=== PATIENT | female | born 1995 | race American Indian/Alaskan Native ===

== ENCOUNTER 2016-12-09 19:15 | Inpatient (IN) | payer SELFPAY ==
[2016-12-09] MEDS ORDERED: NACL 0.9% 1000 ML 1,000 ML ONE (20:02)
[2016-12-09] MEDS ORDERED: ZOFRAN ONE (20:02)
[2016-12-09 20:06] LABS: Anion Gap 35 mmol/L; BUN/Creatinine Ratio 23.75; Blood Urea Nitrogen 19 mg/dL (7-17); Calcium 9.5 mg/dL (8.4-10.2); Carbon Dioxide 15 mmol/L (22-30); Chloride 96.2 mmol/L (98-107); Glucose 125 mg/dL (65-100); Potassium 4.2 mmol/L (3.6-5.0); Sodium 142 mmol/L (137-145)
[2016-12-09] MEDS ORDERED: ZOFRAN IV ONE (20:13)
[2016-12-09] MEDS ORDERED: NACL 0.9% 1000 ML 1,000 ML IV ONE ×2 (20:13→20:49)
[2016-12-09 20:14] LABS: Urine Drugs of Abuse Note Disclamer
[2016-12-09 20:15] LABS: Basophils % (Auto) 0.4 % (0.0-1.8); Hematocrit 41.9 % (30.3-42.9); Hemoglobin 13.1 gm/dl (10.1-14.3); Mean Corpuscular HGB Conc 31 % (30-34); Mean Corpuscular Hemoglobin 27 pg (28-32); Mean Corpuscular Volume 88 fl (79-97); Platelet Count 504 K/mm3 (140-440); Red Blood Count 4.79 M/mm3 (3.65-5.03); Red Cell Distribution Width 16.8 % (13.2-15.2); White Blood Count 7.3 K/mm3 (4.5-11.0)
[2016-12-09 20:47] LABS: Bilirubin,Urine NEG (Negative); Blood,Urine NEG (Negative); Ketones,Urine 80 mg/dL (Negative); Leukocyte Esterase,Urine NEG (Negative); Mucus,Urine FEW /HPF; Nitrite,Urine NEG (Negative); RBC,Urine < 1.0 /HPF (0.0-6.0); Urobilinogen,Urine < 2.0 mg/dL (<2.0); WBC,Urine < 1.0 /HPF (0.0-6.0)
--- NOTE | 2016-12-09 20:48 | Emergency Department Report ---
HPI - General Chief Complaint: Hyperglycemia Time Seen by Provider: 12/09/16 20:09 - HPI HPI: This is a 21-year-old female presents to the emergency department, brought in by her mother, with complaint of uncontrolled diabetes and some possible altered mental status. Patient does not live with her mother but came to the mother's house early this morning saying that she was not feeling well and that she had been out of her Lantus and regular insulin for a couple of weeks. Her blood sugar was checked by mom and it was "high", greater than 500. The patient previously had taken 30 units of Lantus so this is what she was given. The blood sugar appeared to come down but they continue to check her ketones and they remained elevated and the patient appeared very fatigued so she was brought back in for further evaluation. She does not have a primary care physician. Other than the insulin-dependent diabetes she does not have any other significant past medical history. Patient is currently a poor historian secondary to her current medical condition. ED Past Medical Hx - Past Medical History Hx Congestive Heart Failure: No Hx Diabetes: Yes Hx Asthma: No Hx COPD: No Hx HIV: No Additional medical history: HX of MRSA. NEUROPATHY? - Social History Smoking Status: Never Smoker Substance Use Type: None - Medications Home Medications: Home Medications Medication Instructions Recorded Confirmed Last Taken Type Insulin Aspart [NovoLOG 100 0 units .ROUTE AC 03/04/15 04/15/15 04/14/15 History UNITS/ML VIAL] Insulin NPH/Regular [Novolin 70/30] 40 unit SQ BID 03/04/15 04/15/15 04/14/15 History Ibuprofen [Motrin] 800 mg PO Q8HR PRN #60 tablet 04/02/15 04/15/15 04/14/15 Rx Gabapentin [Neurontin] 100 mg PO Q8HR 04/09/15 04/15/15 04/14/15 History HYDROcodone/APAP 5-325 [[place] 1 each PO Q6HR PRN #14 tablet 04/09/15 04/15/15 Rx 5-325 mg TAB] traMADol [Ultram] 50 mg PO Q6HR PRN #20 tablet 04/15/15 Unknown Rx ED Review of Systems ROS: Stated complaint: KEYTONES Other details as noted in HPI Comment: All other systems reviewed and negative Constitutional: weakness. denies: chills, fever Eyes: denies: eye pain, eye discharge, vision change ENT: denies: ear pain, throat pain Respiratory: denies: cough, shortness of breath, wheezing Cardiovascular: denies: chest pain, palpitations Endocrine: increased thirst, increased urine Gastrointestinal: abdominal pain, nausea, vomiting Genitourinary: denies: dysuria, discharge Musculoskeletal: denies: back pain, joint swelling, arthralgia Neurological: weakness. denies: headache, paresthesias Physical Exam - Physical Exam Vital Signs: Vital Signs 12/09/16 19:21 Temperature 98.3 F Pulse Rate 106 H Respiratory 18 Rate Blood Pressure 116/77 O2 Sat by Pulse 100 Oximetry Physical Exam: GENERAL: The patient is ill-appearing. HENT: Normocephalic. Atraumatic. Patient has moist mucous membranes. EYES: Extraocular motions are intact. Pupils equal reactive to light bilaterally. NECK: Supple. Trachea is midline. CHEST/LUNGS: Clear to auscultation. There is no respiratory distress noted. HEART/CARDIOVASCULAR: Regular. There is mild tachycardia. There is no gallop rub or murmur. ABDOMEN: Abdomen is soft. There is upper tenderness to palpation of the abdomen. No guarding or rebound tenderness. Patient has normal bowel sounds. There is no abdominal distention. SKIN: Skin is warm and dry. NEURO: Patient is very fatigued but is arousable. She answers questions appropriately but does so in a very low soft voice. The patient will go back to sleep if not stimulated. The patient has no focal neurologic deficits. MUSCULOSKELETAL: There is no tenderness or deformity. There is no limitation range of motion. There is no evidence of acute injury. ED Course Vital Signs 12/09/16 19:21 Temperature 98.3 F Pulse Rate 106 H Respiratory 18 Rate Blood Pressure 116/77 O2 Sat by Pulse 100 Oximetry ED Medical Decision Making - Lab Data Result diagrams: 12/09/16 19:41 12/09/16 23:36 - EKG Data -: EKG Interpreted by Me EKG shows normal: sinus rhythm, axis, intervals, QRS complexes, ST-T waves Rate: tachycardia (106 bpm) - EKG Data When compared to previous EKG there are: previous EKG unavailable Interpretation: normal EKG (with sinus tach) - Radiology Data Radiology results: report reviewed CT of the abdomen and pelvis with IV contrast shows inflammatory changes adjacent to the tail of the pancreas with suspicion for acute pancreatitis. Thickened appearance of the distal esophagus likely reflecting edema and/or esophagitis. - Medical Decision Making 21-year-old female presents to the emergency department with some increased fatigue and/or transient altered mental status, diabetic issues and some abdominal pain. The patient appeared to have significant hyperglycemia prior to presentation based on history from mom. She did not have any hyperglycemia upon arrival but does have a high anion gap of 35. She also has a significant amount of ketones seen in the urine. The patient is arousable but is very sleepy. She had tenderness to palpation on the abdomen so I added LFTs and lipase and lipase came back at greater than 400. His recent CT of the abdomen and pelvis was done that shows acute pancreatitis. She was given 2 L of IV fluid resuscitation. Patient appears to have some borderline diabetic ketoacidosis in which the hyperglycemia was treated but the patient still remains with high anion gap ketosis. She will be admitted to the ICU and has been accepted for admission by Dr. Bosch. - Differential Diagnosis DKA, HHNK, pancreatitis, cholecystitis Critical Care Time: Yes Critical care time in (mins) excluding proc time.: 31 Critical care attestation.: If time is entered above; I have spent that time in minutes in the direct care of this critically ill patient, excluding procedure time. Critical care time spent on this patient during her initial evaluation, multiple re-evaluations, ordering and interpretation of labs and imaging, discussion with the family and the admitting hospitalist, disposition planning. Critical Care Time: 31 minutes ED Disposition Clinical Impression: Non compliance w medication regimen, Lactic acidosis, High anion gap metabolic acidosis, Ketosis Acute pancreatitis Qualifiers: Pancreatitis type: unspecified pancreatitis type Acute pancreatitis complication: no infection or necrosis Qualified Code(s): K85.90 - Acute pancreatitis without necrosis or infection, unspecified Disposition: OP ADMIT IP TO THIS HOSP Is pt being admited?: Yes Condition: Fair Time of Disposition: 00:27
[2016-12-09 21:09] LABS: Alanine Aminotransferase 31 units/L (7-56); Albumin 3.8 g/dL (3.9-5); Alkaline Phosphatase 165 units/L (35-129); Total Protein 7.7 g/dL (6.3-8.2)
[2016-12-09 21:11] LABS: Bilirubin,Direct < 0.2 mg/dL (0-0.2)
[2016-12-09] MEDS ORDERED: PEPCID IV ONE (21:14)
[2016-12-09 21:20] LABS: Lipase 422 units/L (13-60)
[2016-12-09] MEDS ORDERED: NACL ONE (22:03)
--- NOTE | 2016-12-09 22:38 | Cat Scan Report ---
FINAL REPORT EXAM: CT ABDOMEN PELVIS W CON HISTORY: Abd pain TECHNIQUE: CT abdomen and pelvis with intravenous contrast PRIORS: None. FINDINGS: No acute abnormality identified in the lung bases. There is thickened appearance of the shirley of the distal esophagus which appear edematous. No focal abnormality identified within the liver parenchyma. The spleen demonstrates normal size and attenuation. There is hazy and strandy inflammatory appearing change adjacent to the tail of the pancreas. The pancreas enhances normally. No evidence for pseudocyst. The kidneys demonstrate symmetric contrast enhancement. No evidence of hydronephrosis. The adrenal glands are unremarkable Abdominal aorta is normal in caliber. No pathologically enlarged lymph nodes are identified. No signs of free fluid or free air No evidence of small bowel dilatation. Colon is nondistended. No pericolonic inflammatory change. Urinary bladder is unremarkable. IMPRESSION: Inflammatory appearing change seen adjacent to the tail of the pancreas suspect acute pancreatitis Thickened appearance of the distal esophagus likely reflecting edema and/or esophagitis
[2016-12-09] MEDS ORDERED: D50W (25GM) Syringe IV PRN (23:30)
[2016-12-09] MEDS ORDERED: TYLENOL PO PRN (23:30)
[2016-12-09] MEDS ORDERED: PROTONIX IV ONE (23:33)
--- NOTE | 2016-12-09 23:33 | History and Physical Report ---
History of Present Illness Date of examination: 12/09/16 History of present illness: 21-year-old lady with a history of type 1 diabetes comes emergency room with complaints of nausea vomiting since this morning. Mom at bedside state that she has not taken her insulin in 5 days. She checked her sugar this morning and it read high, the patient to Lantus and regular insulin at home prior to coming into the emergency room. She continued to vomit and became lethargic. She had coffee-ground emesis Review Of Systems: Constitutional: no weight loss Ears, eyes, nose, mouth and throat: no nasal congestion, no nasal discharge, no sinus pressure, blurry vision, diplopia Neck: No neck pain or rigidity. Cardiovascular: NO chest pain, orthopnea, palpitations Respiratory: No shortness of breath, cough Gastrointestinal: abdominal pain, hematochezia Genitourinary : no dysuria, frequency , hematuria Musculoskeletal: no muscle ache Integumentary: no rash, no pruritis Neurological: no parathesias, focal weakness Endocrine: no cold or heat intolerance, no polyuria or polydipsia Hematologic/Lymphatic: no easy bruising, no easy bleeding, no gland swelling Allergic/Immunologic: no urticaria, no angioedema. PAST MEDICAL HISTORY:type 1 diabetes PAST SURGICAL HISTORY: None FAMILY HISTORY:diabetes SOCIAL HISTORY: Mom denies alcohol, tobacco, drugs Medications and Allergies Allergies Allergy/AdvReac Type Severity Reaction Status Date / Time Penicillins Allergy Anaphylaxis Verified 12/09/16 19:21 sulfamethoxazole Allergy Hives Verified 12/09/16 19:21 [From Bactrim] trimethoprim [From Bactrim] Allergy Hives Verified 04/09/15 17:04 Home Medications Medication Instructions Recorded Confirmed Last Taken Type Insulin Aspart [NovoLOG 100 0 units .ROUTE AC 03/04/15 04/15/15 04/14/15 History UNITS/ML VIAL] Insulin NPH/Regular [Novolin 70/30] 40 unit SQ BID 03/04/15 04/15/15 04/14/15 History Ibuprofen [Motrin] 800 mg PO Q8HR PRN #60 tablet 04/02/15 04/15/15 04/14/15 Rx Gabapentin [Neurontin] 100 mg PO Q8HR 04/09/15 04/15/15 04/14/15 History HYDROcodone/APAP 5-325 [[place] 1 each PO Q6HR PRN #14 tablet 04/09/15 04/15/15 Rx 5-325 mg TAB] traMADol [Ultram] 50 mg PO Q6HR PRN #20 tablet 04/15/15 Unknown Rx Exam - Physical Exam Narrative exam: Gen. appearance: Patient lying in bed in no acute distress HEENT: Normocephalic/atraumatic, pupils equal round reactive to light, extra alkaline movement intact, no scleral icterus, no JVD or thyromegaly or nodule, neck is supple, mucous membrane moist, no erythema or exudate Heart: S1-S2, regular rate and rhythm Lungs: Clear to auscultation bilateral breathing comfortable Abdomen: Positive bowel sounds, tender all over, nondistended, no organomegaly Extremities: No edema, cyanosis, clubbing Neuro:: Allergic, difficult to assess Skin: No rash, nodules, warm dry - Constitutional Vitals: Temp Pulse Resp BP Pulse Ox 98.3 F 111 H 21 108/55 100 12/09/16 19:21 12/09/16 23:15 12/09/16 23:15 12/09/16 23:15 12/09/16 19:21 Results - Labs CBC & Chem 7: 12/10/16 Unknown 12/10/16 23:10 Labs: Abnormal lab results 12/09/16 12/09/16 12/09/16 Range/Units 19:29 19:32 19:41 MCH 27 L (28-32) pg RDW 16.8 H (13.2-15.2) % Plt Count 504 H (140-440) K/mm3 Lymph # 1.1 L (1.2-5.4) K/mm3 Seg Neutrophils % 81.3 H (40.0-70.0) % Chloride 96.2 L (98-107) mmol/L Carbon Dioxide 15 L (22-30) mmol/L BUN 19 H (7-17) mg/dL Glucose 125 H (65-100) mg/dL POC Glucose 127 H (70-105) Lactic Acid (0.7-2.0) mmol/L Alkaline Phosphatase (35-129) units/L Albumin (3.9-5) g/dL Lipase (13-60) units/L 12/09/16 12/09/16 12/09/16 Range/Units 20:48 20:49 21:16 MCH (28-32) pg RDW (13.2-15.2) % Plt Count (140-440) K/mm3 Lymph # (1.2-5.4) K/mm3 Seg Neutrophils % (40.0-70.0) % Chloride (98-107) mmol/L Carbon Dioxide (22-30) mmol/L BUN (7-17) mg/dL Glucose (65-100) mg/dL POC Glucose 155 H (70-105) Lactic Acid 6.30 H* (0.7-2.0) mmol/L Alkaline Phosphatase 165 H (35-129) units/L Albumin 3.8 L (3.9-5) g/dL Lipase 422 H (13-60) units/L - Imaging and Cardiology EKG: image reviewed CT scan - abdomen: report reviewed CT scan - pelvis: report reviewed Assessment and Plan Assessment DKA Pancreatitis secondary to #1 Coffee-ground emesis, secondary to persistent nausea vomiting Plan Admit medicine Placed on nothing by mouth diet Start IV fluids, insulin drip, check serial chemistry, fingersticks Consult critical care, start Protonix, monitor hemoglobin DVT prophylaxis with SCD
[2016-12-10 00:07] LABS: Anion Gap 26 mmol/L; BUN/Creatinine Ratio 21.42; Blood Urea Nitrogen 15 mg/dL (7-17); Calcium 8.8 mg/dL (8.4-10.2); Carbon Dioxide 18 mmol/L (22-30); Chloride 99.6 mmol/L (98-107); Glucose 156 mg/dL (65-100); Magnesium 1.9 mg/dL (1.7-2.3); Phosphorous 2.9 mg/dL (2.5-4.5); Potassium 4.4 mmol/L (3.6-5.0); Sodium 139 mmol/L (137-145)
[2016-12-10 00:43] LABS: Hematocrit 35.5 % (30.3-42.9); Hemoglobin 11.5 gm/dl (10.1-14.3)
[2016-12-10] MEDS: ZOFRAN IV PRN ×4 (00:47→21:13)
[2016-12-10] MEDS: D5W/0.45% NACL/KCL 20 MEQ 20 MEQ/1,000 ML BAG IV SCH ×2 (00:47→09:08)
[2016-12-10] MEDS: NovoLIN R 100 UNITS in NACL 0.9% 99 ML IV SCH ×11 (00:47→19:01)
[2016-12-10 04:45] LABS: Anion Gap 27 mmol/L; BUN/Creatinine Ratio 16.25; Blood Urea Nitrogen 13 mg/dL (7-17); Carbon Dioxide 18 mmol/L (22-30); Chloride 101.4 mmol/L (98-107); Glucose 120 mg/dL (65-100); Sodium 142 mmol/L (137-145)
[2016-12-10 06:13] LABS: Basophils % (Auto) 0.1 % (0.0-1.8); Hematocrit 35.7 % (30.3-42.9); Hemoglobin 11.5 gm/dl (10.1-14.3); Mean Corpuscular HGB Conc 32 % (30-34); Mean Corpuscular Hemoglobin 28 pg (28-32); Mean Corpuscular Volume 86 fl (79-97); Platelet Count 432 K/mm3 (140-440); Red Blood Count 4.13 M/mm3 (3.65-5.03); Red Cell Distribution Width 16.4 % (13.2-15.2); White Blood Count 12.5 K/mm3 (4.5-11.0)
[2016-12-10 06:26] LABS: Anion Gap 24 mmol/L; BUN/Creatinine Ratio 17.14; Blood Urea Nitrogen 12 mg/dL (7-17); Carbon Dioxide 20 mmol/L (22-30); Chloride 101.7 mmol/L (98-107); Glucose 139 mg/dL (65-100); Potassium 3.8 mmol/L (3.6-5.0); Sodium 142 mmol/L (137-145)
--- NOTE | 2016-12-10 07:12 | Admit Criteria Form ---
Admission Criteria Documentation: PANCREATITIS Clinical Indications for Admission to Inpatient Care (Place 'X' for any and all applicable criteria): Admission is indicated for 1 or more of the following (1)(2)(3)(4): [X]I. Acute pancreatitis[A] as indicated by 2 or MORE of the following: [ ]a) Abdominal pain (eg, epigastric, left upper quadrant) [X]b) Serum amylase or serum lipase greater than 3 times the upper limit of normal [X]c) Characteristic findings from abdominal imaging (eg, pancreatic inflammation, pancreatic necrosis, peripancreatic fluid collection)[B] [ ]II. Pancreatitis (acute or chronic ) requiring inpatient care as indicated by 1 or more of the following [ ]a) Inability to maintain oral hydration Hypoxemia [ ]b) Evidence of infection (eg, fever, peripancreatic abscess) [ ]c) Severe pain requiring acute inpatient management [ ]d) Hemodynamic instability [ ]e) Hypoxemia [ ]f) Acute renal failure [ ]g) Severe electrolyte abnormalities Extended stay beyond goal length of stay may be needed for (1)(11) [ ]a) Severe acute pancreatitis (10)(19) [ ]b) Persistent symptoms, ascites, or pleural effusion [ ]c) Abdominal compartment syndrome (10) [ ]d) Late complications [ ]e) Gallstones in gallbladder [ ]f) Acute renal failure (27) The original [employer] content created by [employer] has been revised. The portions of the content which have been revised are identified through the use of italic text or in bold,and [facility] has neither reviewed nor approved the modified material.All other unmodified content is copyright [facility]. Please see references footnoted in the original [facility] edition 2016 Admission Criteria Met: Yes
[2016-12-10 08:02] LABS: Hematocrit 35.2 % (30.3-42.9); Hemoglobin 11.5 gm/dl (10.1-14.3)
[2016-12-10 08:21] LABS: Anion Gap 25 mmol/L; BUN/Creatinine Ratio 15.71; Blood Urea Nitrogen 11 mg/dL (7-17); Calcium 8.8 mg/dL (8.4-10.2); Carbon Dioxide 19 mmol/L (22-30); Glucose 114 mg/dL (65-100); Potassium 3.9 mmol/L (3.6-5.0); Sodium 142 mmol/L (137-145)
[2016-12-10] MEDS: PROTONIX IV SCH (10:20)
--- NOTE | 2016-12-10 13:17 | Progress Note ---
Assessment and Plan Assessment and plan: DKA. Continue IV insulin and IV fluids. Follow-up BMP. Transition to long- acting insulin once and anion gap is closed. Acute pancreatitis. Continue nothing by mouth. IV fluid hydration and pain control. Coffee-ground emesis. Etiology likely secondary to Jossie-Avalos tear from vomiting. Consider GI consultation. Continue to monitor H&H closely. Metabolic encephalopathy. Resolved. Lactic acidosis. Etiology likely secondary to #1. No evidence of infectious etiology at this time. Leukocytosis. Most likely stress-induced secondary to #1. History Interval history: No new complaints. Hospitalist Physical - Constitutional Vitals: Temp Pulse Resp BP Pulse Ox 98.3 F 101 H 14 116/88 98 12/10/16 07:44 12/10/16 11:14 12/10/16 11:14 12/10/16 11:14 12/10/16 11:14 General appearance: Present: no acute distress, well-nourished - EENT Eyes: Present: PERRL, EOM intact ENT: hearing intact, clear oral mucosa, dentition normal - Neck Neck: Present: supple, normal ROM - Respiratory Respiratory effort: normal Respiratory: bilateral: CTA - Cardiovascular Rhythm: regular Heart Sounds: Present: S1 & S2. Absent: gallop, rub - Extremities Extremities: no ischemia, No edema, Full ROM - Abdominal General gastrointestinal: soft, non-tender, non-distended, normal bowel sounds - Integumentary Integumentary: Present: clear, warm, dry - Neurologic Neurologic: CNII-XII intact, moves all extremities Results - Labs CBC & Chem 7: 12/10/16 Unknown 12/10/16 07:32 Labs: Laboratory Last Values WBC 12.5 K/mm3 (4.5-11.0) H 12/10/16 05:32 RBC 4.13 M/mm3 (3.65-5.03) 12/10/16 05:32 Hgb 11.5 gm/dl (10.1-14.3) 12/10/16 Unknown Hct 35.5 % (30.3-42.9) D 12/10/16 Unknown MCV 86 fl (79-97) 12/10/16 05:32 MCH 28 pg (28-32) 12/10/16 05:32 MCHC 32 % (30-34) 12/10/16 05:32 RDW 16.4 % (13.2-15.2) H 12/10/16 05:32 Plt Count 432 K/mm3 (140-440) 12/10/16 05:32 Lymph % (Auto) 11.3 % (13.4-35.0) L 12/10/16 05:32 [place] % (Auto) 10.5 % (0.0-7.3) H 12/10/16 05:32 Eos % (Auto) 0.0 % (0.0-4.3) 12/10/16 05:32 Baso % (Auto) 0.1 % (0.0-1.8) 12/10/16 05:32 Lymph # 1.4 K/mm3 (1.2-5.4) 12/10/16 05:32 [place] # 1.3 K/mm3 (0.0-0.8) H 12/10/16 05:32 Eos # 0.0 K/mm3 (0.0-0.4) 12/10/16 05:32 Baso # 0.0 K/mm3 (0.0-0.1) 12/10/16 05:32 Seg Neutrophils % 78.1 % (40.0-70.0) H 12/10/16 05:32 Seg Neutrophils # 9.8 K/mm3 (1.8-7.7) H 12/10/16 05:32 VBG pH 7.341 (7.320-7.420) 12/09/16 19:32 Sodium 142 mmol/L (137-145) 12/10/16 07:32 Potassium 3.9 mmol/L (3.6-5.0) 12/10/16 07:32 Chloride 102.0 mmol/L (98-107) 12/10/16 07:32 Carbon Dioxide 19 mmol/L (22-30) L 12/10/16 07:32 Anion Gap 25 mmol/L 12/10/16 07:32 BUN 11 mg/dL (7-17) 12/10/16 07:32 Creatinine 0.7 mg/dL (0.7-1.2) 12/10/16 07:32 Estimated GFR > 60 ml/min 12/10/16 07:32 BUN/Creatinine Ratio 15.71 % 12/10/16 07:32 Glucose 114 mg/dL (65-100) H 12/10/16 07:32 POC Glucose 172 (70-105) H 12/10/16 12:54 Hemoglobin A1c 12.9 % (4-6) H 12/09/16 23:36 Lactic Acid 6.30 mmol/L (0.7-2.0) H* 12/09/16 21:16 Calcium 8.8 mg/dL (8.4-10.2) 12/10/16 07:32 Phosphorus 2.90 mg/dL (2.5-4.5) 12/09/16 23:36 Magnesium 1.90 mg/dL (1.7-2.3) 12/09/16 23:36 Total Bilirubin 0.20 mg/dL (0.1-1.2) 12/09/16 20:48 Direct Bilirubin < 0.2 mg/dL (0-0.2) 12/09/16 20:48 Indirect Bilirubin 0.0 mg/dL 12/09/16 20:48 AST 37 units/L (5-40) 12/09/16 20:48 ALT 31 units/L (7-56) 12/09/16 20:48 Alkaline Phosphatase 165 units/L (35-129) H 12/09/16 20:48 Total Creatine Kinase 85 units/L (30-135) 12/09/16 20:48 Troponin T < 0.010 ng/mL (0.00-0.029) 12/09/16 21:16 Total Protein 7.7 g/dL (6.3-8.2) 12/09/16 20:48 Albumin 3.8 g/dL (3.9-5) L 12/09/16 20:48 Albumin/Globulin Ratio 1.0 % 12/09/16 20:48 Lipase 422 units/L (13-60) H 12/09/16 20:48 TSH 0.953 mlU/mL (0.270-4.200) 12/09/16 20:48 Urine Color Yellow (Yellow) 12/09/16 20:12 Urine Turbidity Clear (Clear) 12/09/16 20:12 Urine pH 5.0 (5.0-7.0) 12/09/16 20:12 Ur Specific [place] 1.018 (1.003-1.030) 12/09/16 20:12 Urine Protein 30 mg/dl mg/dL (Negative) 12/09/16 20:12 Urine Glucose (UA) >=500 mg/dL (Negative) 12/09/16 20:12 Urine Ketones 80 mg/dL (Negative) 12/09/16 20:12 Urine Blood Neg (Negative) 12/09/16 20:12 Urine Nitrite Neg (Negative) 12/09/16 20:12 Urine Bilirubin Neg (Negative) 12/09/16 20:12 Urine Urobilinogen < 2.0 mg/dL (<2.0) 12/09/16 20:12 Ur Leukocyte Esterase Neg (Negative) 12/09/16 20:12 Urine WBC (Auto) < 1.0 /HPF (0.0-6.0) 12/09/16 20:12 Urine RBC (Auto) < 1.0 /HPF (0.0-6.0) 12/09/16 20:12 U Epithel Cells (Auto) < 1.0 /HPF (0-13.0) 12/09/16 20:12 Urine Mucus Few /HPF 12/09/16 20:12 Urine HCG, Qual Negative (Negative) 12/09/16 20:12 Urine Opiates Screen Presumptive negative 12/09/16 20:12 Urine Methadone Screen Presumptive negative 12/09/16 20:12 Ur Barbiturates Screen Presumptive negative 12/09/16 20:12 Ur Phencyclidine Scrn Presumptive negative 12/09/16 20:12 Ur Amphetamines Screen Presumptive negative 12/09/16 20:12 U Benzodiazepines Scrn Presumptive negative 12/09/16 20:12 Urine Cocaine Screen Presumptive negative 12/09/16 20:12 U Marijuana (THC) Screen Presumptive negative 12/09/16 20:12 Drugs of Abuse Note Disclamer 12/09/16 20:12 Plasma/Serum Alcohol < 0.01 gm% (0-0.07) 12/09/16 21:16
--- NOTE | 2016-12-10 15:02 | Event Note ---
Date: 12/10/16
[2016-12-10 15:38] LABS: Anion Gap 24 mmol/L; BUN/Creatinine Ratio 12.85; Blood Urea Nitrogen 9 mg/dL (7-17); Calcium 9.1 mg/dL (8.4-10.2); Carbon Dioxide 20 mmol/L (22-30); Glucose 116 mg/dL (65-100); Potassium 3.6 mmol/L (3.6-5.0); Sodium 143 mmol/L (137-145)
[2016-12-10] MEDS: MORPHINE IV PRN ×2 (16:15→23:12)
[2016-12-10] MEDS: REGLAN IV PRN ×2 (16:16→23:12)
[2016-12-10 23:57] LABS: Anion Gap 20 mmol/L; BUN/Creatinine Ratio 11.66; Blood Urea Nitrogen 7 mg/dL (7-17); Calcium 8.8 mg/dL (8.4-10.2); Carbon Dioxide 21 mmol/L (22-30); Chloride 104.4 mmol/L (98-107); Glucose 90 mg/dL (65-100); Potassium 3.5 mmol/L (3.6-5.0); Sodium 142 mmol/L (137-145)
[2016-12-11] MEDS: D5W/0.45% NACL/KCL 20 MEQ 20 MEQ/1,000 ML BAG IV SCH (02:08)
[2016-12-11] MEDS: ZOFRAN IV PRN ×3 (06:51→21:55)
[2016-12-11] MEDS: REGLAN IV PRN (06:51)
[2016-12-11] MEDS: MORPHINE IV PRN (08:05)
[2016-12-11] MEDS: NovoLIN R 100 UNITS in NACL 0.9% 99 ML IV SCH ×3 (09:00→11:00)
[2016-12-11 09:20] LABS: Anion Gap 19 mmol/L; Blood Urea Nitrogen 5 mg/dL (7-17); Calcium 8.3 mg/dL (8.4-10.2); Carbon Dioxide 20 mmol/L (22-30); Chloride 104.4 mmol/L (98-107); Glucose 181 mg/dL (65-100); Sodium 139 mmol/L (137-145)
[2016-12-11] MEDS: PROTONIX IV SCH (10:30)
[2016-12-11] MEDS ORDERED: ULTRAM PO PRN (13:39)
[2016-12-11] MEDS ORDERED: D50W (25GM) Syringe IV PRN (13:45)
--- NOTE | 2016-12-11 13:59 | Progress Note ---
Assessment and Plan Assessment and plan: DKA. The anion gap is closed. Patient will be transitioned to long-acting insulin. Patient will restart her insulin regimen this evening 70/30 insulin 40 units twice a day if her lipase has trended downward and pancreatitis has stabilized in order to possibly tolerate po diet. Acute pancreatitis. Recheck lipase level now. CT scan of the abdomen revealed inflammatory changes at the tail of the pancreas. GI consultation Coffee-ground emesis. Etiology likely secondary to Jossie-Avalos tear from vomiting. Pt. also has some evidence of esophagitis on CT. GI consultation. Continue to monitor H&H closely. Metabolic encephalopathy. Resolved. Lactic acidosis. Etiology likely secondary to #1. No evidence of infectious etiology at this time. Leukocytosis. Most likely stress-induced secondary to #1. History Interval history: No new complaints. Hospitalist Physical - Constitutional Vitals: Temp Pulse Resp BP Pulse Ox 98.9 F 94 H 18 111/71 96 12/11/16 07:42 12/11/16 07:42 12/11/16 07:42 12/11/16 07:42 12/11/16 07:42 General appearance: Present: no acute distress, well-nourished - EENT Eyes: Present: PERRL, EOM intact ENT: hearing intact, clear oral mucosa, dentition normal - Neck Neck: Present: supple, normal ROM - Respiratory Respiratory effort: normal Respiratory: bilateral: CTA - Cardiovascular Rhythm: regular Heart Sounds: Present: S1 & S2. Absent: gallop, rub - Extremities Extremities: no ischemia, No edema, Full ROM - Abdominal General gastrointestinal: soft, non-tender, non-distended, normal bowel sounds - Integumentary Integumentary: Present: clear, warm, dry - Neurologic Neurologic: CNII-XII intact, moves all extremities Results - Labs CBC & Chem 7: 12/10/16 Unknown 12/11/16 08:39 Labs: Laboratory Last Values WBC 12.5 K/mm3 (4.5-11.0) H 12/10/16 05:32 RBC 4.13 M/mm3 (3.65-5.03) 12/10/16 05:32 Hgb 11.5 gm/dl (10.1-14.3) 12/10/16 Unknown Hct 35.5 % (30.3-42.9) D 12/10/16 Unknown MCV 86 fl (79-97) 12/10/16 05:32 MCH 28 pg (28-32) 12/10/16 05:32 MCHC 32 % (30-34) 12/10/16 05:32 RDW 16.4 % (13.2-15.2) H 12/10/16 05:32 Plt Count 432 K/mm3 (140-440) 12/10/16 05:32 Lymph % (Auto) 11.3 % (13.4-35.0) L 12/10/16 05:32 [place] % (Auto) 10.5 % (0.0-7.3) H 12/10/16 05:32 Eos % (Auto) 0.0 % (0.0-4.3) 12/10/16 05:32 Baso % (Auto) 0.1 % (0.0-1.8) 12/10/16 05:32 Lymph # 1.4 K/mm3 (1.2-5.4) 12/10/16 05:32 [place] # 1.3 K/mm3 (0.0-0.8) H 12/10/16 05:32 Eos # 0.0 K/mm3 (0.0-0.4) 12/10/16 05:32 Baso # 0.0 K/mm3 (0.0-0.1) 12/10/16 05:32 Seg Neutrophils % 78.1 % (40.0-70.0) H 12/10/16 05:32 Seg Neutrophils # 9.8 K/mm3 (1.8-7.7) H 12/10/16 05:32 VBG pH 7.341 (7.320-7.420) 12/09/16 19:32 Sodium 139 mmol/L (137-145) 12/11/16 08:39 Potassium 4.0 mmol/L (3.6-5.0) 12/11/16 08:39 Chloride 104.4 mmol/L (98-107) 12/11/16 08:39 Carbon Dioxide 20 mmol/L (22-30) L 12/11/16 08:39 Anion Gap 19 mmol/L 12/11/16 08:39 BUN 5 mg/dL (7-17) L 12/11/16 08:39 Creatinine 0.5 mg/dL (0.7-1.2) L 12/11/16 08:39 Estimated GFR > 60 ml/min 12/11/16 08:39 BUN/Creatinine Ratio 10.00 % 12/11/16 08:39 Glucose 181 mg/dL (65-100) H 12/11/16 08:39 POC Glucose 220 (70-105) H 12/11/16 13:22 Hemoglobin A1c 12.9 % (4-6) H 12/09/16 23:36 Lactic Acid 6.30 mmol/L (0.7-2.0) H* 12/09/16 21:16 Calcium 8.3 mg/dL (8.4-10.2) L 12/11/16 08:39 Phosphorus 2.90 mg/dL (2.5-4.5) 12/09/16 23:36 Magnesium 1.90 mg/dL (1.7-2.3) 12/09/16 23:36 Total Bilirubin 0.20 mg/dL (0.1-1.2) 12/09/16 20:48 Direct Bilirubin < 0.2 mg/dL (0-0.2) 12/09/16 20:48 Indirect Bilirubin 0.0 mg/dL 12/09/16 20:48 AST 37 units/L (5-40) 12/09/16 20:48 ALT 31 units/L (7-56) 12/09/16 20:48 Alkaline Phosphatase 165 units/L (35-129) H 12/09/16 20:48 Total Creatine Kinase 85 units/L (30-135) 12/09/16 20:48 Troponin T < 0.010 ng/mL (0.00-0.029) 12/09/16 21:16 Total Protein 7.7 g/dL (6.3-8.2) 12/09/16 20:48 Albumin 3.8 g/dL (3.9-5) L 12/09/16 20:48 Albumin/Globulin Ratio 1.0 % 12/09/16 20:48 Lipase 422 units/L (13-60) H 12/09/16 20:48 TSH 0.953 mlU/mL (0.270-4.200) 12/09/16 20:48 Urine Color Yellow (Yellow) 12/09/16 20:12 Urine Turbidity Clear (Clear) 12/09/16 20:12 Urine pH 5.0 (5.0-7.0) 12/09/16 20:12 Ur Specific [place] 1.018 (1.003-1.030) 12/09/16 20:12 Urine Protein 30 mg/dl mg/dL (Negative) 12/09/16 20:12 Urine Glucose (UA) >=500 mg/dL (Negative) 12/09/16 20:12 Urine Ketones 80 mg/dL (Negative) 12/09/16 20:12 Urine Blood Neg (Negative) 12/09/16 20:12 Urine Nitrite Neg (Negative) 12/09/16 20:12 Urine Bilirubin Neg (Negative) 12/09/16 20:12 Urine Urobilinogen < 2.0 mg/dL (<2.0) 12/09/16 20:12 Ur Leukocyte Esterase Neg (Negative) 12/09/16 20:12 Urine WBC (Auto) < 1.0 /HPF (0.0-6.0) 12/09/16 20:12 Urine RBC (Auto) < 1.0 /HPF (0.0-6.0) 12/09/16 20:12 U Epithel Cells (Auto) < 1.0 /HPF (0-13.0) 12/09/16 20:12 Urine Mucus Few /HPF 12/09/16 20:12 Urine HCG, Qual Negative (Negative) 12/09/16 20:12 Urine Opiates Screen Presumptive negative 12/09/16 20:12 Urine Methadone Screen Presumptive negative 12/09/16 20:12 Ur Barbiturates Screen Presumptive negative 12/09/16 20:12 Ur Phencyclidine Scrn Presumptive negative 12/09/16 20:12 Ur Amphetamines Screen Presumptive negative 12/09/16 20:12 U Benzodiazepines Scrn Presumptive negative 12/09/16 20:12 Urine Cocaine Screen Presumptive negative 12/09/16 20:12 U Marijuana (THC) Screen Presumptive negative 12/09/16 20:12 Drugs of Abuse Note Disclamer 12/09/16 20:12 Plasma/Serum Alcohol < 0.01 gm% (0-0.07) 12/09/16 21:16
[2016-12-11 14:40] LABS: Basophils % (Auto) 0.5 % (0.0-1.8); Eosinophils % (Auto) 0.3 % (0.0-4.3); Hematocrit 32.2 % (30.3-42.9); Hemoglobin 10.8 gm/dl (10.1-14.3); Mean Corpuscular HGB Conc 34 % (30-34); Mean Corpuscular Hemoglobin 28 pg (28-32); Mean Corpuscular Volume 85 fl (79-97); Platelet Count 334 K/mm3 (140-440); Red Blood Count 3.81 M/mm3 (3.65-5.03); Red Cell Distribution Width 16.8 % (13.2-15.2); White Blood Count 8.8 K/mm3 (4.5-11.0)
[2016-12-11] MEDS: NEURONTIN PO SCH ×2 (15:00→21:56)
--- NOTE | 2016-12-11 17:38 | Gastroenterology Consultation ---
History of Present Illness - Reason for Consult Consult date: 12/11/16 pancreatitis and coffee ground emesis Requesting physician: ALECIA TURNER - History of Present Illness The patient is a 21 year old female who has had type I diabetes mellitus since the age of 5. The patient has been non compliant according to her father for most of this time and an insulin pump was place and removed for this reason. She apparently stopped taking insulin 5 days ago and was admitted with DKA. The patient began having nausea and vomiting after this time and vomited some coffee colored material once. She has not had a BM in 4 days. Mild elevation of her lipase at 422 was noted, however she denies any abdominal pain. There is no history of ETOH or tobacco use and she has no prior history of pancreatitis. Past History Past Medical History: diabetes, other (diabetic neuropathy) Past Surgical History: No surgical history Social history: single, lives with family, other (completed high school, lives at home) Family history: diabetes (sister with type I diabetes) Medications and Allergies Allergies Allergy/AdvReac Type Severity Reaction Status Date / Time Penicillins Allergy Anaphylaxis Verified 12/09/16 19:21 sulfamethoxazole Allergy Hives Verified 12/09/16 19:21 [From Bactrim] trimethoprim [From Bactrim] Allergy Hives Verified 04/09/15 17:04 Home Medications Medication Instructions Recorded Confirmed Last Taken Type Insulin Aspart [NovoLOG 100 0 units .ROUTE AC 03/04/15 04/15/15 04/14/15 History UNITS/ML VIAL] Insulin NPH/Regular [Novolin 70/30] 40 unit SQ BID 03/04/15 04/15/15 04/14/15 History Ibuprofen [Motrin] 800 mg PO Q8HR PRN #60 tablet 04/02/15 04/15/15 04/14/15 Rx Gabapentin [Neurontin] 100 mg PO Q8HR 04/09/15 04/15/15 04/14/15 History HYDROcodone/APAP 5-325 [[place] 1 each PO Q6HR PRN #14 tablet 04/09/15 04/15/15 Rx 5-325 mg TAB] traMADol [Ultram] 50 mg PO Q6HR PRN #20 tablet 04/15/15 Unknown Rx Active Meds: Active Medications Acetaminophen (Tylenol) 650 mg PO Q4H PRN PRN Reason: Pain MILD(1-3)/Fever >100.5/CISNEROS Last Admin: 12/10/16 08:50 Dose: 650 mg Dextrose (D50w (25gm) Syringe) 50 ml IV PRN PRN PRN Reason: Hypoglycemia Gabapentin (Neurontin) 100 mg PO Q8HR [facility] Last Admin: 12/11/16 15:00 Dose: 100 mg Sodium Chloride (Nacl 0.9% 1000 Ml) 1,000 mls @ 150 mls/hr IV DIRECT [facility] Insulin Human Regular (Novolin R) 0 units SUB-Q ACHS [facility] PRN Reason: Protocol Metoclopramide HCl (Reglan) 10 mg IV Q6H PRN PRN Reason: Nausea And Vomiting Last Admin: 12/11/16 06:51 Dose: 10 mg Morphine Sulfate (Morphine) 1 mg IV Q6H PRN PRN Reason: Pain, Moderate (4-6) Last Admin: 12/11/16 08:05 Dose: 1 mg Ondansetron HCl (Zofran) 4 mg IV Q4H PRN PRN Reason: N/V unrelieved by Reglan Last Admin: 12/11/16 11:50 Dose: 4 mg Pantoprazole Sodium (Protonix) 40 mg IV DAILY [facility] Last Admin: 12/11/16 10:30 Dose: 40 mg Tramadol HCl (Ultram) 50 mg PO Q6HR PRN PRN Reason: Pain Review of Systems - Review of Systems Constitutional: no weight loss, no weight gain, no fever, no chills Eyes: no change in vision Ears, Nose, Throat: no decreased hearing, no difficulty swallowing, no painful swallowing Breasts: deferred Cardiovascular: no chest pain, no edema, no shortness of breath Respiratory: no cough, no shortness of breath, no wheezing Gastrointestinal: nausea, vomiting, coffee ground emesis, no abdominal pain, no change in bowel habits, no melena, no hematochezia, no heartburn, no indigestion Rectal: no pain, no bleeding Female Genitourinary: deferred Musculoskeletal: no gait dysfunction, no joint pain, no muscle pain Integumentary: no rash, no pruritis, no jaundice Neurological: sensory deficit (diabetic neuropathy of lower extremities), no head injury, no paralysis Psychiatric: no anxiety, no change in appetite Endocrine: no cold intolerance Hematologic/Lymphatic: no easy bruising, no easy bleeding Allergic/Immunologic: no wheezing, no angioedema Exam - Constitutional Vital Signs: Temp Pulse Resp BP Pulse Ox 98 F 95 H 18 110/73 96 12/11/16 12:30 12/11/16 12:30 12/11/16 12:30 12/11/16 12:30 12/11/16 12:30 General appearance: no acute distress, well-nourished - EENT Eyes: PERRL ENT: hearing intact, clear oral mucosa, dentition normal - Neck Neck: supple, normal ROM, no masses or JVD - Respiratory Respiratory effort: normal Respiratory: bilateral: CTA - Breasts Breasts: deferred - Cardiovascular Rhythm: regular Heart Sounds: Present: S1 & S2. Absent: gallop, rub Extremities: pulses intact, No edema, normal color, Full ROM Extremity abnormal: other (multiple excoriations of the lower extremities) - Gastrointestinal General gastrointestinal: Present: soft, non-tender, non-distended, normal bowel sounds. Absent: hepatomegaly, splenomegaly, mass Rectal Exam: deferred - Genitourinary Female Genitourinary: deferred - Integumentary Integumentary: Present: clear, warm, dry - Neurologic Neurological: alert and oriented x3 - Labs CBC & Chem 7: 12/11/16 14:21 12/11/16 08:39 Lab Results: Laboratory Results - last 24 hr 12/10/16 12/10/16 12/10/16 16:32 18:18 19:03 WBC RBC Hgb Hct MCV MCH MCHC RDW Plt Count Lymph % (Auto) [place] % (Auto) Eos % (Auto) Baso % (Auto) Lymph # [place] # Eos # Baso # Seg Neutrophils % Seg Neutrophils # Sodium Potassium Chloride Carbon Dioxide Anion Gap BUN Creatinine Estimated GFR BUN/Creatinine Ratio Glucose POC Glucose 158 H 112 H 103 Calcium Lipase 12/10/16 12/10/16 12/10/16 20:17 21:07 23:10 WBC RBC Hgb Hct MCV MCH MCHC RDW Plt Count Lymph % (Auto) [place] % (Auto) Eos % (Auto) Baso % (Auto) Lymph # [place] # Eos # Baso # Seg Neutrophils % Seg Neutrophils # Sodium 142 Potassium 3.5 L Chloride 104.4 Carbon Dioxide 21 L Anion Gap 20 BUN 7 Creatinine 0.6 L Estimated GFR > 60 BUN/Creatinine Ratio 11.66 Glucose 90 POC Glucose 148 H 167 H Calcium 8.8 Lipase 12/10/16 12/11/16 12/11/16 23:11 00:08 01:08 WBC RBC Hgb Hct MCV MCH MCHC RDW Plt Count Lymph % (Auto) [place] % (Auto) Eos % (Auto) Baso % (Auto) Lymph # [place] # Eos # Baso # Seg Neutrophils % Seg Neutrophils # Sodium Potassium Chloride Carbon Dioxide Anion Gap BUN Creatinine Estimated GFR BUN/Creatinine Ratio Glucose POC Glucose 97 169 H 240 H Calcium Lipase 12/11/16 12/11/16 12/11/16 02:15 03:06 04:05 WBC RBC Hgb Hct MCV MCH MCHC RDW Plt Count Lymph % (Auto) [place] % (Auto) Eos % (Auto) Baso % (Auto) Lymph # [place] # Eos # Baso # Seg Neutrophils % Seg Neutrophils # Sodium Potassium Chloride Carbon Dioxide Anion Gap BUN Creatinine Estimated GFR BUN/Creatinine Ratio Glucose POC Glucose 131 H 115 H 164 H Calcium Lipase 12/11/16 12/11/16 12/11/16 05:16 06:08 07:02 WBC RBC Hgb Hct MCV MCH MCHC RDW Plt Count Lymph % (Auto) [place] % (Auto) Eos % (Auto) Baso % (Auto) Lymph # [place] # Eos # Baso # Seg Neutrophils % Seg Neutrophils # Sodium Potassium Chloride Carbon Dioxide Anion Gap BUN Creatinine Estimated GFR BUN/Creatinine Ratio Glucose POC Glucose 149 H 150 H 123 H Calcium Lipase 12/11/16 12/11/16 12/11/16 08:13 08:39 08:39 WBC RBC Hgb Hct MCV MCH MCHC RDW Plt Count Lymph % (Auto) [place] % (Auto) Eos % (Auto) Baso % (Auto) Lymph # [place] # Eos # Baso # Seg Neutrophils % Seg Neutrophils # Sodium 139 Potassium 4.0 Chloride 104.4 Carbon Dioxide 20 L Anion Gap 19 BUN 5 L Creatinine 0.5 L Estimated GFR > 60 BUN/Creatinine Ratio 10.00 Glucose 181 H POC Glucose 195 H Calcium 8.3 L Lipase 430 H 12/11/16 12/11/16 12/11/16 09:11 10:12 11:10 WBC RBC Hgb Hct MCV MCH MCHC RDW Plt Count Lymph % (Auto) [place] % (Auto) Eos % (Auto) Baso % (Auto) Lymph # [place] # Eos # Baso # Seg Neutrophils % Seg Neutrophils # Sodium Potassium Chloride Carbon Dioxide Anion Gap BUN Creatinine Estimated GFR BUN/Creatinine Ratio Glucose POC Glucose 189 H 220 H 141 H Calcium Lipase 12/11/16 12/11/16 12/11/16 12:11 12:42 13:22 WBC RBC Hgb Hct MCV MCH MCHC RDW Plt Count Lymph % (Auto) [place] % (Auto) Eos % (Auto) Baso % (Auto) Lymph # [place] # Eos # Baso # Seg Neutrophils % Seg Neutrophils # Sodium Potassium Chloride Carbon Dioxide Anion Gap BUN Creatinine Estimated GFR BUN/Creatinine Ratio Glucose POC Glucose 62 L 113 H 220 H Calcium Lipase 12/11/16 14:21 WBC 8.8 RBC 3.81 Hgb 10.8 Hct 32.2 MCV 85 MCH 28 MCHC 34 RDW 16.8 H Plt Count 334 Lymph % (Auto) 23.9 [place] % (Auto) 10.0 H Eos % (Auto) 0.3 Baso % (Auto) 0.5 Lymph # 2.1 [place] # 0.9 H Eos # 0.0 Baso # 0.0 Seg Neutrophils % 65.3 Seg Neutrophils # 5.8 Sodium Potassium Chloride Carbon Dioxide Anion Gap BUN Creatinine Estimated GFR BUN/Creatinine Ratio Glucose POC Glucose Calcium Lipase - Imaging CT Scan: report reviewed, image reviewed Assessment and Plan - Patient Problems (1) Hematemesis Current Visit: Yes Status: Acute Qualifiers: Nausea presence: N Plan to address problem: Minor hematemesis. No evidence of significant bleeding. Will consider EGD once DKA is under control to rule out PUD. A Jossie Avalos tear is more likely. (2) DKA (diabetic ketoacidoses) Current Visit: Yes Status: Acute Qualifiers: Diabetes mellitus type: D Diabetes mellitus complication detail: D (3) Non-compliance Current Visit: No Status: Acute (4) Elevated lipase Current Visit: Yes Status: Acute Plan to address problem: She does not appear to have clinical pancreatitis. The mild elevation of the lipase is not specific and although there are mild changes, fat stranding at the tail of the pancreas, she has no abdominal pain. Typically a healthy young individual with acute pancreatitis would have a lipase over 1000 to be more specific. Lower levels may be seen in chronic pancreatitis. Needs no specific therapy. Would advance diet. Will plan u/s to exclude stones
[2016-12-11] MEDS: NACL 0.9% 1000 ML 1,000 ML IV SCH (19:39)
[2016-12-12] MEDS: NACL 0.9% 1000 ML 1,000 ML IV SCH (03:26)
[2016-12-12 05:11] LABS: Basophils % (Auto) 0.5 % (0.0-1.8); Eosinophils % (Auto) 0.4 % (0.0-4.3); Hematocrit 31.4 % (30.3-42.9); Hemoglobin 10.2 gm/dl (10.1-14.3); Mean Corpuscular HGB Conc 32 % (30-34); Mean Corpuscular Hemoglobin 28 pg (28-32); Mean Corpuscular Volume 87 fl (79-97); Platelet Count 285 K/mm3 (140-440); Red Blood Count 3.61 M/mm3 (3.65-5.03); Red Cell Distribution Width 17.4 % (13.2-15.2); White Blood Count 6.4 K/mm3 (4.5-11.0)
[2016-12-12] MEDS: NEURONTIN PO SCH ×2 (08:12→14:32)
[2016-12-12 09:05] LABS: Anion Gap 18 mmol/L; Blood Urea Nitrogen 5 mg/dL (7-17); Calcium 8.5 mg/dL (8.4-10.2); Carbon Dioxide 21 mmol/L (22-30); Chloride 100.7 mmol/L (98-107); Glucose 252 mg/dL (65-100); Potassium 4.3 mmol/L (3.6-5.0); Sodium 135 mmol/L (137-145)
--- NOTE | 2016-12-12 09:17 | Gastroenterology Progress Note ---
<EMANUEL HORNE - Last Filed: 12/12/16 09:21> Assessment and Plan 1.hematemesis 2.elevated lipase 3.DKA -Lipase 120- trending down -abd u/s-results pending -HGB 10.2-stable -continue to monitor H/H and transfuse as needed -no active signs of bleeding overnight or this am -continue PPI -etiology most likely due to a M-W tear -clinically pt is feeling much better, denies N/V or abd pain and tolerated a regular diet this am -recommend pt have an EGD as an outpatient -pt is okay to be d/c from GI standpoint on daily PPI with a f/u clinic appt in 2 weeks -will sign off Subjective Date of service: 12/12/16 Principal diagnosis: hematemesis, elevated lipase Interval history: Patient sitting up in bed this morning. No distress noted. Tolerated a regular breakfast without N/V or abd pain. No active signs of bleeding overnight or this am. Objective - Constitutional Vitals: Temp Pulse Resp BP Pulse Ox 98.8 F 100 H 16 100/70 98 12/12/16 04:17 12/12/16 04:17 12/12/16 04:17 12/12/16 04:17 12/12/16 01:07 General appearance: no acute distress, well-nourished - EENT Eyes: PERRL, EOM intact ENT: hearing intact - Neck Neck: supple, normal ROM - Respiratory Respiratory: bilateral: CTA - Cardiovascular Rhythm: regular Heart Sounds: Present: S1 & S2 - Extremities Extremities: No edema - Gastrointestinal General gastrointestinal: Present: soft, non-tender, non-distended, normal bowel sounds - Integumentary Integumentary: Present: warm, dry - Neurologic Neurological: alert and oriented x3 - Labs CBC & Chem 7: 12/12/16 04:52 12/12/16 08:27 Labs: Laboratory Results - last 24 hr 12/11/16 12/11/16 12/11/16 08:39 08:39 10:12 WBC RBC Hgb Hct MCV MCH MCHC RDW Plt Count Lymph % (Auto) [place] % (Auto) Eos % (Auto) Baso % (Auto) Lymph # [place] # Eos # Baso # Seg Neutrophils % Seg Neutrophils # Sodium 139 Potassium 4.0 Chloride 104.4 Carbon Dioxide 20 L Anion Gap 19 BUN 5 L Creatinine 0.5 L Estimated GFR > 60 BUN/Creatinine Ratio 10.00 Glucose 181 H POC Glucose 220 H Calcium 8.3 L Lipase 430 H 12/11/16 12/11/16 12/11/16 11:10 12:11 12:42 WBC RBC Hgb Hct MCV MCH MCHC RDW Plt Count Lymph % (Auto) [place] % (Auto) Eos % (Auto) Baso % (Auto) Lymph # [place] # Eos # Baso # Seg Neutrophils % Seg Neutrophils # Sodium Potassium Chloride Carbon Dioxide Anion Gap BUN Creatinine Estimated GFR BUN/Creatinine Ratio Glucose POC Glucose 141 H 62 L 113 H Calcium Lipase 12/11/16 12/11/16 12/11/16 13:22 14:21 18:12 WBC 8.8 RBC 3.81 Hgb 10.8 Hct 32.2 MCV 85 MCH 28 MCHC 34 RDW 16.8 H Plt Count 334 Lymph % (Auto) 23.9 [place] % (Auto) 10.0 H Eos % (Auto) 0.3 Baso % (Auto) 0.5 Lymph # 2.1 [place] # 0.9 H Eos # 0.0 Baso # 0.0 Seg Neutrophils % 65.3 Seg Neutrophils # 5.8 Sodium Potassium Chloride Carbon Dioxide Anion Gap BUN Creatinine Estimated GFR BUN/Creatinine Ratio Glucose POC Glucose 220 H 114 H Calcium Lipase 12/11/16 12/12/16 12/12/16 22:28 04:52 04:52 WBC 6.4 RBC 3.61 L Hgb 10.2 Hct 31.4 MCV 87 MCH 28 MCHC 32 RDW 17.4 H Plt Count 285 Lymph % (Auto) 37.0 H [place] % (Auto) 8.4 H Eos % (Auto) 0.4 Baso % (Auto) 0.5 Lymph # 2.4 [place] # 0.5 Eos # 0.0 Baso # 0.0 Seg Neutrophils % 53.7 Seg Neutrophils # 3.4 Sodium Potassium Chloride Carbon Dioxide Anion Gap BUN Creatinine Estimated GFR BUN/Creatinine Ratio Glucose POC Glucose 377 H Calcium Lipase 120 H 12/12/16 12/12/16 05:26 08:27 WBC RBC Hgb Hct MCV MCH MCHC RDW Plt Count Lymph % (Auto) [place] % (Auto) Eos % (Auto) Baso % (Auto) Lymph # [place] # Eos # Baso # Seg Neutrophils % Seg Neutrophils # Sodium 135 L Potassium 4.3 Chloride 100.7 Carbon Dioxide 21 L Anion Gap 18 BUN 5 L Creatinine 0.5 L Estimated GFR > 60 BUN/Creatinine Ratio 10.00 Glucose 252 H POC Glucose 195 H Calcium 8.5 Lipase <MAGO GRANT - Last Filed: 12/12/16 11:16> Assessment and Plan - Patient Problems (1) Hematemesis Current Visit: Yes Status: Acute Qualifiers: Nausea presence: N Plan to address problem: The patient was seen and examined and care discussed. No evidence of any clinically important blood loss. Stable for outpatient endoscopy. (2) DKA (diabetic ketoacidoses) Current Visit: Yes Status: Acute Qualifiers: Diabetes mellitus type: D Diabetes mellitus complication detail: D (3) Non-compliance Current Visit: No Status: Acute (4) Elevated lipase Current Visit: Yes Status: Acute Plan to address problem: No evidence of clinical pancreatitis. Asymptomatic and tolerating solid food. Objective - Constitutional Vitals: Temp Pulse Resp BP Pulse Ox 98.8 F 100 H 16 100/70 98 12/12/16 04:17 12/12/16 04:17 12/12/16 04:17 12/12/16 04:17 12/12/16 01:07 - Labs CBC & Chem 7: 12/12/16 04:52 12/12/16 08:27 Labs: Laboratory Results - last 24 hr 12/11/16 12/11/16 12/11/16 08:39 12:11 12:42 WBC RBC Hgb Hct MCV MCH MCHC RDW Plt Count Lymph % (Auto) [place] % (Auto) Eos % (Auto) Baso % (Auto) Lymph # [place] # Eos # Baso # Seg Neutrophils % Seg Neutrophils # Sodium Potassium Chloride Carbon Dioxide Anion Gap BUN Creatinine Estimated GFR BUN/Creatinine Ratio Glucose POC Glucose 62 L 113 H Calcium Lipase 430 H 12/11/16 12/11/16 12/11/16 13:22 14:21 18:12 WBC 8.8 RBC 3.81 Hgb 10.8 Hct 32.2 MCV 85 MCH 28 MCHC 34 RDW 16.8 H Plt Count 334 Lymph % (Auto) 23.9 [place] % (Auto) 10.0 H Eos % (Auto) 0.3 Baso % (Auto) 0.5 Lymph # 2.1 [place] # 0.9 H Eos # 0.0 Baso # 0.0 Seg Neutrophils % 65.3 Seg Neutrophils # 5.8 Sodium Potassium Chloride Carbon Dioxide Anion Gap BUN Creatinine Estimated GFR BUN/Creatinine Ratio Glucose POC Glucose 220 H 114 H Calcium Lipase 12/11/16 12/12/16 12/12/16 22:28 04:52 04:52 WBC 6.4 RBC 3.61 L Hgb 10.2 Hct 31.4 MCV 87 MCH 28 MCHC 32 RDW 17.4 H Plt Count 285 Lymph % (Auto) 37.0 H [place] % (Auto) 8.4 H Eos % (Auto) 0.4 Baso % (Auto) 0.5 Lymph # 2.4 [place] # 0.5 Eos # 0.0 Baso # 0.0 Seg Neutrophils % 53.7 Seg Neutrophils # 3.4 Sodium Potassium Chloride Carbon Dioxide Anion Gap BUN Creatinine Estimated GFR BUN/Creatinine Ratio Glucose POC Glucose 377 H Calcium Lipase 120 H 12/12/16 12/12/16 05:26 08:27 WBC RBC Hgb Hct MCV MCH MCHC RDW Plt Count Lymph % (Auto) [place] % (Auto) Eos % (Auto) Baso % (Auto) Lymph # [place] # Eos # Baso # Seg Neutrophils % Seg Neutrophils # Sodium 135 L Potassium 4.3 Chloride 100.7 Carbon Dioxide 21 L Anion Gap 18 BUN 5 L Creatinine 0.5 L Estimated GFR > 60 BUN/Creatinine Ratio 10.00 Glucose 252 H POC Glucose 195 H Calcium 8.5 Lipase
--- NOTE | 2016-12-12 09:34 | Ultrasound Report ---
ULTRASOUND ABDOMEN LIMITED INDICATION: Abdominal pain. COMPARISON: 12/09/2016 CT. FINDINGS: Right upper quadrant sonography suggests diffuse hepatic coarsening, slightly echogenic. Grossly preserved contours. No definite focal suspicious lesions or biliary dilatation. Liver appears somewhat prominent sonographically, though its full extent not as well appreciated as on the prior CT where craniocaudal extent estimated at 28.5 cm while the left hepatic lobe wraps around the spleen in the left upper quadrant. No gallstones or pericholecystic fluid. Gallbladder wall thickness is 2.7 mm. Common bile duct is 5.3 mm. Imaged nonaneurysmal abdominal aorta and IVC within normal limits. Pancreas not well seen, though imaged portions grossly unremarkable. Normal right kidney estimated at 12.8 x 5.4 x 6.1 cm with cortical thickness of 1.5 cm. CONCLUSION: Coarse, moderately enlarged liver without other acute right upper quadrant sonographic abnormality, as described. Please correlate. Thank you for the opportunity to participate in this patient's care.
[2016-12-12] MEDS: PROTONIX IV SCH (10:31)
--- NOTE | 2016-12-12 10:40 | Discharge Summary ---
Providers - Providers Date of Admission: 12/09/16 23:30 Date of discharge: 12/12/16 Attending physician: MIKE SUTTON 12/10/16 00:18 Consult to Physician [CONS] Routine Consulting Provider: ERICA ZAYAS Reason For Exam: CC Place consult to:: CC ARCHIVES TECHNICIAN Notified:: stenographer secretary pl call Was contact made?: Yes If yes, spoke with:: Ranjan DAY 12/11/16 13:54 Consult to Physician [CONS] Routine Consulting Provider: MAGO GRANT Reason For Exam: pancreatitis Place consult to:: GI Notified:: Y If yes, spoke with:: SHERI Time called:: 14:25 Primary care physician: IRON WORKER Hospitalization Reason for admission: DKA Condition: Fair Hospital course: The patient is a 21 year old female who has had type I diabetes mellitus since the age of 5. The patient has been non compliant according to her father for most of this time and an insulin pump was place and removed for this reason. She apparently stopped taking insulin 5 days ago and was admitted with DKA. Patient was started on insulin drip and slowly her anion gap closed and DKA resolved. She was then later transitioned to long-acting insulin and back to her home regimen. The patient also had nausea and vomiting prior to admission and vomited some coffee colored material once. She has not had a BM in 4 days. Mild elevation of her lipase at 422 was noted on admission, however she denied any abdominal pain. There is no history of ETOH or tobacco use and she has no prior history of pancreatitis. CT scan reveals some inflammation at the tail of the pancreas. However, patient did not appear to have clinical pancreatitis. Patient was seen by GI consultation. Recommendations were for abdominal ultrasound. The ultrasound was found to be essentially negative. Lipase returned to a near-normal range 120. Patient tolerated her diet well and was felt to have received maximal hospital benefit. Therefore, patient will be discharged home and will follow up with GI as an outpatient for possible upper endoscopy. Dedicated discharge time 32 minutes. Disposition: - TO HOME OR SELFCARE Time spent for discharge: 32 - Discharge Diagnoses (1) Acute pancreatitis Status: Acute Qualifiers: Pancreatitis type: unspecified pancreatitis type Acute pancreatitis complication: no infection or necrosis Qualified Code(s): K85.90 - Acute pancreatitis without necrosis or infection, unspecified (2) DKA (diabetic ketoacidoses) Status: Acute Qualifiers: Diabetes mellitus type: D Diabetes mellitus complication detail: D (3) Abdominal pain Status: Acute Qualifiers: Abdominal location: A Core Measure Documentation - Palliative Care Palliative Care/ Comfort Measures: Not Applicable - Core Measures Any of the following diagnoses?: none Exam - Constitutional Vitals: Temp Pulse Resp BP Pulse Ox 98.8 F 100 H 16 100/70 98 12/12/16 04:12/12/16 04:12/12/16 04:12/12/16 04:12/12/16 01:07 General appearance: Present: no acute distress, well-nourished - EENT Eyes: Present: PERRL ENT: hearing intact, clear oral mucosa - Neck Neck: Present: supple, normal ROM - Respiratory Respiratory effort: normal Respiratory: bilateral: CTA - Cardiovascular Heart Sounds: Present: S1 & S2. Absent: rub, click - Extremities Extremities: pulses symmetrical, No edema Peripheral Pulses: within normal limits - Abdominal General gastrointestinal: Present: soft, non-tender, non-distended, normal bowel sounds Female genitourinary: Present: normal - Integumentary Integumentary: Present: clear, warm, dry - Musculoskeletal Musculoskeletal: gait normal, strength equal bilaterally - Psychiatric Psychiatric: appropriate mood/affect, intact judgment & insight - Neurologic Neurologic: CNII-XII intact, moves all extremities Plan Activity: no restrictions Weight Bearing Status: Full Weight Bearing Follow up with: ALICE TALLEY MD [Primary Care Provider] - 3-5 Days MAGO GRANT MD [Staff Physician] - 7 Days Prescriptions: Gabapentin [Neurontin] 100 mg PO Q8HR #90 capsule MDD 300mg Insulin NPH/Regular [NovoLIN 70/30] 30 unit SQ BID #60 units MDD 60 Pantoprazole [Protonix] 40 mg PO QDAY #30 tablet
[2016-12-12 12:19] VITALS: BP 97/64
[2016-12-13] MEDS ORDERED: PROTONIX PO SCH (10:00)
== END 2016-12-12 14:45 | disposition home or self-care (01) | DRG 637 ==
LOC: ED 19:15 → CC1 23:30 → 3A 12-11 16:50
PROVIDERS: ADMIT Internal Medicine; ATTEND Hospitalist
DX: E10.10 Type 1 diabetes mellitus with ketoacidosis without coma (principal); K85.80 Other acute pancreatitis without necrosis or infection; G93.41 Metabolic encephalopathy; K92.0 Hematemesis; D72.829 Elevated white blood cell count, unspecified; Z88.0 Allergy status to penicillin; Z88.2 Allergy status to sulfonamides; Z88.8 Allergy status to other drugs, medicaments and biological substances; Z79.4 Long term (current) use of insulin; Z91.14 Patient's other noncompliance with medication regimen
CPT/HCPCS: 36415; 74177; 76705; 80048; 80074; 80307; 80320; 81001; 81025; 82140; 82550; 82805; 82962; 83036; 83690; 83735; 84100; 84443; 84484; 85014; 85018; 85025; 93005; 93010; C9113; G0480; J1815; J2270; J2405; J2765; J7030; Q9967

== ENCOUNTER 2016-12-15 18:03 | Emergency (ER) | payer SELFPAY ==
[2016-12-15] MEDS ORDERED: NACL 0.9% 1000 ML 1,000 ML IV ONE (18:21)
[2016-12-15] MEDS ORDERED: ZOFRAN ONE (18:51)
[2016-12-15 19:30] LABS: Basophils % (Auto) 0.4 % (0.0-1.8); Eosinophils % (Auto) 0.4 % (0.0-4.3); Hematocrit 41.6 % (30.3-42.9); Hemoglobin 13.4 gm/dl (10.1-14.3); Mean Corpuscular HGB Conc 32 % (30-34); Mean Corpuscular Hemoglobin 28 pg (28-32); Mean Corpuscular Volume 87 fl (79-97); Platelet Count 425 K/mm3 (140-440); Red Blood Count 4.77 M/mm3 (3.65-5.03); Red Cell Distribution Width 16.6 % (13.2-15.2); White Blood Count 8.6 K/mm3 (4.5-11.0)
[2016-12-15 19:34] LABS: INR 1.04 (0.87-1.13)
[2016-12-15 19:38] LABS: Alanine Aminotransferase 30 units/L (7-56); Blood Urea Nitrogen 6 mg/dL (7-17); Calcium 9.7 mg/dL (8.4-10.2); Carbon Dioxide 21 mmol/L (22-30); Glucose 93 mg/dL (65-100)
[2016-12-15 19:39] VITALS: BP 126/76
[2016-12-15 19:39] LABS: Albumin 3.8 g/dL (3.9-5); Albumin/Globulin Ratio 1.1 %; Alkaline Phosphatase 177 units/L (35-129); Anion Gap 30 mmol/L; Lipase 53 units/L (13-60); Potassium 3.7 mmol/L (3.6-5.0); Sodium 141 mmol/L (137-145); Total Protein 7.3 g/dL (6.3-8.2)
[2016-12-15 19:40] LABS: Partial Thromboplastin Time < 20.0 Sec. (24.2-36.6)
[2016-12-15] MEDS ORDERED: ZOFRAN ODT PO ONE (20:02)
--- NOTE | 2016-12-15 20:19 | Emergency Department Report ---
ED General Adult HPI - General Chief complaint: GI Bleed Stated complaint: throwing up blood Time Seen by Provider: 12/15/16 19:01 Source: patient Mode of arrival: Ambulatory Limitations: No Limitations - History of Present Illness Initial comments: Vision is a 21-year-old female past medical history of diabetes who presents for nausea and vomiting that occurred on today. Patient said she was vomiting and she has epigastric abdominal pain. It is an 8 out of 10 vomiting makes it worse nothing makes it better. She states that she came in today because she was vomiting and she noticed some blood streaks in the vomit. This was similar to what happened last time on the third of this month when she was admitted for about 5 days for diabetic ketoacidosis. Patient states that she's been compliant with her insulin. Patient's blood sugar is 98. She states that her abdominal pain as a burning type of pain doesn't radiate anywhere. Patient also states that she has not been able to keep anything down. Severity scale (0 -10): 6 - Related Data Home Medications Medication Instructions Recorded Confirmed Last Taken Insulin Aspart [NovoLOG 100 0 units .ROUTE AC 03/04/15 12/11/16 12/07/16 UNITS/ML VIAL] Previous Rx's Medication Instructions Recorded Last Taken Type Gabapentin [Neurontin] 100 mg PO Q8HR #90 capsule MDD 12/12/16 Unknown Rx 300mg Insulin NPH/Regular [NovoLIN 70/30] 30 unit SQ BID #60 units MDD 60 12/12/16 Unknown Rx Pantoprazole [Protonix] 40 mg PO QDAY #30 tablet 12/12/16 Unknown Rx Promethazine [Phenergan TAB] 25 mg PO Q6HR PRN #20 tab 12/15/16 Unknown Rx Allergies Allergy/AdvReac Type Severity Reaction Status Date / Time Penicillins Allergy Anaphylaxis Verified 12/15/16 18:15 sulfamethoxazole Allergy Hives Verified 12/15/16 18:15 [From Bactrim] trimethoprim [From Bactrim] Allergy Hives Verified 12/15/16 18:15 ED Review of Systems ROS: Stated complaint: throwing up blood Other details as noted in HPI Constitutional: denies: chills, fever Eyes: denies: eye pain, eye discharge, vision change ENT: denies: ear pain, throat pain Respiratory: denies: cough, shortness of breath, wheezing Cardiovascular: denies: chest pain, palpitations Endocrine: no symptoms reported Gastrointestinal: abdominal pain, nausea, vomiting. denies: diarrhea Genitourinary: denies: urgency, dysuria, discharge Musculoskeletal: denies: back pain, joint swelling, arthralgia Skin: denies: rash, lesions Neurological: denies: headache, weakness, paresthesias Psychiatric: denies: anxiety, depression Hematological/Lymphatic: denies: easy bleeding, easy bruising ED Past Medical Hx - Past Medical History Hx Congestive Heart Failure: No Hx Diabetes: Yes Hx Asthma: No Hx COPD: No Hx HIV: No Additional medical history: HX of MRSA. NEUROPATHY? - Social History Smoking Status: Never Smoker Substance Use Type: None - Medications Home Medications: Home Medications Medication Instructions Recorded Confirmed Last Taken Type Insulin Aspart [NovoLOG 100 0 units .ROUTE AC 03/04/15 12/11/16 12/07/16 History UNITS/ML VIAL] Gabapentin [Neurontin] 100 mg PO Q8HR #90 capsule MDD 12/12/16 Unknown Rx 300mg Insulin NPH/Regular [NovoLIN 70/30] 30 unit SQ BID #60 units MDD 60 12/12/16 Unknown Rx Pantoprazole [Protonix] 40 mg PO QDAY #30 tablet 12/12/16 Unknown Rx Promethazine [Phenergan TAB] 25 mg PO Q6HR PRN #20 tab 12/15/16 Unknown Rx ED Physical Exam - General Limitations: No Limitations General appearance: alert, in no apparent distress - Head Head exam: Present: atraumatic, normocephalic - Eye Eye exam: Present: normal appearance - ENT ENT exam: Present: mucous membranes moist - Neck Neck exam: Present: normal inspection - Respiratory Respiratory exam: Present: normal lung sounds bilaterally. Absent: respiratory distress - Cardiovascular Cardiovascular Exam: Present: regular rate, normal rhythm. Absent: systolic murmur, diastolic murmur, rubs, gallop - GI/Abdominal GI/Abdominal exam: Present: soft, normal bowel sounds - Extremities Exam Extremities exam: Present: normal inspection - Back Exam Back exam: Present: normal inspection - Neurological Exam Neurological exam: Present: alert, oriented X3 - Psychiatric Psychiatric exam: Present: normal affect, normal mood - Skin Skin exam: Present: warm, dry, intact, normal color. Absent: rash ED Course Vital Signs 12/15/16 12/15/16 12/15/16 18:15 19:34 20:41 Temperature 99.7 F H 98.7 F Pulse Rate 95 H 93 H Respiratory 26 H 22 20 Rate Blood Pressure 127/90 Blood Pressure 126/76 [Left] O2 Sat by Pulse 100 100 Oximetry - Reevaluation(s) Reevaluation #1: 12/15/16 22:54 She was feeling better after IV pain medicine and IV antiemetic medication. I will send patient home with [facility] and pt agrees with plan. ED Medical Decision Making - Lab Data Result diagrams: 12/15/16 19:07 12/15/16 18:51 Lab Results 12/15/16 12/15/16 12/15/16 Range/Units 18:24 18:51 18:51 WBC (4.5-11.0) K/mm3 RBC (3.65-5.03) M/mm3 Hgb (10.1-14.3) gm/dl Hct (30.3-42.9) % MCV (79-97) fl MCH (28-32) pg MCHC (30-34) % RDW (13.2-15.2) % Plt Count (140-440) K/mm3 Lymph % (Auto) (13.4-35.0) % [place] % (Auto) (0.0-7.3) % Eos % (Auto) (0.0-4.3) % Baso % (Auto) (0.0-1.8) % Lymph # (1.2-5.4) K/mm3 [place] # (0.0-0.8) K/mm3 Eos # (0.0-0.4) K/mm3 Baso # (0.0-0.1) K/mm3 Seg Neutrophils % (40.0-70.0) % Seg Neutrophils # (1.8-7.7) K/mm3 PT 13.5 (12.2-14.9) Sec. INR 1.04 (0.87-1.13) APTT < 20.0 L (24.2-36.6) Sec. Sodium 141 (137-145) mmol/L Potassium 3.7 (3.6-5.0) mmol/L Chloride 94.0 L (98-107) mmol/L Carbon Dioxide 21 L (22-30) mmol/L Anion Gap 30 mmol/L BUN 6 L (7-17) mg/dL Creatinine 0.6 L (0.7-1.2) mg/dL Estimated GFR > 60 ml/min BUN/Creatinine Ratio 10.00 % Glucose 93 (65-100) mg/dL POC Glucose 112 H (70-105) Calcium 9.7 (8.4-10.2) mg/dL Total Bilirubin 0.30 (0.1-1.2) mg/dL AST 34 (5-40) units/L ALT 30 (7-56) units/L Alkaline Phosphatase 177 H (35-129) units/L Total Protein 7.3 (6.3-8.2) g/dL Albumin 3.8 L (3.9-5) g/dL Albumin/Globulin Ratio 1.1 % Lipase 53 (13-60) units/L HCG, Qual (Negative) Blood Type Antibody Screen 12/15/16 12/15/16 12/15/16 Range/Units 19:07 19:07 19:07 WBC 8.6 (4.5-11.0) K/mm3 RBC 4.77 (3.65-5.03) M/mm3 Hgb 13.4 (10.1-14.3) gm/dl Hct 41.6 (30.3-42.9) % MCV 87 (79-97) fl MCH 28 (28-32) pg MCHC 32 (30-34) % RDW 16.6 H (13.2-15.2) % Plt Count 425 (140-440) K/mm3 Lymph % (Auto) 29.7 (13.4-35.0) % [place] % (Auto) 9.1 H (0.0-7.3) % Eos % (Auto) 0.4 (0.0-4.3) % Baso % (Auto) 0.4 (0.0-1.8) % Lymph # 2.5 (1.2-5.4) K/mm3 [place] # 0.8 (0.0-0.8) K/mm3 Eos # 0.0 (0.0-0.4) K/mm3 Baso # 0.0 (0.0-0.1) K/mm3 Seg Neutrophils % 60.4 (40.0-70.0) % Seg Neutrophils # 5.2 (1.8-7.7) K/mm3 PT (12.2-14.9) Sec. INR (0.87-1.13) APTT (24.2-36.6) Sec. Sodium (137-145) mmol/L Potassium (3.6-5.0) mmol/L Chloride (98-107) mmol/L Carbon Dioxide (22-30) mmol/L Anion Gap mmol/L BUN (7-17) mg/dL Creatinine (0.7-1.2) mg/dL Estimated GFR ml/min BUN/Creatinine Ratio % Glucose (65-100) mg/dL POC Glucose (70-105) Calcium (8.4-10.2) mg/dL Total Bilirubin (0.1-1.2) mg/dL AST (5-40) units/L ALT (7-56) units/L Alkaline Phosphatase (35-129) units/L Total Protein (6.3-8.2) g/dL Albumin (3.9-5) g/dL Albumin/Globulin Ratio % Lipase (13-60) units/L HCG, Qual Negative (Negative) Blood Type AB POSITIVE Antibody Screen Negative - EKG Data -: EKG Interpreted by [place] - EKG Data 12/15/16 22:55 EKG shows normal sinus rhythm no ST segment elevation or T-wave inversion possible left atrial enlargement and normal axis. - Medical Decision Making Medical diagnosis: Pancreatitis Differential diagnosis: DKA, UTI, hypokalemia, viral syndrome I will get CBC, UA, CMP, IV fluids, IV pain medication, lipase and I will give patient a by mouth challenge Patient's lab work is unremarkable I will sent patient home with follow-up with a GI doctor patient agrees to plan additional verbal discharge instructions were given. Return precautions, to the ED were given. Critical care attestation.: If time is entered above; I have spent that time in minutes in the direct care of this critically ill patient, excluding procedure time. ED Disposition Clinical Impression: Nausea and vomiting in adult, Epigastric abdominal pain, Lactic acidosis, Diabetes 1.5, managed as type 1 Hematemesis Qualifiers: Nausea presence: with nausea Qualified Code(s): K92.0 - Hematemesis; R11.0 - Nausea Disposition: - TO HOME OR SELFCARE Is pt being admited?: No Does the pt Need Aspirin: No Condition: Stable Instructions: Diabetes Mellitus Type 2 in Adults (ED) Prescriptions: Promethazine [Phenergan TAB] 25 mg PO Q6HR PRN #20 tab PRN Reason: Nausea Referrals: PRIMARY CARE, [Primary Care Provider] - 3-5 Days Forms: Accompanied Note
[2016-12-15] MEDS ORDERED: MORPHINE IV ONE (20:26)
[2016-12-15] MEDS ORDERED: REGLAN IV ONE (20:27)
[2016-12-15] MEDS ORDERED: BENADRYL IV ONE (20:27)
[2016-12-15] MEDS ORDERED: PHENERGAN PO ONE (22:30)
== END 2016-12-15 23:20 | disposition home or self-care (01) ==
LOC: ED 18:03
DX: K92.0 Hematemesis (principal); E10.9 Type 1 diabetes mellitus without complications; R10.13 Epigastric pain; Z79.4 Long term (current) use of insulin; Z88.1 Allergy status to other antibiotic agents; Z88.8 Allergy status to other drugs, medicaments and biological substances
CPT/HCPCS: 36415; 80053; 82962; 83690; 84703; 85025; 85610; 85730; 86850; 86900; 86901; 93005; 93010; 96361; 96374; 96375; 99284; J1200; J2270; J2405; J2765; J7030; Q0162; Q0169

== ENCOUNTER 2017-03-03 18:40 | Inpatient (IN) | payer OTHER ==
[2017-03-03] MEDS ORDERED: REGLAN IV ONE (21:03)
[2017-03-03] MEDS ORDERED: ZOFRAN IV ONE (21:03)
[2017-03-03] MEDS ORDERED: BENADRYL IV ONE (21:03)
[2017-03-03] MEDS ORDERED: NACL 0.9% 1000 ML 1,000 ML IV ONE ×2 (21:03→21:14)
[2017-03-03] MEDS ORDERED: DILAUDID ONE (21:13)
[2017-03-03] MEDS ORDERED: DILAUDID IV ONE (21:13)
--- NOTE | 2017-03-03 21:18 | Emergency Department Report ---
ED N/V/D HPI - General Stated complaint: DKA Time Seen by Provider: 03/03/17 20:51 Source: patient, old records reviewed Mode of arrival: Ambulatory Limitations: No Limitations - History of Present Illness Initial comments: 21-year-old female with a past medical history of diabetes presents to the hospital complaints of DKA 2-3 days. Patient states her sugar has been poorly controlled. She admits to noncompliance with her insulin but does not divulge why. Patient is in acute distress due to nausea, vomiting, and sternal chest pain which she describes as a "knife in her chest". This pain is constant, worse with palpation and movement. Patient also complains of generalized abdominal pain. Denies diarrhea, dysuria, or fever. History of DKA in the past. No previous abdominal surgeries. Glucose was greater than 500 prior to arrival. Patient took insulin prior to EMS transportation to the hospital - Related Data Home Medications Medication Instructions Recorded Confirmed Last Taken Insulin Aspart [NovoLOG 100 0 units .ROUTE AC 03/04/15 02/02/17 12/07/16 UNITS/ML VIAL] Previous Rx's Medication Instructions Recorded Last Taken Type Insulin NPH/Regular [NovoLIN 70/30] 30 unit SQ BID #60 units MDD 60 12/12/16 Unknown Rx Allergies Allergy/AdvReac Type Severity Reaction Status Date / Time Penicillins Allergy Anaphylaxis Verified 12/15/16 18:15 sulfamethoxazole Allergy Hives Verified 12/15/16 18:15 [From Bactrim] trimethoprim [From Bactrim] Allergy Hives Verified 12/15/16 18:15 ED Review of Systems ROS: Stated complaint: DKA Other details as noted in HPI Comment: All other systems reviewed and negative Other: Constitutional: No fevers chills Eyes: No eye pain visual changes ENT: No ear pain or throat pain Neck: Denies pain Respiratory: Denies cough wheezing shortness of breath Cardiovascular: Denies palpitations, syncopet GI: As per HPI : Denies dysuria Musculoskeletal: Denies back pain Skin: Denies rash, lesions, erythema Neurologic: Denies headache, numbness, weakness Psychiatric: Denies suicidal ideation, hallucinations ED Past Medical Hx - Past Medical History Hx Congestive Heart Failure: No Hx Diabetes: Yes (Type 1) Hx Asthma: No Hx COPD: No Hx HIV: No Additional medical history: HX of MRSA. NEUROPATHY?,DKA,DM TYPE I - Social History Smoking Status: Never Smoker - Medications Home Medications: Home Medications Medication Instructions Recorded Confirmed Last Taken Type Insulin Aspart [NovoLOG 100 0 units .ROUTE AC 03/04/15 02/02/17 12/07/16 History UNITS/ML VIAL] Insulin NPH/Regular [NovoLIN 70/30] 30 unit SQ BID #60 units MDD 60 12/12/16 Unknown Rx ED Physical Exam - Other Other exam information: General: Distress secondary to pain Head exam: Atraumatic, normocephalic Eyes exam: Normal appearance ENT: Dry mucous membranes Neck exam: Normal inspection, full range of motion, no meningismus nontender Respiratory exam: Clear to auscultation bilateral, no wheezes, rales, crackles Cardiovascular: Tachycardia, normal heart sounds. Reproducible sternal chest wall tenderness Abdomen: Soft, nondistended, generalized abdominal tenderness, with normal bowel sounds, no rebound, or guarding Extremity: Full range of motion normal inspection no deformity Back: Normal Inspection, full range of motion, no tenderness Neurologic: Alert, oriented x3, cranial nerves intact, no motor or sensory deficit Psychiatric: Tearful secondary to pain Skin: Warm, dry, intact ED Course Vital Signs 03/03/17 03/03/17 21:12 21:20 Temperature 98.5 F Pulse Rate 109 H Respiratory 24 Rate Blood Pressure 144/94 O2 Sat by Pulse 100 Oximetry - Reevaluation(s) Reevaluation #1: 03/03/17 21:17 Dilaudid 0.5 mg, Zofran, Reglan, Benadryl, and normal saline initiated in the ED. Awaiting lab draw. Initial glucose 85 ED Medical Decision Making - Lab Data Result diagrams: 03/03/17 21:33 03/03/17 21:33 Lab Results 03/03/17 03/03/17 03/03/17 Range/Units 20:41 21:33 21:33 WBC 8.3 (4.5-11.0) K/mm3 RBC 4.63 (3.65-5.03) M/mm3 Hgb 12.8 (10.1-14.3) gm/dl Hct 39.8 (30.3-42.9) % MCV 86 (79-97) fl MCH 28 (28-32) pg MCHC 32 (30-34) % RDW 15.6 H (13.2-15.2) % Plt Count 445 H (140-440) K/mm3 Lymph % (Auto) 10.2 L (13.4-35.0) % [place] % (Auto) 3.9 (0.0-7.3) % Eos % (Auto) 0.0 (0.0-4.3) % Baso % (Auto) 0.5 (0.0-1.8) % Lymph # 0.8 L (1.2-5.4) K/mm3 [place] # 0.3 (0.0-0.8) K/mm3 Eos # 0.0 (0.0-0.4) K/mm3 Baso # 0.0 (0.0-0.1) K/mm3 Seg Neutrophils % 85.4 H (40.0-70.0) % Seg Neutrophils # 7.1 (1.8-7.7) K/mm3 PT 13.1 (12.2-14.9) Sec. INR 0.94 (0.87-1.13) VBG pH (7.320-7.420) Sodium (137-145) mmol/L Potassium (3.6-5.0) mmol/L Chloride (98-107) mmol/L Carbon Dioxide (22-30) mmol/L Anion Gap mmol/L BUN (7-17) mg/dL Creatinine (0.7-1.2) mg/dL Estimated GFR ml/min BUN/Creatinine Ratio % Glucose (65-100) mg/dL POC Glucose 85 (70-105) Calcium (8.4-10.2) mg/dL Magnesium (1.7-2.3) mg/dL Total Bilirubin (0.1-1.2) mg/dL AST (5-40) units/L ALT (7-56) units/L Alkaline Phosphatase (35-129) units/L Total Creatine Kinase (30-135) units/L CK-MB (CK-2) (0.0-4.0) ng/mL CK-MB (CK-2) Rel Index (0-4) Troponin T (0.00-0.029) ng/mL Total Protein (6.3-8.2) g/dL Albumin (3.9-5) g/dL Albumin/Globulin Ratio % Lipase (13-60) units/L HCG, Qual (Negative) Urine Color (Yellow) Urine Turbidity (Clear) Urine pH (5.0-7.0) Ur Specific [place] (1.003-1.030) Urine Protein (Negative) mg/dL Urine Glucose (UA) (Negative) mg/dL Urine Ketones (Negative) mg/dL Urine Blood (Negative) Urine Nitrite (Negative) Ur Reducing Substances Urine Bilirubin (Negative) Urine Ictotest Urine Urobilinogen (<2.0) mg/dL Ur Leukocyte Esterase (Negative) Urine WBC (Auto) (0.0-6.0) /HPF Urine RBC (Auto) (0.0-6.0) /HPF U Epithel Cells (Auto) (0-13.0) /HPF Hyaline Casts /LPF Urine Mucus /HPF 03/03/17 03/03/17 03/03/17 Range/Units 21:33 21:33 21:33 WBC (4.5-11.0) K/mm3 RBC (3.65-5.03) M/mm3 Hgb (10.1-14.3) gm/dl Hct (30.3-42.9) % MCV (79-97) fl MCH (28-32) pg MCHC (30-34) % RDW (13.2-15.2) % Plt Count (140-440) K/mm3 Lymph % (Auto) (13.4-35.0) % [place] % (Auto) (0.0-7.3) % Eos % (Auto) (0.0-4.3) % Baso % (Auto) (0.0-1.8) % Lymph # (1.2-5.4) K/mm3 [place] # (0.0-0.8) K/mm3 Eos # (0.0-0.4) K/mm3 Baso # (0.0-0.1) K/mm3 Seg Neutrophils % (40.0-70.0) % Seg Neutrophils # (1.8-7.7) K/mm3 PT (12.2-14.9) Sec. INR (0.87-1.13) VBG pH (7.320-7.420) Sodium 140 (137-145) mmol/L Potassium 3.5 L (3.6-5.0) mmol/L Chloride 95.7 L (98-107) mmol/L Carbon Dioxide 20 L (22-30) mmol/L Anion Gap 28 mmol/L BUN 16 (7-17) mg/dL Creatinine 0.8 (0.7-1.2) mg/dL Estimated GFR > 60 ml/min BUN/Creatinine Ratio 20 % Glucose 95 (65-100) mg/dL POC Glucose (70-105) Calcium 9.1 (8.4-10.2) mg/dL Magnesium (1.7-2.3) mg/dL Total Bilirubin 0.20 (0.1-1.2) mg/dL AST 29 (5-40) units/L ALT 19 (7-56) units/L Alkaline Phosphatase 132 H (35-129) units/L Total Creatine Kinase 33 (30-135) units/L CK-MB (CK-2) 1.1 (0.0-4.0) ng/mL CK-MB (CK-2) Rel Index 3.3 (0-4) Troponin T < 0.010 (0.00-0.029) ng/mL Total Protein 7.0 (6.3-8.2) g/dL Albumin 3.5 L (3.9-5) g/dL Albumin/Globulin Ratio 1.0 % Lipase 12 L (13-60) units/L HCG, Qual Negative (Negative) Urine Color (Yellow) Urine Turbidity (Clear) Urine pH (5.0-7.0) Ur Specific [place] (1.003-1.030) Urine Protein (Negative) mg/dL Urine Glucose (UA) (Negative) mg/dL Urine Ketones (Negative) mg/dL Urine Blood (Negative) Urine Nitrite (Negative) Ur Reducing Substances Urine Bilirubin (Negative) Urine Ictotest Urine Urobilinogen (<2.0) mg/dL Ur Leukocyte Esterase (Negative) Urine WBC (Auto) (0.0-6.0) /HPF Urine RBC (Auto) (0.0-6.0) /HPF U Epithel Cells (Auto) (0-13.0) /HPF Hyaline Casts /LPF Urine Mucus /HPF 03/03/17 03/03/17 03/03/17 Range/Units 21:33 21:33 22:41 WBC (4.5-11.0) K/mm3 RBC (3.65-5.03) M/mm3 Hgb (10.1-14.3) gm/dl Hct (30.3-42.9) % MCV (79-97) fl MCH (28-32) pg MCHC (30-34) % RDW (13.2-15.2) % Plt Count (140-440) K/mm3 Lymph % (Auto) (13.4-35.0) % [place] % (Auto) (0.0-7.3) % Eos % (Auto) (0.0-4.3) % Baso % (Auto) (0.0-1.8) % Lymph # (1.2-5.4) K/mm3 [place] # (0.0-0.8) K/mm3 Eos # (0.0-0.4) K/mm3 Baso # (0.0-0.1) K/mm3 Seg Neutrophils % (40.0-70.0) % Seg Neutrophils # (1.8-7.7) K/mm3 PT (12.2-14.9) Sec. INR (0.87-1.13) VBG pH 7.365 (7.320-7.420) Sodium (137-145) mmol/L Potassium (3.6-5.0) mmol/L Chloride (98-107) mmol/L Carbon Dioxide (22-30) mmol/L Anion Gap mmol/L BUN (7-17) mg/dL Creatinine (0.7-1.2) mg/dL Estimated GFR ml/min BUN/Creatinine Ratio % Glucose (65-100) mg/dL POC Glucose (70-105) Calcium (8.4-10.2) mg/dL Magnesium 1.90 (1.7-2.3) mg/dL Total Bilirubin (0.1-1.2) mg/dL AST (5-40) units/L ALT (7-56) units/L Alkaline Phosphatase (35-129) units/L Total Creatine Kinase (30-135) units/L CK-MB (CK-2) (0.0-4.0) ng/mL CK-MB (CK-2) Rel Index (0-4) Troponin T (0.00-0.029) ng/mL Total Protein (6.3-8.2) g/dL Albumin (3.9-5) g/dL Albumin/Globulin Ratio % Lipase (13-60) units/L HCG, Qual (Negative) Urine Color Yellow (Yellow) Urine Turbidity Clear (Clear) Urine pH 5.0 (5.0-7.0) Ur Specific [place] 1.021 (1.003-1.030) Urine Protein 30 mg/dl (Negative) mg/dL Urine Glucose (UA) >=500 (Negative) mg/dL Urine Ketones 80 (Negative) mg/dL Urine Blood Neg (Negative) Urine Nitrite Neg (Negative) Ur Reducing Substances Not Reportable Urine Bilirubin Neg (Negative) Urine Ictotest Not Reportable Urine Urobilinogen < 2.0 (<2.0) mg/dL Ur Leukocyte Esterase Neg (Negative) Urine WBC (Auto) 1.0 (0.0-6.0) /HPF Urine RBC (Auto) 1.0 (0.0-6.0) /HPF U Epithel Cells (Auto) 4.0 (0-13.0) /HPF Hyaline Casts 4 /LPF Urine Mucus Few /HPF 03/04/17 03/04/17 Range/Units 00:29 00:35 WBC (4.5-11.0) K/mm3 RBC (3.65-5.03) M/mm3 Hgb (10.1-14.3) gm/dl Hct (30.3-42.9) % MCV (79-97) fl MCH (28-32) pg MCHC (30-34) % RDW (13.2-15.2) % Plt Count (140-440) K/mm3 Lymph % (Auto) (13.4-35.0) % [place] % (Auto) (0.0-7.3) % Eos % (Auto) (0.0-4.3) % Baso % (Auto) (0.0-1.8) % Lymph # (1.2-5.4) K/mm3 [place] # (0.0-0.8) K/mm3 Eos # (0.0-0.4) K/mm3 Baso # (0.0-0.1) K/mm3 Seg Neutrophils % (40.0-70.0) % Seg Neutrophils # (1.8-7.7) K/mm3 PT (12.2-14.9) Sec. INR (0.87-1.13) VBG pH (7.320-7.420) Sodium (137-145) mmol/L Potassium (3.6-5.0) mmol/L Chloride (98-107) mmol/L Carbon Dioxide (22-30) mmol/L Anion Gap mmol/L BUN (7-17) mg/dL Creatinine (0.7-1.2) mg/dL Estimated GFR ml/min BUN/Creatinine Ratio % Glucose (65-100) mg/dL POC Glucose 224 H (70-105) Calcium (8.4-10.2) mg/dL Magnesium (1.7-2.3) mg/dL Total Bilirubin (0.1-1.2) mg/dL AST (5-40) units/L ALT (7-56) units/L Alkaline Phosphatase (35-129) units/L Total Creatine Kinase (30-135) units/L CK-MB (CK-2) (0.0-4.0) ng/mL CK-MB (CK-2) Rel Index (0-4) Troponin T < 0.010 (0.00-0.029) ng/mL Total Protein (6.3-8.2) g/dL Albumin (3.9-5) g/dL Albumin/Globulin Ratio % Lipase (13-60) units/L HCG, Qual (Negative) Urine Color (Yellow) Urine Turbidity (Clear) Urine pH (5.0-7.0) Ur Specific [place] (1.003-1.030) Urine Protein (Negative) mg/dL Urine Glucose (UA) (Negative) mg/dL Urine Ketones (Negative) mg/dL Urine Blood (Negative) Urine Nitrite (Negative) Ur Reducing Substances Urine Bilirubin (Negative) Urine Ictotest Urine Urobilinogen (<2.0) mg/dL Ur Leukocyte Esterase (Negative) Urine WBC (Auto) (0.0-6.0) /HPF Urine RBC (Auto) (0.0-6.0) /HPF U Epithel Cells (Auto) (0-13.0) /HPF Hyaline Casts /LPF Urine Mucus /HPF - EKG Data -: EKG Interpreted by Or EKG shows normal: sinus rhythm, axis (44), QRS complexes (90), ST-T waves (no stemi/t inv) Rate: tachycardia (103) - EKG Data When compared to previous EKG there are: no significant change - Radiology Data Radiology results: report reviewed CT abdomen and pelvis IV contrast: Inflammatory changes adjacent to the tip of the pancreas suspect acute pancreatitis. Thickened appearance of the distal esophagus likely reflecting edema and/or esophagitis - Medical Decision Making Symptoms improved after ED treatment but recurrent nausea. glucose trending upward and treated with insulin. We'll admit to the hospital due to persistent GI symptoms and ct abnormalities. + ketosis, with normal wong ph - Differential Diagnosis DKA, pancreatitis, NV, intra-abdominal infection, GERD, costochondr Critical Care Time: No Critical care attestation.: If time is entered above; I have spent that time in minutes in the direct care of this critically ill patient, excluding procedure time. ED Disposition Clinical Impression: Non-compliance, Hyperglycemia, Insulin dependent diabetes mellitus, Esophagitis , Acute inflammation of the pancreas, Ketosis Disposition: OP ADMIT IP TO THIS HOSP Is pt being admited?: Yes Condition: Stable Time of Disposition: 01:59 (Dr Taylor/hosp)
[2017-03-03 21:48] LABS: Basophils % (Auto) 0.5 % (0.0-1.8); Hematocrit 39.8 % (30.3-42.9); Hemoglobin 12.8 gm/dl (10.1-14.3); Mean Corpuscular HGB Conc 32 % (30-34); Mean Corpuscular Hemoglobin 28 pg (28-32); Mean Corpuscular Volume 86 fl (79-97); Platelet Count 445 K/mm3 (140-440); Red Blood Count 4.63 M/mm3 (3.65-5.03); Red Cell Distribution Width 15.6 % (13.2-15.2); White Blood Count 8.3 K/mm3 (4.5-11.0)
[2017-03-03 21:59] LABS: INR 0.94 (0.87-1.13)
[2017-03-03 22:12] LABS: Creatine Kinase MB 1.1 ng/mL (0.0-4.0)
[2017-03-03 22:13] LABS: Alanine Aminotransferase 19 units/L (7-56); Albumin 3.5 g/dL (3.9-5); Alkaline Phosphatase 132 units/L (35-129); Anion Gap 28 mmol/L; BUN/Creatinine Ratio 20; Blood Urea Nitrogen 16 mg/dL (7-17); Calcium 9.1 mg/dL (8.4-10.2); Carbon Dioxide 20 mmol/L (22-30); Chloride 95.7 mmol/L (98-107); Glucose 95 mg/dL (65-100); Lipase 12 units/L (13-60); Potassium 3.5 mmol/L (3.6-5.0); Sodium 140 mmol/L (137-145)
[2017-03-03] MEDS ORDERED: PEPCID IV ONE (22:19)
[2017-03-03 23:22] LABS: Bilirubin,Urine NEG (Negative); Blood,Urine NEG (Negative); Ketones,Urine 80 mg/dL (Negative); Leukocyte Esterase,Urine NEG (Negative); Mucus,Urine FEW /HPF; Nitrite,Urine NEG (Negative); Urobilinogen,Urine < 2.0 mg/dL (<2.0)
[2017-03-04] MEDS ORDERED: NACL 0.9% 1000 ML 1,000 ML ONE (01:09)
[2017-03-04] MEDS ORDERED: ZOFRAN IV ONE (01:48)
--- NOTE | 2017-03-04 02:00 | History and Physical Report ---
History of Present Illness Chief complaint: I feel sick, I cant keep anything down, and I keep throwing up History of present illness: 21 YO Female with DM complicated by Gastroparesis, Medication Noncompliance, presents to ED for evaluation. Pt states that she has experienced high blood glucose at home with level above 500, as well as persistent nausea and vomiting for the past 3 days with persistent symptoms over the same time period. Pt seen and evaluated in ED and found to have elevated serum glucose, as well as abdominal discomfort. Pt acknowledges polydipsia, polyuria, as well as medication noncompliance. Pt denies fever, chills, CP, palpitations, syncope, BRBPR, Productive cough, Falls, Trauma. Pt unable to tolerated oral intake. Pt treated with insulin therpay, and IVF resuscitation for volume depletion. Past History Past Medical History: diabetes Past Surgical History: No surgical history, Other (reviewed) Social history: single. denies: smoking, alcohol abuse, prescription drug abuse Family history: diabetes, hypertension Medications and Allergies Allergies Allergy/AdvReac Type Severity Reaction Status Date / Time Penicillins Allergy Anaphylaxis Verified 12/15/16 18:15 sulfamethoxazole Allergy Hives Verified 12/15/16 18:15 [From Bactrim] trimethoprim [From Bactrim] Allergy Hives Verified 12/15/16 18:15 Home Medications Medication Instructions Recorded Confirmed Last Taken Type Insulin Aspart [NovoLOG 100 0 units .ROUTE AC 03/04/15 02/02/17 12/07/16 History UNITS/ML VIAL] Insulin NPH/Regular [NovoLIN 70/30] 30 unit SQ BID #60 units MDD 60 12/12/16 Unknown Rx Review of Systems Constitutional: no weight loss, no weight gain, no fever, no chills Ears, nose, mouth and throat: no ear pain, no ear discharge, no tinnitis, no decreased hearing, no nose pain, no nasal congestion, no nasal discharge Breasts: no change in shape, no swelling, no mass Cardiovascular: no chest pain, no orthopnea, no palpitations, no rapid/ irregular heart beat, no edema, no syncope, no lightheadedness Respiratory: no cough, no cough with sputum, no excessive sputum, no hemoptysis , no shortness of breath, no dyspnea on exertion Gastrointestinal: nausea, vomiting, no abdominal pain, no constipation, no change in bowel habits, no hematemesis, no coffee ground emesis, no BRBPR, no melena, no hematochezia, no loss of appetite Genitourinary Female: no pelvic pain, no flank pain, no menorrhagia, no dysuria , no urinary frequency Rectal: no pain Musculoskeletal: no neck stiffness, no neck pain, no shooting arm pain, no arm numbness/tingling, no low back pain, no shooting leg pain, no leg numbness/ tingling, no redness of joints Integumentary: no rash, no pruritis, no redness, no sores, no wounds, no jaundice Neurological: no transient paralysis, no paralysis, no weakness, no parathesias , no numbness, no tingling, no seizures Psychiatric: no anxiety, no memory loss, no change in sleep habits, no sleep disturbances, no insomnia, no hypersomnia, no change in appetite, no change in libido, no suicidal ideation Endocrine: excessive thirst, polydipsia, polyuria, nocturia, no cold intolerance , no heat intolerance Hematologic/Lymphatic: no easy bruising, no easy bleeding Allergic/Immunologic: no urticaria, no allergic rhinitis, no wheezing Exam - Constitutional Vitals: Temp Pulse Resp BP Pulse Ox 98.5 F 109 H 24 144/94 100 03/03/17 21:20 03/03/17 21:20 03/03/17 21:12 03/03/17 21:20 03/03/17 21:20 General appearance: Present: mild distress, cachectic, disheveled, malodorous - EENT Eyes: Present: PERRL ENT: hearing intact, clear oral mucosa - Neck Neck: Present: supple, normal ROM - Respiratory Respiratory effort: normal Respiratory: bilateral: CTA - Cardiovascular Heart Sounds: Present: S1 & S2. Absent: rub, click - Extremities Extremities: pulses symmetrical, No edema Peripheral Pulses: within normal limits - Abdominal General gastrointestinal: Present: soft, non-tender, non-distended, normal bowel sounds Female genitourinary: Present: normal - Integumentary Integumentary: Present: clear, dry, decreased turgor - Musculoskeletal Musculoskeletal: generalized weakness - Psychiatric Psychiatric: appropriate mood/affect, intact judgment & insight - Neurologic Neurologic: CNII-XII intact, moves all extremities Results - Labs CBC & Chem 7: 03/03/17 21:33 03/03/17 21:33 Labs: Abnormal lab results 03/03/17 03/03/17 03/04/17 Range/Units 21:33 21:33 00:35 RDW 15.6 H (13.2-15.2) % Plt Count 445 H (140-440) K/mm3 Lymph % (Auto) 10.2 L (13.4-35.0) % Lymph # 0.8 L (1.2-5.4) K/mm3 Seg Neutrophils % 85.4 H (40.0-70.0) % Potassium 3.5 L (3.6-5.0) mmol/L Chloride 95.7 L (98-107) mmol/L Carbon Dioxide 20 L (22-30) mmol/L POC Glucose 224 H (70-105) Alkaline Phosphatase 132 H (35-129) units/L Albumin 3.5 L (3.9-5) g/dL Lipase 12 L (13-60) units/L Assessment and Plan - Patient Problems (1) Intractable nausea and vomiting Current Visit: Yes Status: Acute Plan to address problem: Anti emetic therapy, IVF resuscitation, frequent small meals, supportive care, (2) Uncontrolled diabetes mellitus Current Visit: Yes Status: Acute Plan to address problem: ADA diet when patient can tolerated oral intake, SSI therapy, Serial Accu check , (3) Gastroparesis Current Visit: Yes Status: Acute Plan to address problem: IVF resuscitation, anti emetic therapy, promotility therapy with reglan, early ambulation, frequent small meals, (4) Noncompliance Current Visit: Yes Status: Acute Plan to address problem: Pt counseled, Pt informed of risk of worsening disease, need for dialysis, and . (5) DVT prophylaxis Current Visit: Yes Status: Acute
[2017-03-04] MEDS ORDERED: PROVENTIL IH PRN (02:21)
[2017-03-04] MEDS ORDERED: D50W (25GM) Syringe IV PRN (02:24)
[2017-03-04] MEDS ORDERED: D50W (25GM) Vial IV PRN (02:38)
[2017-03-04] MEDS: TYLENOL PO PRN ×2 (04:00→16:39)
[2017-03-04] MEDS: NACL 0.45% 1000 ML 1,000 ML IV SCH ×3 (04:00→17:51)
[2017-03-04] MEDS: ZOFRAN IV PRN ×5 (04:01→22:17)
--- NOTE | 2017-03-04 07:26 | XRay Report ---
AP chest x-ray. History: Chest pain. Findings: The patient is rotated to the left. The heart and lungs are within normal limits. Impression: Normal study.
[2017-03-04] MEDS: NOVOLOG SUB-Q SCH ×4 (07:40→22:17)
--- NOTE | 2017-03-04 08:28 | Event Note ---
Date: 03/04/17 Patient is 21-year-old diabetic with nausea, vomiting,gastroparesis. I have seen and examined her today. Continue current management.
[2017-03-04] MEDS ORDERED: ZOFRAN IM ONE (09:19)
[2017-03-04] MEDS: MORPHINE IV PRN ×3 (09:51→22:16)
--- NOTE | 2017-03-04 11:22 | Cat Scan Report ---
FINAL REPORT EXAM: CT ABDOMEN PELVIS W CON HISTORY: abd pain, n,v TECHNIQUE: Routine axial imaging was obtained of the abdomen and pelvis following the intravenous injection of 60 cc of Omnipaque 300. Correlation is made with the previous study of 12/09/2016. Sagittal and coronal reconstructions were reviewed along with delayed images. FINDINGS: The lung bases do not show any infiltrates or effusions. There is a stable moderate size hiatal hernia. The liver, spleen, gallbladder, pancreas and adrenal glands appear normal. The kidneys show no evidence of stones or hydronephrosis. The bowel loops are normal in caliber and course. The appendix is not seen. The uterus and bladder appear normal. There is a small amount of free fluid in the cul-de-sac. The skeletal structures are well-maintained. IMPRESSION: Small amount of free fluid in the cul-de-sac which is of uncertain etiology. No acute process in the upper abdomen.
[2017-03-05] MEDS: NACL 0.45% 1000 ML 1,000 ML IV SCH (02:05)
[2017-03-05] MEDS: NOVOLOG SUB-Q SCH ×4 (06:30→23:14)
[2017-03-05] MEDS: ZOFRAN IV PRN ×4 (07:46→21:25)
[2017-03-05] MEDS: MORPHINE IV PRN ×4 (07:46→21:25)
[2017-03-05 07:58] LABS: BUN/Creatinine Ratio 10; Blood Urea Nitrogen 7 mg/dL (7-17); Carbon Dioxide 22 mmol/L (22-30); Glucose 77 mg/dL (65-100)
[2017-03-05 07:59] LABS: Anion Gap 20 mmol/L; Calcium 8.9 mg/dL (8.4-10.2); Chloride 101.2 mmol/L (98-107); Potassium 3.5 mmol/L (3.6-5.0); Sodium 140 mmol/L (137-145)
[2017-03-05 09:54] LABS: Creatine Kinase MB 1.1 ng/mL (0.0-4.0)
--- NOTE | 2017-03-05 10:18 | Progress Note ---
Assessment and Plan Assessment and plan: (1) Intractable nausea and vomiting Cont. Anti emetic therapy, IVF resuscitation, frequent small meals, supportive care, (2) Uncontrolled diabetes mellitus ADA diet when patient can tolerated oral intake, SSI therapy, Serial Accu check , (3) Gastroparesis IVF resuscitation, anti emetic therapy, promotility therapy with reglan, early ambulation, frequent small meals, (4) Noncompliance Pt counseled, Pt informed of risk of worsening disease, need for dialysis, and . (5) DVT prophylaxis Add lovenox nightly History Interval history: No new issues overnight Hospitalist Physical - Constitutional Vitals: Temp Pulse Resp BP Pulse Ox 98.3 F 100 H 20 130/93 100 03/05/17 07:30 03/05/17 07:30 03/05/17 07:30 03/05/17 07:30 03/05/17 07:30 General appearance: Present: mild distress, cachectic, disheveled, malodorous - EENT Eyes: Present: PERRL, EOM intact ENT: hearing intact, clear oral mucosa, dentition normal - Neck Neck: Present: supple, normal ROM - Respiratory Respiratory effort: normal Respiratory: bilateral: CTA - Cardiovascular Rhythm: regular Heart Sounds: Present: S1 & S2. Absent: gallop, rub - Extremities Extremities: no ischemia, No edema, Full ROM - Abdominal General gastrointestinal: soft, non-tender, non-distended, normal bowel sounds - Integumentary Integumentary: Present: clear, warm, dry - Neurologic Neurologic: CNII-XII intact, moves all extremities Results - Labs CBC & Chem 7: 03/03/17 21:33 03/05/17 07:15 Labs: Laboratory Last Values WBC 8.3 K/mm3 (4.5-11.0) 03/03/17 21:33 RBC 4.63 M/mm3 (3.65-5.03) 03/03/17 21:33 Hgb 12.8 gm/dl (10.1-14.3) 03/03/17 21:33 Hct 39.8 % (30.3-42.9) 03/03/17 21:33 MCV 86 fl (79-97) 03/03/17 21:33 MCH 28 pg (28-32) 03/03/17 21:33 MCHC 32 % (30-34) 03/03/17 21:33 RDW 15.6 % (13.2-15.2) H 03/03/17 21:33 Plt Count 445 K/mm3 (140-440) H 03/03/17 21:33 Lymph % (Auto) 10.2 % (13.4-35.0) L 03/03/17 21:33 [place] % (Auto) 3.9 % (0.0-7.3) 03/03/17 21:33 Eos % (Auto) 0.0 % (0.0-4.3) 03/03/17 21:33 Baso % (Auto) 0.5 % (0.0-1.8) 03/03/17 21:33 Lymph # 0.8 K/mm3 (1.2-5.4) L 03/03/17 21:33 [place] # 0.3 K/mm3 (0.0-0.8) 03/03/17 21: Eos # 0.0 K/mm3 (0.0-0.4) 03/03/17 21:33 Baso # 0.0 K/mm3 (0.0-0.1) 03/03/17 21:33 Seg Neutrophils % 85.4 % (40.0-70.0) H 03/03/17 21:33 Seg Neutrophils # 7.1 K/mm3 (1.8-7.7) 03/03/17 21:33 PT 13.1 Sec. (12.2-14.9) 03/03/17 21:33 INR 0.94 (0.87-1.13) 03/03/17 21:33 VBG pH 7.365 (7.320-7.420) 03/03/17 21:33 Sodium 140 mmol/L (137-145) 03/05/17 07:15 Potassium 3.5 mmol/L (3.6-5.0) L 03/05/17 07:15 Chloride 101.2 mmol/L (98-107) 03/05/17 07:15 Carbon Dioxide 22 mmol/L (22-30) 03/05/17 07:15 Anion Gap 20 mmol/L 03/05/17 07:15 BUN 7 mg/dL (7-17) 03/05/17 07:15 Creatinine 0.7 mg/dL (0.7-1.2) 03/05/17 07:15 Estimated GFR > 60 ml/min 03/05/17 07:15 BUN/Creatinine Ratio 10 % 03/05/17 07:15 Glucose 77 mg/dL (65-100) 03/05/17 07:15 POC Glucose 139 (70-105) H 03/05/17 08:41 Calcium 8.9 mg/dL (8.4-10.2) 03/05/17 07:15 Magnesium 1.90 mg/dL (1.7-2.3) 03/03/17 21:33 Total Bilirubin 0.20 mg/dL (0.1-1.2) 03/03/17 21:33 AST 29 units/L (5-40) 03/03/17 21:33 ALT 19 units/L (7-56) 03/03/17 21:33 Alkaline Phosphatase 132 units/L (35-129) H 03/03/17 21:33 Total Creatine Kinase 61 units/L (30-135) 03/05/17 08:57 CK-MB (CK-2) 1.1 ng/mL (0.0-4.0) 03/05/17 08:57 CK-MB (CK-2) Rel Index 1.8 (0-4) 03/05/17 08:57 Troponin T < 0.010 ng/mL (0.00-0.029) 03/04/17 03:33 Total Protein 7.0 g/dL (6.3-8.2) 03/03/17 21:33 Albumin 3.5 g/dL (3.9-5) L 03/03/17 21:33 Albumin/Globulin Ratio 1.0 % 03/03/17 21:33 Lipase 12 units/L (13-60) L 03/03/17 21:33 HCG, Qual Negative (Negative) 03/03/17 21:33 Urine Color Yellow (Yellow) 03/03/17 22:41 Urine Turbidity Clear (Clear) 03/03/17 22:41 Urine pH 5.0 (5.0-7.0) 03/03/17 22:41 Ur Specific [place] 1.021 (1.003-1.030) 03/03/17 22:41 Urine Protein 30 mg/dl mg/dL (Negative) 03/03/17 22:41 Urine Glucose (UA) >=500 mg/dL (Negative) 03/03/17 22:41 Urine Ketones 80 mg/dL (Negative) 03/03/17 22:41 Urine Blood Neg (Negative) 03/03/17 22:41 Urine Nitrite Neg (Negative) 03/03/17 22:41 Ur Reducing Substances Not Reportable 03/03/17 22:41 Urine Bilirubin Neg (Negative) 03/03/17 22:41 Urine Ictotest Not Reportable 03/03/17 22:41 Urine Urobilinogen < 2.0 mg/dL (<2.0) 03/03/17 22:41 Ur Leukocyte Esterase Neg (Negative) 03/03/17 22:41 Urine WBC (Auto) 1.0 /HPF (0.0-6.0) 03/03/17 22:41 Urine RBC (Auto) 1.0 /HPF (0.0-6.0) 03/03/17 22:41 U Epithel Cells (Auto) 4.0 /HPF (0-13.0) 03/03/17 22:41 Hyaline Casts 4 /LPF 03/03/17 22:41 Urine Mucus Few /HPF 03/03/17 22:41
[2017-03-05 15:11] LABS: Creatine Kinase 34 units/L (30-135)
[2017-03-05 15:19] LABS: Creatine Kinase MB < 1.0 ng/mL (0.0-4.0)
[2017-03-05 21:52] LABS: Creatine Kinase 32 units/L (30-135)
[2017-03-05 22:02] LABS: Creatine Kinase MB < 1.0 ng/mL (0.0-4.0)
[2017-03-05] MEDS: LOVENOX SUB-Q SCH (23:09)
[2017-03-06] MEDS: MORPHINE IV PRN ×2 (01:06→06:00)
[2017-03-06] MEDS: ZOFRAN IV PRN ×4 (01:06→20:35)
[2017-03-06] MEDS: NACL 0.45% 1000 ML 1,000 ML IV SCH ×2 (03:53→22:45)
[2017-03-06] MEDS: NOVOLOG SUB-Q SCH ×5 (06:00→23:00)
[2017-03-06 06:40] LABS: Basophils % (Auto) 0.6 % (0.0-1.8); Hematocrit 36.4 % (30.3-42.9); Hemoglobin 11.7 gm/dl (10.1-14.3); Mean Corpuscular HGB Conc 32 % (30-34); Mean Corpuscular Hemoglobin 29 pg (28-32); Mean Corpuscular Volume 90 fl (79-97); Platelet Count 332 K/mm3 (140-440); Red Blood Count 4.04 M/mm3 (3.65-5.03); Red Cell Distribution Width 16.3 % (13.2-15.2); White Blood Count 10.9 K/mm3 (4.5-11.0)
[2017-03-06 06:52] LABS: Anion Gap TNR mmol/L; Calcium TNR mg/dL (8.4-10.2); Carbon Dioxide TNR mmol/L (22-30); Potassium TNR mmol/L (3.6-5.0)
[2017-03-06 06:55] LABS: Sodium TNR mmol/L (137-145)
[2017-03-06 06:56] LABS: Chloride TNR mmol/L (98-107)
[2017-03-06 06:57] LABS: BUN/Creatinine Ratio TNR; Blood Urea Nitrogen TNR mg/dL (7-17); Glucose TNR mg/dL (65-100)
[2017-03-06 09:47] LABS: BUN/Creatinine Ratio 10; Blood Urea Nitrogen 10 mg/dL (7-17); Calcium 8.7 mg/dL (8.4-10.2); Chloride 94.5 mmol/L (98-107); Glucose 255 mg/dL (65-100); Sodium 136 mmol/L (137-145)
[2017-03-06 09:57] LABS: Anion Gap 38 mmol/L; Potassium 5.4 mmol/L (3.6-5.0)
[2017-03-06 09:59] LABS: Carbon Dioxide 9 mmol/L (22-30)
--- NOTE | 2017-03-06 10:24 | Progress Note ---
Assessment and Plan Assessment and plan: Intractable nausea and vomiting Cont. Anti emetic therapy, IVF resuscitation, frequent small meals, supportive care, Uncontrolled diabetes mellitus ADA diet when patient can tolerated oral intake, SSI therapy, Serial Accu check , Gastroparesis Cont. IVF resuscitation, anti emetic therapy, start reglan, early ambulation, frequent small meals, Noncompliance Pt counseled, Pt informed of risk of worsening disease, need for dialysis, and . DVT prophylaxis Cont. Lovenox Metabolic acidosis ? Etiology. Check lactic acid level and venous ph. Hematemesis Etiology, likely secondary to Jossie-Avalos tear from vomiting. GI consultation History Interval history: patient still complains of nausea and vomiting. Hospitalist Physical - Constitutional Vitals: Temp Pulse Resp BP Pulse Ox 98.3 F 122 H 18 110/60 98 03/06/17 07:29 03/06/17 07:29 03/06/17 07:29 03/06/17 07:29 03/06/17 07:29 General appearance: Present: no acute distress, cachectic, disheveled, malodorous - EENT Eyes: Present: PERRL, EOM intact ENT: hearing intact, clear oral mucosa, dentition normal - Neck Neck: Present: supple, normal ROM - Respiratory Respiratory effort: normal Respiratory: bilateral: CTA - Cardiovascular Rhythm: regular Heart Sounds: Present: S1 & S2. Absent: gallop, rub - Extremities Extremities: no ischemia, No edema, Full ROM - Abdominal General gastrointestinal: soft, non-tender, non-distended, normal bowel sounds - Integumentary Integumentary: Present: clear, warm, dry - Neurologic Neurologic: CNII-XII intact, moves all extremities Results - Labs CBC & Chem 7: 03/06/17 06:14 03/06/17 09:05 Labs: Laboratory Last Values WBC 10.9 K/mm3 (4.5-11.0) 03/06/17 06:14 RBC 4.04 M/mm3 (3.65-5.03) 03/06/17 06:14 Hgb 11.7 gm/dl (10.1-14.3) 03/06/17 06:14 Hct 36.4 % (30.3-42.9) 03/06/17 06:14 MCV 90 fl (79-97) 03/06/17 06:14 MCH 29 pg (28-32) 03/06/17 06:14 MCHC 32 % (30-34) 03/06/17 06:14 RDW 16.3 % (13.2-15.2) H 03/06/17 06:14 Plt Count 332 K/mm3 (140-440) 03/06/17 06:14 Lymph % (Auto) 14.8 % (13.4-35.0) 03/06/17 06:14 [place] % (Auto) 8.9 % (0.0-7.3) H 03/06/17 06:14 Eos % (Auto) 0.0 % (0.0-4.3) 03/06/17 06:14 Baso % (Auto) 0.6 % (0.0-1.8) 03/06/17 06:14 Lymph # 1.6 K/mm3 (1.2-5.4) 03/06/17 06:14 [place] # 1.0 K/mm3 (0.0-0.8) H 03/06/17 06:14 Eos # 0.0 K/mm3 (0.0-0.4) 03/06/17 06:14 Baso # 0.1 K/mm3 (0.0-0.1) 03/06/17 06:14 Seg Neutrophils % 75.7 % (40.0-70.0) H 03/06/17 06:14 Seg Neutrophils # 8.3 K/mm3 (1.8-7.7) H 03/06/17 06:14 PT 13.1 Sec. (12.2-14.9) 03/03/17 21:33 INR 0.94 (0.87-1.13) 03/03/17 21:33 VBG pH 7.365 (7.320-7.420) 03/03/17 21:33 Sodium 136 mmol/L (137-145) L 03/06/17 09:05 Potassium 5.4 mmol/L (3.6-5.0) H D 03/06/17 09:05 Chloride 94.5 mmol/L (98-107) L 03/06/17 09:05 Carbon Dioxide 9 mmol/L (22-30) L* D 03/06/17 09:05 Anion Gap 38 mmol/L 03/06/17 09:05 BUN 10 mg/dL (7-17) 03/06/17 09:05 Creatinine 1.0 mg/dL (0.7-1.2) 03/06/17 09:05 Estimated GFR > 60 ml/min 03/06/17 09:05 BUN/Creatinine Ratio 10 % 03/06/17 09:05 Glucose 255 mg/dL (65-100) H 03/06/17 09:05 POC Glucose 236 (70-105) H 03/06/17 08:26 Calcium 8.7 mg/dL (8.4-10.2) 03/06/17 09:05 Magnesium 1.90 mg/dL (1.7-2.3) 03/03/17 21:33 Total Bilirubin 0.20 mg/dL (0.1-1.2) 03/03/17 21:33 AST 29 units/L (5-40) 03/03/17 21:33 ALT 19 units/L (7-56) 03/03/17 21:33 Alkaline Phosphatase 132 units/L (35-129) H 03/03/17 21:33 Total Creatine Kinase 32 units/L (30-135) 03/05/17 21:09 CK-MB (CK-2) < 1.0 ng/mL (0.0-4.0) 03/05/17 21:09 CK-MB (CK-2) Rel Index 3.1 (0-4) 03/05/17 21:09 Troponin T < 0.010 ng/mL (0.00-0.029) 03/04/17 03:33 Total Protein 7.0 g/dL (6.3-8.2) 03/03/17 21:33 Albumin 3.5 g/dL (3.9-5) L 03/03/17 21:33 Albumin/Globulin Ratio 1.0 % 03/03/17 21:33 Lipase 12 units/L (13-60) L 03/03/17 21:33 HCG, Qual Negative (Negative) 03/03/17 21:33 Urine Color Yellow (Yellow) 03/03/17 22:41 Urine Turbidity Clear (Clear) 03/03/17 22:41 Urine pH 5.0 (5.0-7.0) 03/03/17 22:41 Ur Specific [place] 1.021 (1.003-1.030) 03/03/17 22:41 Urine Protein 30 mg/dl mg/dL (Negative) 03/03/17 22:41 Urine Glucose (UA) >=500 mg/dL (Negative) 03/03/17 22:41 Urine Ketones 80 mg/dL (Negative) 03/03/17 22:41 Urine Blood Neg (Negative) 03/03/17 22:41 Urine Nitrite Neg (Negative) 03/03/17 22:41 Ur Reducing Substances Not Reportable 03/03/17 22:41 Urine Bilirubin Neg (Negative) 03/03/17 22:41 Urine Ictotest Not Reportable 03/03/17 22:41 Urine Urobilinogen < 2.0 mg/dL (<2.0) 03/03/17 22:41 Ur Leukocyte Esterase Neg (Negative) 03/03/17 22:41 Urine WBC (Auto) 1.0 /HPF (0.0-6.0) 03/03/17 22:41 Urine RBC (Auto) 1.0 /HPF (0.0-6.0) 03/03/17 22:41 U Epithel Cells (Auto) 4.0 /HPF (0-13.0) 03/03/17 22:41 Hyaline Casts 4 /LPF 03/03/17 22:41 Urine Mucus Few /HPF 03/03/17 22:41
[2017-03-06] MEDS ORDERED: TYLENOL PO PRN (10:26)
[2017-03-06] MEDS ORDERED: VANCOMYCIN PHARMACY TO DOSE IV SCH (14:00)
[2017-03-06] MEDS: PERCOCET 5/325 PO PRN ×2 (14:01→21:09)
[2017-03-06] MEDS: REGLAN IV PRN (14:02)
[2017-03-06 15:23] LABS: BUN/Creatinine Ratio 11; Blood Urea Nitrogen 11 mg/dL (7-17); Calcium 8.4 mg/dL (8.4-10.2); Glucose 486 mg/dL (65-100); Sodium 135 mmol/L (137-145)
[2017-03-06] MEDS: LEVAQUIN 750MG/150ML 750 MG/150 ML BAG IV SCH (15:45)
[2017-03-06 15:54] LABS: Anion Gap 44 mmol/L; Potassium 4.6 mmol/L (3.6-5.0)
[2017-03-06 15:59] LABS: Carbon Dioxide 6 mmol/L (22-30)
--- NOTE | 2017-03-06 16:45 | Gastroenterology Consultation ---
History of Present Illness - Reason for Consult Consult date: 03/06/17 nausea/vomiting Requesting physician: MIKE SUTTON - History of Present Illness Ms Barber is a 21 yo wf with h/o insulin dependent diabetes who presents with several day history of abdominal pain and n/v. She has a h/o non-compliance with medication, and has had similar admissions in the past for similar symptoms. She is unsure what her glucose levels were at home prior to admission , but found to be significantly elevated on admission. She continues to have diffuse abdominal pain with n/v since admission. She has had minimal po intake 2/2 symptoms. Denies signs of gi bleeding. Denies NSAIDs. Pt unaware of any prior endoscopy but states she has previously been diagnosed with gastroparesis. Past History Past Medical History: diabetes Past Surgical History: No surgical history, Other (reviewed) Social history: single. denies: smoking, alcohol abuse, prescription drug abuse Family history: diabetes, hypertension Medications and Allergies Allergies Allergy/AdvReac Type Severity Reaction Status Date / Time Penicillins Allergy Anaphylaxis Verified 12/15/16 18:15 sulfamethoxazole Allergy Hives Verified 12/15/16 18:15 [From Bactrim] trimethoprim [From Bactrim] Allergy Hives Verified 12/15/16 18:15 Home Medications Medication Instructions Recorded Confirmed Last Taken Type Insulin Aspart [NovoLOG 100 0 units .ROUTE AC 03/04/15 03/04/17 12/07/16 History UNITS/ML VIAL] Insulin NPH/Regular [NovoLIN 70/30] 30 unit SQ BID #60 units MDD 60 12/12/16 Unknown Rx Active Meds: Active Medications Acetaminophen (Tylenol) 650 mg PO Q4H PRN PRN Reason: Pain MILD(1-3)/Fever >100.5/CISNEROS Last Admin: 03/04/17 16:39 Dose: 650 mg Acetaminophen (Tylenol) 650 mg PO Q6H PRN PRN Reason: Pain, Mild (1-3) Albuterol (Proventil) 2.5 mg IH Q4HRT PRN PRN Reason: Shortness Of Breath Dextrose (D50w (25gm) Vial) 25 gm IV PRN PRN PRN Reason: Hypoglycemia Last Admin: 03/05/17 06:36 Dose: 25 gm Enoxaparin Sodium (Lovenox) 40 mg SUB-Q QDAY@2200 MILLY Last Admin: 03/05/17 23:09 Dose: 40 mg Sodium Chloride (Nacl 0.45% 1000 Ml) 1,000 mls @ 150 mls/hr IV DIRECT [facility] Last Admin: 03/06/17 03:53 Dose: 150 mls/hr Levofloxacin/Dextrose (Levaquin 750mg/150ml) 750 mg in 150 mls @ 100 mls/hr IV Q24H [facility] PRN Reason: Protocol Vancomycin HCl 1,500 mg/ (Sodium Chloride) 515 mls @ 333.333 mls/hr IV ONCE ONE Stop: 03/06/17 19:32 Insulin Aspart (Novolog) 0 units SUB-Q ACHS [facility] PRN Reason: Protocol Last Admin: 03/06/17 14:00 Dose: 6 units Insulin Human Isoph/Insulin Regular (Novolin 70/30) 30 unit SUB-Q BIDDIAB [facility] Last Admin: 03/06/17 08:00 Dose: Not Given Metoclopramide HCl (Reglan) 10 mg IV Q6H PRN PRN Reason: Nausea And Vomiting Last Admin: 03/06/17 14:02 Dose: 10 mg Morphine Sulfate (Morphine) 2 mg IV Q4H PRN PRN Reason: Pain, Moderate (4-6) Last Admin: 03/06/17 06:00 Dose: 2 mg Ondansetron HCl (Zofran) 4 mg IV Q4H PRN PRN Reason: Nausea And Vomiting Last Admin: 03/06/17 11:00 Dose: 4 mg Oxycodone/Acetaminophen (Percocet 5/325) 1 tab PO Q6H PRN PRN Reason: Pain, Moderate (4-6) Last Admin: 03/06/17 14:01 Dose: 1 tab Vancomycin HCl (Vancomycin Pharmacy To Dose) 1 each IV PKCONSULT [facility] PRN Reason: Protocol Review of Systems - Review of Systems All systems: negative (per HPI) Exam - Constitutional Vital Signs: Temp Pulse Resp BP Pulse Ox 98.3 F 125 H 22 114/29 99 03/06/17 13:19 03/06/17 13:19 03/06/17 13:19 03/06/17 13:19 03/06/17 13:19 General appearance: mild distress - EENT Eyes: PERRL, EOM intact ENT: hearing intact, other (dry mucous membranes) - Respiratory Respiratory effort: normal Respiratory: bilateral: CTA - Cardiovascular Rhythm: regular Heart Sounds: Present: S1 & S2 Extremities: No edema - Gastrointestinal General gastrointestinal: Present: soft, tender (diffuse ttp, no rebound/ guarding), non-distended, normal bowel sounds - Integumentary Integumentary: Present: warm, dry - Neurologic Neurological: alert and oriented x3 - Psychiatric Psychiatric: appropriate mood/affect - Labs CBC & Chem 7: 03/06/17 06:14 03/06/17 14:41 Lab Results: Laboratory Results - last 24 hr 03/05/17 03/05/17 03/05/17 16:48 21:09 21:36 WBC RBC Hgb Hct MCV MCH MCHC RDW Plt Count Lymph % (Auto) [place] % (Auto) Eos % (Auto) Baso % (Auto) Lymph # [place] # Eos # Baso # Seg Neutrophils % Seg Neutrophils # VBG pH Sodium Potassium Chloride Carbon Dioxide Anion Gap BUN Creatinine Estimated GFR BUN/Creatinine Ratio Glucose POC Glucose 203 H 155 H Lactic Acid Calcium Total Creatine Kinase 32 CK-MB (CK-2) < 1.0 CK-MB (CK-2) Rel Index 3.1 03/06/17 03/06/17 03/06/17 05:17 05:46 06:14 WBC 10.9 RBC 4.04 Hgb 11.7 Hct 36.4 MCV 90 MCH 29 MCHC 32 RDW 16.3 H Plt Count 332 Lymph % (Auto) 14.8 [place] % (Auto) 8.9 H Eos % (Auto) 0.0 Baso % (Auto) 0.6 Lymph # 1.6 [place] # 1.0 H Eos # 0.0 Baso # 0.1 Seg Neutrophils % 75.7 H Seg Neutrophils # 8.3 H VBG pH Sodium TNR Potassium TNR Chloride TNR Carbon Dioxide TNR Anion Gap TNR BUN TNR Creatinine TNR Estimated GFR TNR BUN/Creatinine Ratio TNR Glucose TNR POC Glucose 405 H Lactic Acid Calcium TNR Total Creatine Kinase CK-MB (CK-2) CK-MB (CK-2) Rel Index 03/06/17 03/06/17 03/06/17 08:26 09:05 11:11 WBC RBC Hgb Hct MCV MCH MCHC RDW Plt Count Lymph % (Auto) [place] % (Auto) Eos % (Auto) Baso % (Auto) Lymph # [place] # Eos # Baso # Seg Neutrophils % Seg Neutrophils # VBG pH Sodium 136 L Potassium 5.4 H D Chloride 94.5 L Carbon Dioxide 9 L* D Anion Gap 38 BUN 10 Creatinine 1.0 Estimated GFR > 60 BUN/Creatinine Ratio 10 Glucose 255 H POC Glucose 236 H Lactic Acid 4.10 H* Calcium 8.7 Total Creatine Kinase CK-MB (CK-2) CK-MB (CK-2) Rel Index 03/06/17 03/06/17 03/06/17 11:11 12:25 14:41 WBC RBC Hgb Hct MCV MCH MCHC RDW Plt Count Lymph % (Auto) [place] % (Auto) Eos % (Auto) Baso % (Auto) Lymph # [place] # Eos # Baso # Seg Neutrophils % Seg Neutrophils # VBG pH 7.411 Sodium 135 L Potassium 4.6 Chloride 90.0 L Carbon Dioxide 6 L* Anion Gap 44 BUN 11 Creatinine 1.0 Estimated GFR > 60 BUN/Creatinine Ratio 11 Glucose 486 H POC Glucose 342 H Lactic Acid Calcium 8.4 Total Creatine Kinase CK-MB (CK-2) CK-MB (CK-2) Rel Index 03/06/17 16:22 WBC RBC Hgb Hct MCV MCH MCHC RDW Plt Count Lymph % (Auto) [place] % (Auto) Eos % (Auto) Baso % (Auto) Lymph # [place] # Eos # Baso # Seg Neutrophils % Seg Neutrophils # VBG pH Sodium Potassium Chloride Carbon Dioxide Anion Gap BUN Creatinine Estimated GFR BUN/Creatinine Ratio Glucose POC Glucose 280 H Lactic Acid Calcium Total Creatine Kinase CK-MB (CK-2) CK-MB (CK-2) Rel Index - Imaging CT Scan: report reviewed Assessment and Plan 1. Intractable n/v 2. Abdominal pain 3. Uncontrolled DM -GI symptoms in setting of DKA/poorly controlled diabetes likely 2/2 gastroparesis. DKA management per primary team. Cont supprtive care, anti- emetics, and PPI daily. Avoid opiods. consider low dose ativan (short term). If symptoms persists, consider EGD as unclear if pt has had prior endoscopy. CT w/o acute findings.
[2017-03-06] MEDS ORDERED: VANCOMYCIN 1,500 MG in NACL 0.9% 500 ML 500 ML IV ONE (18:00)
[2017-03-06] MEDS: LOVENOX SUB-Q SCH (22:45)
[2017-03-07] MEDS: ZOFRAN IV PRN ×4 (04:15→22:17)
[2017-03-07] MEDS: NACL 0.45% 1000 ML 1,000 ML IV SCH (06:02)
[2017-03-07] MEDS: NOVOLOG SUB-Q SCH (06:48)
[2017-03-07] MEDS: PERCOCET 5/325 PO PRN (07:01)
[2017-03-07 07:31] LABS: Basophils % (Auto) 0.4 % (0.0-1.8); Eosinophils % (Auto) 0.1 % (0.0-4.3); Hematocrit 36.7 % (30.3-42.9); Hemoglobin 11.4 gm/dl (10.1-14.3); Mean Corpuscular HGB Conc 31 % (30-34); Mean Corpuscular Hemoglobin 29 pg (28-32); Mean Corpuscular Volume 92 fl (79-97); Platelet Count 328 K/mm3 (140-440); Red Cell Distribution Width 16.3 % (13.2-15.2); White Blood Count 10.2 K/mm3 (4.5-11.0)
[2017-03-07 07:40] LABS: BUN/Creatinine Ratio 10; Blood Urea Nitrogen 10 mg/dL (7-17); Calcium 8.6 mg/dL (8.4-10.2); Chloride 91.4 mmol/L (98-107); Glucose 462 mg/dL (65-100); Potassium 4.2 mmol/L (3.6-5.0); Sodium 136 mmol/L (137-145)
[2017-03-07 07:47] LABS: Anion Gap 44 mmol/L; Carbon Dioxide 5 mmol/L (22-30)
[2017-03-07] MEDS ORDERED: D50W (25GM) Syringe IV PRN (08:47)
--- NOTE | 2017-03-07 08:47 | Progress Note ---
Assessment and Plan Assessment and plan: Diabetic ketoacidosis. Patient has very high glucose of 462, and acidosis with CO2 of 5 and anion gapof 44. Will transfer to ICU and start Insulin drip as per DKA protocol. Start ivf NS. Check fingerstick Q 1hr. Nausea and vomiting due to DKA and gastroparesis Gastroparesis. On Metformin. GI following Full code status History Interval history: nausea and vomiting Elevated blood glucose Hospitalist Physical - Physical exam Narrative exam: GEN APPEARANCE : In mild distress from vomiting, HEENT: Normocephalic Atraumatic NECK : supple, no JVD LUNGS: clear to auscultation bilaterally, no rales, no wheeze HEART: S1 and S2 regular, no murmurs, rubs or gallop, ABD: Soft, no tenderness, no distension, normal bowel sounds EXT: No edema, no clubbing, no cyanosis NEURO: Awake,alert,oriented x 3, moves all extremities, non focal - Constitutional Vitals: Temp Pulse Resp BP Pulse Ox 99.0 F 109 H 16 104/60 99 03/06/17 21:40 03/06/17 21:40 03/06/17 21:40 03/06/17 21:40 03/06/17 21:40 Results - Labs CBC & Chem 7: 03/07/17 06:38 03/07/17 06:38 Labs: Laboratory Last Values WBC 10.2 K/mm3 (4.5-11.0) 03/07/17 06:38 RBC 4.00 M/mm3 (3.65-5.03) 03/07/17 06:38 Hgb 11.4 gm/dl (10.1-14.3) 03/07/17 06:38 Hct 36.7 % (30.3-42.9) 03/07/17 06:38 MCV 92 fl (79-97) 03/07/17 06:38 MCH 29 pg (28-32) 03/07/17 06:38 MCHC 31 % (30-34) 03/07/17 06:38 RDW 16.3 % (13.2-15.2) H 03/07/17 06:38 Plt Count 328 K/mm3 (140-440) 03/07/17 06:38 Lymph % (Auto) 18.5 % (13.4-35.0) 03/07/17 06:38 [place] % (Auto) 7.4 % (0.0-7.3) H 03/07/17 06:38 Eos % (Auto) 0.1 % (0.0-4.3) 03/07/17 06:38 Baso % (Auto) 0.4 % (0.0-1.8) 03/07/17 06:38 Lymph # 1.9 K/mm3 (1.2-5.4) 03/07/17 06:38 [place] # 0.8 K/mm3 (0.0-0.8) 03/07/17 06:38 Eos # 0.0 K/mm3 (0.0-0.4) 03/07/17 06:38 Baso # 0.0 K/mm3 (0.0-0.1) 03/07/17 06:38 Seg Neutrophils % 73.6 % (40.0-70.0) H 03/07/17 06:38 Seg Neutrophils # 7.6 K/mm3 (1.8-7.7) 03/07/17 06:38 PT 13.1 Sec. (12.2-14.9) 03/03/17 21:33 INR 0.94 (0.87-1.13) 03/03/17 21:33 VBG pH 7.411 (7.320-7.420) 03/06/17 11:11 Sodium 136 mmol/L (137-145) L 03/07/17 06:38 Potassium 4.2 mmol/L (3.6-5.0) 03/07/17 06:38 Chloride 91.4 mmol/L (98-107) L 03/07/17 06:38 Carbon Dioxide 5 mmol/L (22-30) L* 03/07/17 06:38 Anion Gap 44 mmol/L 03/07/17 06:38 BUN 10 mg/dL (7-17) 03/07/17 06:38 Creatinine 1.0 mg/dL (0.7-1.2) 03/07/17 06:38 Estimated GFR > 60 ml/min 03/07/17 06:38 BUN/Creatinine Ratio 10 % 03/07/17 06:38 Glucose 462 mg/dL (65-100) H 03/07/17 06:38 POC Glucose 421 (70-105) H 03/07/17 05:35 Lactic Acid 4.10 mmol/L (0.7-2.0) H* 03/06/17 11:11 Calcium 8.6 mg/dL (8.4-10.2) 03/07/17 06:38 Magnesium 1.90 mg/dL (1.7-2.3) 03/03/17 21:33 Total Bilirubin 0.20 mg/dL (0.1-1.2) 03/03/17 21:33 AST 29 units/L (5-40) 03/03/17 21:33 ALT 19 units/L (7-56) 03/03/17 21:33 Alkaline Phosphatase 132 units/L (35-129) H 03/03/17 21:33 Total Creatine Kinase 32 units/L (30-135) 03/05/17 21:09 CK-MB (CK-2) < 1.0 ng/mL (0.0-4.0) 03/05/17 21:09 CK-MB (CK-2) Rel Index 3.1 (0-4) 03/05/17 21:09 Troponin T < 0.010 ng/mL (0.00-0.029) 03/04/17 03:33 Total Protein 7.0 g/dL (6.3-8.2) 03/03/17 21:33 Albumin 3.5 g/dL (3.9-5) L 03/03/17 21:33 Albumin/Globulin Ratio 1.0 % 03/03/17 21:33 Lipase 12 units/L (13-60) L 03/03/17 21:33 HCG, Qual Negative (Negative) 03/03/17 21:33 Urine Color Yellow (Yellow) 03/03/17 22:41 Urine Turbidity Clear (Clear) 03/03/17 22:41 Urine pH 5.0 (5.0-7.0) 03/03/17 22:41 Ur Specific [place] 1.021 (1.003-1.030) 03/03/17 22:41 Urine Protein 30 mg/dl mg/dL (Negative) 03/03/17 22:41 Urine Glucose (UA) >=500 mg/dL (Negative) 03/03/17 22:41 Urine Ketones 80 mg/dL (Negative) 03/03/17 22:41 Urine Blood Neg (Negative) 03/03/17 22:41 Urine Nitrite Neg (Negative) 03/03/17 22:41 Ur Reducing Substances Not Reportable 03/03/17 22:41 Urine Bilirubin Neg (Negative) 03/03/17 22:41 Urine Ictotest Not Reportable 03/03/17 22:41 Urine Urobilinogen < 2.0 mg/dL (<2.0) 03/03/17 22:41 Ur Leukocyte Esterase Neg (Negative) 03/03/17 22:41 Urine WBC (Auto) 1.0 /HPF (0.0-6.0) 03/03/17 22:41 Urine RBC (Auto) 1.0 /HPF (0.0-6.0) 03/03/17 22:41 U Epithel Cells (Auto) 4.0 /HPF (0-13.0) 03/03/17 22:41 Hyaline Casts 4 /LPF 03/03/17 22:41 Urine Mucus Few /HPF 03/03/17 22:41
[2017-03-07] MEDS ORDERED: NACL 0.9% 1000 ML 1,000 ML IV SCH (09:00)
[2017-03-07] MEDS: REGLAN IV PRN ×2 (09:13→19:19)
[2017-03-07 09:36] LABS: Magnesium 1.9 mg/dL (1.7-2.3)
[2017-03-07] MEDS ORDERED: NovoLIN R 100 UNITS in NACL 0.9% 99 ML IV SCH (10:00)
[2017-03-07] MEDS: VANCOMYCIN 1,250 MG in NACL 0.9% 250ML 250 ML IV SCH ×2 (10:20→22:41)
--- NOTE | 2017-03-07 10:48 | Gastroenterology Progress Note ---
<SABRINA HORNE - Last Filed: 03/07/17 10:48> Assessment and Plan 1. Intractable n/v 2. Abdominal pain 3. Uncontrolled DM -CT w/o acute findings -BS >400-insulin gtt and transfer to ICU pending today -clinically pt with continued N/V and abd pain- etiology most likely due to DKA /poorly controlled diabetes likely 2/2 gastroparesis -DKA management per primary team -will consider EGD if GI symptoms persist once DKA resolved -will start on daily PPI -continue supportive care -will follow Subjective Date of service: 03/07/17 Principal diagnosis: N/V, abd pain Interval history: Patient with continued complaints of N/V and generalized abd pain. Transfer to ICU pending today for treatment of DKA with insulin gtt. Objective - Constitutional Vitals: Temp Pulse Resp BP Pulse Ox 98.6 F 125 H 20 103/42 96 03/07/17 10:35 03/07/17 10:35 03/07/17 10:35 03/07/17 10:35 03/07/17 10:35 General appearance: mild distress - EENT Eyes: PERRL, EOM intact ENT: hearing intact - Respiratory Respiratory: bilateral: CTA - Cardiovascular Rhythm: other (tachycardia) Heart Sounds: Present: S1 & S2 - Gastrointestinal General gastrointestinal: Present: soft, tender (generalized TTP), non-distended , normal bowel sounds - Labs CBC & Chem 7: 03/07/17 06:38 03/07/17 06:38 Labs: Laboratory Results - last 24 hr 03/06/17 03/06/17 03/06/17 11:11 11:11 12:25 WBC RBC Hgb Hct MCV MCH MCHC RDW Plt Count Lymph % (Auto) [place] % (Auto) Eos % (Auto) Baso % (Auto) Lymph # [place] # Eos # Baso # Seg Neutrophils % Seg Neutrophils # VBG pH 7.411 Sodium Potassium Chloride Carbon Dioxide Anion Gap BUN Creatinine Estimated GFR BUN/Creatinine Ratio Glucose POC Glucose 342 H Lactic Acid 4.10 H* Calcium Phosphorus Magnesium 03/06/17 03/06/17 03/06/17 14:41 16:22 20:22 WBC RBC Hgb Hct MCV MCH MCHC RDW Plt Count Lymph % (Auto) [place] % (Auto) Eos % (Auto) Baso % (Auto) Lymph # [place] # Eos # Baso # Seg Neutrophils % Seg Neutrophils # VBG pH Sodium 135 L Potassium 4.6 Chloride 90.0 L Carbon Dioxide 6 L* Anion Gap 44 BUN 11 Creatinine 1.0 Estimated GFR > 60 BUN/Creatinine Ratio 11 Glucose 486 H POC Glucose 280 H 215 H Lactic Acid Calcium 8.4 Phosphorus Magnesium 03/06/17 03/07/17 03/07/17 21:48 05:35 06:38 WBC 10.2 RBC 4.00 Hgb 11.4 Hct 36.7 MCV 92 MCH 29 MCHC 31 RDW 16.3 H Plt Count 328 Lymph % (Auto) 18.5 [place] % (Auto) 7.4 H Eos % (Auto) 0.1 Baso % (Auto) 0.4 Lymph # 1.9 [place] # 0.8 Eos # 0.0 Baso # 0.0 Seg Neutrophils % 73.6 H Seg Neutrophils # 7.6 VBG pH Sodium Potassium Chloride Carbon Dioxide Anion Gap BUN Creatinine Estimated GFR BUN/Creatinine Ratio Glucose POC Glucose 219 H 421 H Lactic Acid Calcium Phosphorus Magnesium 03/07/17 03/07/17 03/07/17 06:38 06:38 09:27 WBC RBC Hgb Hct MCV MCH MCHC RDW Plt Count Lymph % (Auto) [place] % (Auto) Eos % (Auto) Baso % (Auto) Lymph # [place] # Eos # Baso # Seg Neutrophils % Seg Neutrophils # VBG pH Sodium 136 L Potassium 4.2 Chloride 91.4 L Carbon Dioxide 5 L* Anion Gap 44 BUN 10 Creatinine 1.0 Estimated GFR > 60 BUN/Creatinine Ratio 10 Glucose 462 H POC Glucose 264 H Lactic Acid Calcium 8.6 Phosphorus 3.00 Magnesium 1.90 <QUANG ROBISON - Last Filed: 03/07/17 16:20> Assessment and Plan Patient seen and examined. Agree with note by Sabrina Horne. Transferred to ICU overnight for insulin drip. She is sleeping/arousable, reports mild improvement in abd pain and n/v. Suspect symptoms 2/2 DKA, which will hopefully improve once diabetes is controlled. No signs of gi bleeding. Will sign off, please call as needed or with questions. Objective - Constitutional Vitals: Temp Pulse Resp BP Pulse Ox 98.6 F 125 H 20 103/42 96 03/07/17 10:35 03/07/17 10:35 03/07/17 10:35 03/07/17 10:35 03/07/17 10:35 - Labs CBC & Chem 7: 03/07/17 06:38 03/07/17 14:39 Labs: Laboratory Results - last 24 hr 03/06/17 03/06/17 03/06/17 16:22 20:22 21:48 WBC RBC Hgb Hct MCV MCH MCHC RDW Plt Count Lymph % (Auto) [place] % (Auto) Eos % (Auto) Baso % (Auto) Lymph # [place] # Eos # Baso # Seg Neutrophils % Seg Neutrophils # Sodium Potassium Chloride Carbon Dioxide Anion Gap BUN Creatinine Estimated GFR BUN/Creatinine Ratio Glucose POC Glucose 280 H 215 H 219 H Calcium Phosphorus Magnesium Troponin T 03/07/17 03/07/17 03/07/17 05:35 06:38 06:38 WBC 10.2 RBC 4.00 Hgb 11.4 Hct 36.7 MCV 92 MCH 29 MCHC 31 RDW 16.3 H Plt Count 328 Lymph % (Auto) 18.5 [place] % (Auto) 7.4 H Eos % (Auto) 0.1 Baso % (Auto) 0.4 Lymph # 1.9 [place] # 0.8 Eos # 0.0 Baso # 0.0 Seg Neutrophils % 73.6 H Seg Neutrophils # 7.6 Sodium 136 L Potassium 4.2 Chloride 91.4 L Carbon Dioxide 5 L* Anion Gap 44 BUN 10 Creatinine 1.0 Estimated GFR > 60 BUN/Creatinine Ratio 10 Glucose 462 H POC Glucose 421 H Calcium 8.6 Phosphorus Magnesium Troponin T 03/07/17 03/07/17 03/07/17 06:38 09:27 12:01 WBC RBC Hgb Hct MCV MCH MCHC RDW Plt Count Lymph % (Auto) [place] % (Auto) Eos % (Auto) Baso % (Auto) Lymph # [place] # Eos # Baso # Seg Neutrophils % Seg Neutrophils # Sodium Potassium Chloride Carbon Dioxide Anion Gap BUN Creatinine Estimated GFR BUN/Creatinine Ratio Glucose POC Glucose 264 H 256 H Calcium Phosphorus 3.00 Magnesium 1.90 Troponin T 03/07/17 03/07/17 14:39 14:39 WBC RBC Hgb Hct MCV MCH MCHC RDW Plt Count Lymph % (Auto) [place] % (Auto) Eos % (Auto) Baso % (Auto) Lymph # [place] # Eos # Baso # Seg Neutrophils % Seg Neutrophils # Sodium 140 Potassium 3.8 Chloride 100.4 Carbon Dioxide 10 L Anion Gap 33 BUN 6 L Creatinine 1.0 Estimated GFR > 60 BUN/Creatinine Ratio 6 Glucose 134 H POC Glucose Calcium 8.1 L Phosphorus Magnesium Troponin T < 0.010
--- NOTE | 2017-03-07 10:48 | Consultation ---
History of Present Illness Consult date: 03/07/17 Requesting physician: MARISELA ALAS Reason for consult: other (DKA) History of present illness: PULMONARY/CCM CONSULT NOTE (Full dictation # [id number]) Please see dictated notes for full details Past History Past Medical History: diabetes Past Surgical History: No surgical history, Other (reviewed) Social history: single. denies: smoking, alcohol abuse, prescription drug abuse Family history: diabetes, hypertension Medications and Allergies Allergies Allergy/AdvReac Type Severity Reaction Status Date / Time Penicillins Allergy Anaphylaxis Verified 12/15/16 18:15 sulfamethoxazole Allergy Hives Verified 12/15/16 18:15 [From Bactrim] trimethoprim [From Bactrim] Allergy Hives Verified 12/15/16 18:15 Home Medications Medication Instructions Recorded Confirmed Last Taken Type Insulin Aspart [NovoLOG 100 0 units .ROUTE AC 03/04/15 03/04/17 12/07/16 History UNITS/ML VIAL] Insulin NPH/Regular [NovoLIN 70/30] 30 unit SQ BID #60 units MDD 60 12/12/16 Unknown Rx Active Meds: Active Medications Acetaminophen (Tylenol) 650 mg PO Q4H PRN PRN Reason: Pain MILD(1-3)/Fever >100.5/CISNEROS Last Admin: 03/04/17 16:39 Dose: 650 mg Acetaminophen (Tylenol) 650 mg PO Q6H PRN PRN Reason: Pain, Mild (1-3) Albuterol (Proventil) 2.5 mg IH Q4HRT PRN PRN Reason: Shortness Of Breath Dextrose (D50w (25gm) Syringe) 0 ml IV PRN PRN PRN Reason: Hypoglycemia Enoxaparin Sodium (Lovenox) 40 mg SUB-Q QDAY@2200 MILLY Last Admin: 03/06/17 22:45 Dose: 40 mg Levofloxacin/Dextrose (Levaquin 750mg/150ml) 750 mg in 150 mls @ 100 mls/hr IV Q24H MILLY PRN Reason: Protocol Last Admin: 03/06/17 15:45 Dose: 100 mls/hr Vancomycin HCl 1,250 mg/ (Sodium Chloride) 262.5 mls @ 166.667 mls/hr IV Q12HR MILLY Last Admin: 03/07/17 10:20 Dose: 166.667 mls/hr Insulin Human Regular 100 (units/ Sodium Chloride) 100 mls @ 1 mls/hr IV TITR MILLY; 1 UNITS/HR PRN Reason: Protocol Sodium Chloride (Nacl 0.9% 1000 Ml) 1,000 mls @ 200 mls/hr IV DIRECT MILLY Last Admin: 03/07/17 10:21 Dose: 200 mls/hr Metoclopramide HCl (Reglan) 10 mg IV Q6H PRN PRN Reason: Nausea And Vomiting Last Admin: 03/07/17 09:13 Dose: 10 mg Morphine Sulfate (Morphine) 2 mg IV Q4H PRN PRN Reason: Pain, Moderate (4-6) Last Admin: 03/06/17 06:00 Dose: 2 mg Ondansetron HCl (Zofran) 4 mg IV Q4H PRN PRN Reason: Nausea And Vomiting Last Admin: 03/07/17 04:15 Dose: 4 mg Oxycodone/Acetaminophen (Percocet 5/325) 1 tab PO Q6H PRN PRN Reason: Pain, Moderate (4-6) Last Admin: 03/07/17 07:01 Dose: 1 tab Vancomycin HCl (Vancomycin Pharmacy To Dose) 1 each IV PKCONSULT MILLY PRN Reason: Protocol Physical Examination Vital signs: Vital Signs Temp Pulse BP Pulse Ox 98.5 F 109 H 144/94 100 03/03/17 20:25 03/03/17 20:25 03/03/17 20:25 03/03/17 20:25 Results - Laboratory Findings CBC and BMP: 03/08/17 15:40 03/08/17 09:58 PT/INR, D-dimer PT 13.1 Sec. (12.2-14.9) 03/03/17 21:33 INR 0.94 (0.87-1.13) 03/03/17 21:33 Abnormal lab findings: Abnormal Labs 03/03/17 03/03/17 03/04/17 21:33 21:33 00:35 RDW 15.6 H Plt Count 445 H Lymph % (Auto) 10.2 L [place] % (Auto) Lymph # 0.8 L [place] # Seg Neutrophils % 85.4 H Seg Neutrophils # Sodium Potassium 3.5 L Chloride 95.7 L Carbon Dioxide 20 L Glucose POC Glucose 224 H Lactic Acid Alkaline Phosphatase 132 H Albumin 3.5 L Lipase 12 L 03/04/17 03/04/17 03/04/17 07:39 11:43 17:18 RDW Plt Count Lymph % (Auto) [place] % (Auto) Lymph # [place] # Seg Neutrophils % Seg Neutrophils # Sodium Potassium Chloride Carbon Dioxide Glucose POC Glucose 472 H 162 H 308 H Lactic Acid Alkaline Phosphatase Albumin Lipase 03/05/17 03/05/17 03/05/17 06:24 07:15 08:41 RDW Plt Count Lymph % (Auto) [place] % (Auto) Lymph # [place] # Seg Neutrophils % Seg Neutrophils # Sodium Potassium 3.5 L Chloride Carbon Dioxide Glucose POC Glucose 56 L 139 H Lactic Acid Alkaline Phosphatase Albumin Lipase 03/05/17 03/05/17 03/05/17 11:46 16:48 21:36 RDW Plt Count Lymph % (Auto) [place] % (Auto) Lymph # [place] # Seg Neutrophils % Seg Neutrophils # Sodium Potassium Chloride Carbon Dioxide Glucose POC Glucose 318 H 203 H 155 H Lactic Acid Alkaline Phosphatase Albumin Lipase 03/06/17 03/06/17 03/06/17 05:17 06:14 08:26 RDW 16.3 H Plt Count Lymph % (Auto) [place] % (Auto) 8.9 H Lymph # [place] # 1.0 H Seg Neutrophils % 75.7 H Seg Neutrophils # 8.3 H Sodium Potassium Chloride Carbon Dioxide Glucose POC Glucose 405 H 236 H Lactic Acid Alkaline Phosphatase Albumin Lipase 03/06/17 03/06/17 03/06/17 09:05 11:11 12:25 RDW Plt Count Lymph % (Auto) [place] % (Auto) Lymph # [place] # Seg Neutrophils % Seg Neutrophils # Sodium 136 L Potassium 5.4 H D Chloride 94.5 L Carbon Dioxide 9 L* D Glucose 255 H POC Glucose 342 H Lactic Acid 4.10 H* Alkaline Phosphatase Albumin Lipase 03/06/17 03/06/17 03/06/17 14:41 16:22 20:22 RDW Plt Count Lymph % (Auto) [place] % (Auto) Lymph # [place] # Seg Neutrophils % Seg Neutrophils # Sodium 135 L Potassium Chloride 90.0 L Carbon Dioxide 6 L* Glucose 486 H POC Glucose 280 H 215 H Lactic Acid Alkaline Phosphatase Albumin Lipase 03/06/17 03/07/17 03/07/17 21:48 05:35 06:38 RDW 16.3 H Plt Count Lymph % (Auto) [place] % (Auto) 7.4 H Lymph # [place] # Seg Neutrophils % 73.6 H Seg Neutrophils # Sodium Potassium Chloride Carbon Dioxide Glucose POC Glucose 219 H 421 H Lactic Acid Alkaline Phosphatase Albumin Lipase 03/07/17 03/07/17 06:38 09:27 RDW Plt Count Lymph % (Auto) [place] % (Auto) Lymph # [place] # Seg Neutrophils % Seg Neutrophils # Sodium 136 L Potassium Chloride 91.4 L Carbon Dioxide 5 L* Glucose 462 H POC Glucose 264 H Lactic Acid Alkaline Phosphatase Albumin Lipase
[2017-03-07] MEDS: PROTONIX IV SCH (13:47)
[2017-03-07] MEDS: D5W/0.45% NACL/KCL 20 MEQ 20 MEQ/1,000 ML BAG IV SCH ×2 (13:48→22:13)
[2017-03-07 15:19] LABS: Anion Gap 33 mmol/L; BUN/Creatinine Ratio 6; Blood Urea Nitrogen 6 mg/dL (7-17); Calcium 8.1 mg/dL (8.4-10.2); Carbon Dioxide 10 mmol/L (22-30); Chloride 100.4 mmol/L (98-107); Glucose 134 mg/dL (65-100); Potassium 3.8 mmol/L (3.6-5.0); Sodium 140 mmol/L (137-145)
[2017-03-07] MEDS: LEVAQUIN 750MG/150ML 750 MG/150 ML BAG IV SCH (17:15)
[2017-03-07 17:28] LABS: Anion Gap 30 mmol/L; BUN/Creatinine Ratio 7; Blood Urea Nitrogen 6 mg/dL (7-17); Calcium 7.9 mg/dL (8.4-10.2); Carbon Dioxide 11 mmol/L (22-30); Chloride 101.4 mmol/L (98-107); Glucose 136 mg/dL (65-100); Potassium 3.9 mmol/L (3.6-5.0); Sodium 138 mmol/L (137-145)
[2017-03-07] MEDS: LOVENOX SUB-Q SCH (22:17)
[2017-03-08] MEDS: REGLAN IV PRN ×2 (00:26→07:40)
[2017-03-08 01:09] LABS: Anion Gap 25 mmol/L; BUN/Creatinine Ratio 7; Blood Urea Nitrogen 5 mg/dL (7-17); Calcium 8.3 mg/dL (8.4-10.2); Carbon Dioxide 14 mmol/L (22-30); Chloride 101.9 mmol/L (98-107); Glucose 137 mg/dL (65-100); Sodium 136 mmol/L (137-145)
[2017-03-08 01:23] LABS: Potassium 4.9 mmol/L (3.6-5.0)
[2017-03-08] MEDS: ZOFRAN IV PRN (02:55)
[2017-03-08] MEDS: D5W/0.45% NACL/KCL 20 MEQ 20 MEQ/1,000 ML BAG IV SCH (06:46)
--- NOTE | 2017-03-08 08:55 | Progress Note ---
Assessment and Plan Assessment and plan: Diabetic ketoacidosis. Patient has very high glucose of 462, and acidosis with CO2 of 5 and anion gapof 44 therefore transferred to ICU and started on Insulin drip as per DKA protocol. Continue Insulin drip. She is improving. Anion gap decreasing. Hopefully will transfer out of ICU today. Nausea and vomiting due to DKA and gastroparesis, improving. Gastroparesis, improved. Discontinued metformin. DVT prophylaxis: on Lovenox Full code status. History Interval history: Nausea and vomiting improving Elevated blood glucose, No chest pain, No SOB Hospitalist Physical - Physical exam Narrative exam: GEN APPEARANCE : In mild distress from vomiting, HEENT: Normocephalic Atraumatic NECK : supple, no JVD LUNGS: clear to auscultation bilaterally, no rales, no wheeze HEART: S1 and S2 regular, no murmurs, rubs or gallop, ABD: Soft, no tenderness, no distension, normal bowel sounds EXT: No edema, no clubbing, no cyanosis NEURO: Awake,alert,oriented x 3, moves all extremities, non focal Psych: Not depressed - Constitutional Vitals: Temp Pulse Resp BP Pulse Ox 98.8 F 95 H 23 106/53 97 03/08/17 04:00 03/08/17 04:00 03/08/17 04:00 03/08/17 04:00 03/08/17 04:00 General appearance: Present: no acute distress, cachectic, disheveled, malodorous Results - Labs CBC & Chem 7: 03/08/17 15:40 03/08/17 09:58 Labs: Laboratory Last Values WBC 10.2 K/mm3 (4.5-11.0) 03/07/17 06:38 RBC 4.00 M/mm3 (3.65-5.03) 03/07/17 06:38 Hgb 11.4 gm/dl (10.1-14.3) 03/07/17 06:38 Hct 36.7 % (30.3-42.9) 03/07/17 06:38 MCV 92 fl (79-97) 03/07/17 06:38 MCH 29 pg (28-32) 03/07/17 06:38 MCHC 31 % (30-34) 03/07/17 06:38 RDW 16.3 % (13.2-15.2) H 03/07/17 06:38 Plt Count 328 K/mm3 (140-440) 03/07/17 06:38 Lymph % (Auto) 18.5 % (13.4-35.0) 03/07/17 06:38 [place] % (Auto) 7.4 % (0.0-7.3) H 03/07/17 06:38 Eos % (Auto) 0.1 % (0.0-4.3) 03/07/17 06:38 Baso % (Auto) 0.4 % (0.0-1.8) 03/07/17 06:38 Lymph # 1.9 K/mm3 (1.2-5.4) 03/07/17 06:38 [place] # 0.8 K/mm3 (0.0-0.8) 03/07/17 06:38 Eos # 0.0 K/mm3 (0.0-0.4) 03/07/17 06:38 Baso # 0.0 K/mm3 (0.0-0.1) 03/07/17 06:38 Seg Neutrophils % 73.6 % (40.0-70.0) H 03/07/17 06:38 Seg Neutrophils # 7.6 K/mm3 (1.8-7.7) 03/07/17 06:38 PT 13.1 Sec. (12.2-14.9) 03/03/17 21:33 INR 0.94 (0.87-1.13) 03/03/17 21:33 VBG pH 7.411 (7.320-7.420) 03/06/17 11:11 Sodium 136 mmol/L (137-145) L 03/08/17 00:30 Potassium 4.9 mmol/L (3.6-5.0) D 03/08/17 00:30 Chloride 101.9 mmol/L (98-107) 03/08/17 00:30 Carbon Dioxide 14 mmol/L (22-30) L 03/08/17 00:30 Anion Gap 25 mmol/L 03/08/17 00:30 BUN 5 mg/dL (7-17) L 03/08/17 00:30 Creatinine 0.7 mg/dL (0.7-1.2) 03/08/17 00:30 Estimated GFR > 60 ml/min 03/08/17 00:30 BUN/Creatinine Ratio 7 % 03/08/17 00:30 Glucose 137 mg/dL (65-100) H 03/08/17 00:30 POC Glucose 155 (70-105) H 03/08/17 06:23 Lactic Acid 4.10 mmol/L (0.7-2.0) H* 03/06/17 11:11 Calcium 8.3 mg/dL (8.4-10.2) L 03/08/17 00:30 Phosphorus 3.00 mg/dL (2.5-4.5) 03/07/17 06:38 Magnesium 1.90 mg/dL (1.7-2.3) 03/07/17 06:38 Total Bilirubin 0.20 mg/dL (0.1-1.2) 03/03/17 21:33 AST 29 units/L (5-40) 03/03/17 21:33 ALT 19 units/L (7-56) 03/03/17 21:33 Alkaline Phosphatase 132 units/L (35-129) H 03/03/17 21:33 Total Creatine Kinase 32 units/L (30-135) 03/05/17 21:09 CK-MB (CK-2) < 1.0 ng/mL (0.0-4.0) 03/05/17 21:09 CK-MB (CK-2) Rel Index 3.1 (0-4) 03/05/17 21:09 Troponin T < 0.010 ng/mL (0.00-0.029) 03/07/17 14:39 Total Protein 7.0 g/dL (6.3-8.2) 03/03/17 21:33 Albumin 3.5 g/dL (3.9-5) L 03/03/17 21:33 Albumin/Globulin Ratio 1.0 % 03/03/17 21:33 Lipase 12 units/L (13-60) L 03/03/17 21:33 HCG, Qual Negative (Negative) 03/03/17 21:33 Urine Color Yellow (Yellow) 03/03/17 22:41 Urine Turbidity Clear (Clear) 03/03/17 22:41 Urine pH 5.0 (5.0-7.0) 03/03/17 22:41 Ur Specific [place] 1.021 (1.003-1.030) 03/03/17 22:41 Urine Protein 30 mg/dl mg/dL (Negative) 03/03/17 22:41 Urine Glucose (UA) >=500 mg/dL (Negative) 03/03/17 22:41 Urine Ketones 80 mg/dL (Negative) 03/03/17 22:41 Urine Blood Neg (Negative) 03/03/17 22:41 Urine Nitrite Neg (Negative) 03/03/17 22:41 Ur Reducing Substances Not Reportable 03/03/17 22:41 Urine Bilirubin Neg (Negative) 03/03/17 22:41 Urine Ictotest Not Reportable 03/03/17 22:41 Urine Urobilinogen < 2.0 mg/dL (<2.0) 03/03/17 22:41 Ur Leukocyte Esterase Neg (Negative) 03/03/17 22:41 Urine WBC (Auto) 1.0 /HPF (0.0-6.0) 03/03/17 22:41 Urine RBC (Auto) 1.0 /HPF (0.0-6.0) 03/03/17 22:41 U Epithel Cells (Auto) 4.0 /HPF (0-13.0) 03/03/17 22:41 Hyaline Casts 4 /LPF 03/03/17 22:41 Urine Mucus Few /HPF 03/03/17 22:41
[2017-03-08] MEDS ORDERED: D5NS 1,000 ML IV SCH (09:00)
[2017-03-08 10:26] LABS: Anion Gap 23 mmol/L; BUN/Creatinine Ratio 4; Blood Urea Nitrogen 4 mg/dL (7-17); Calcium 8.3 mg/dL (8.4-10.2); Carbon Dioxide 16 mmol/L (22-30); Chloride 99.5 mmol/L (98-107); Glucose 178 mg/dL (65-100); Potassium 3.9 mmol/L (3.6-5.0); Sodium 135 mmol/L (137-145)
--- NOTE | 2017-03-08 13:30 | Operative Report ---
Operative Report Operative Report: EXAM: ULTRASOUND GUIDED PLACEMENT OF CENTRAL LINE CLINICAL INDICATION: PATIENT WITH A HISTORY OF DIABETES AND DKA, NO IV ACCESS DATE: 03/08/2017 PROCEDURE: Following an excellent amputation of the risks, benefits and alternatives; written informed consent was obtained. Procedure was performed at bedside in the ICU. Initial ultrasound evaluation of the right groin demonstrated a patent right common femoral vein. The patient's right groin was prepped and draped in usual sterile fashion. 1% lidocaine was used for anesthesia. Under ultrasound guidance, the right common femoral vein was cannulated with a 7 cm 18-gauge needle. A 0.035 guidewire was advanced centrally easily. The needle was removed and following serial dilation, 6 [place] lumen catheter was placed over the guidewire and advanced centrally. Nonpulsatile blood return from all 3 ports. The catheter was securely fastened to the skin using StatLock device and a sterile dressing applied. The patient has a low tolerance to pain. During the procedure, the patient moved repeatedly resulting in intermittent arterial puncture with the needle. Compression was held for 5 minutes. Patient did have a postprocedural hematoma. IMPRESSION: 1) Ultrasound guided placement of triple-lumen catheter via the right common femoral vein.
--- NOTE | 2017-03-08 13:35 | Progress Note ---
Subjective Date of service: 03/08/17 Principal diagnosis: DKA Interval history: Patient is seen today for: Seen and examined at bedside; 24hour events reviewed; nursing and respiratory care staff consulted; no adverse overnight events reported to me; Objective Vital Signs - 12hr 03/08/17 03/08/17 03/08/17 02:01 03:00 04:00 Temperature 98.8 F Pulse Rate 96 H 92 H 95 H Respiratory 26 H 19 23 Rate Blood Pressure 106/55 118/68 106/53 O2 Sat by Pulse 100 97 97 Oximetry 03/08/17 03/08/17 03/08/17 05:00 06:00 07:00 Temperature Pulse Rate 99 H 89 87 Respiratory 25 H 23 21 Rate Blood Pressure 100/50 123/70 114/65 O2 Sat by Pulse 96 97 99 Oximetry 03/08/17 03/08/17 03/08/17 08:00 08:54 09:01 Temperature 98.8 F Pulse Rate 87 105 H Respiratory 16 13 Rate Blood Pressure 112/74 112/74 O2 Sat by Pulse Oximetry 03/08/17 03/08/17 03/08/17 10:01 11:01 12:00 Temperature 98.4 F Pulse Rate 84 81 Respiratory 21 19 Rate Blood Pressure 114/65 114/65 O2 Sat by Pulse Oximetry 03/08/17 12:01 Temperature Pulse Rate 91 H Respiratory 21 Rate Blood Pressure 114/65 O2 Sat by Pulse Oximetry CBC and BMP: 03/07/17 06:38 03/08/17 09:58 ABG, PT/INR, D-dimer: PT/INR, D-dimer PT 13.1 Sec. (12.2-14.9) 03/03/17 21:33 INR 0.94 (0.87-1.13) 03/03/17 21:33 Abnormal lab findings: Abnormal Labs 03/03/17 03/03/17 03/04/17 21:33 21:33 00:35 RDW 15.6 H Plt Count 445 H Lymph % (Auto) 10.2 L [place] % (Auto) Lymph # 0.8 L [place] # Seg Neutrophils % 85.4 H Seg Neutrophils # Sodium Potassium 3.5 L Chloride 95.7 L Carbon Dioxide 20 L BUN Glucose POC Glucose 224 H Lactic Acid Calcium Alkaline Phosphatase 132 H Albumin 3.5 L Lipase 12 L 03/04/17 03/04/1717 07:39 11:43 17:18 RDW Plt Count Lymph % (Auto) [place] % (Auto) Lymph # [place] # Seg Neutrophils % Seg Neutrophils # Sodium Potassium Chloride Carbon Dioxide BUN Glucose POC Glucose 472 H 162 H 308 H Lactic Acid Calcium Alkaline Phosphatase Albumin Lipase 03/05/17 03/05/17 03/05/17 06:24 07:15 08:41 RDW Plt Count Lymph % (Auto) [place] % (Auto) Lymph # [place] # Seg Neutrophils % Seg Neutrophils # Sodium Potassium 3.5 L Chloride Carbon Dioxide BUN Glucose POC Glucose 56 L 139 H Lactic Acid Calcium Alkaline Phosphatase Albumin Lipase 03/05/17 03/05/17 03/05/17 11:46 16:48 21:36 RDW Plt Count Lymph % (Auto) [place] % (Auto) Lymph # [place] # Seg Neutrophils % Seg Neutrophils # Sodium Potassium Chloride Carbon Dioxide BUN Glucose POC Glucose 318 H 203 H 155 H Lactic Acid Calcium Alkaline Phosphatase Albumin Lipase 03/06/17 03/06/17 03/06/17 05:17 06:14 08:26 RDW 16.3 H Plt Count Lymph % (Auto) [place] % (Auto) 8.9 H Lymph # [place] # 1.0 H Seg Neutrophils % 75.7 H Seg Neutrophils # 8.3 H Sodium Potassium Chloride Carbon Dioxide BUN Glucose POC Glucose 405 H 236 H Lactic Acid Calcium Alkaline Phosphatase Albumin Lipase 03/06/17 03/06/17 03/06/17 09:05 11:11 12:25 RDW Plt Count Lymph % (Auto) [place] % (Auto) Lymph # [place] # Seg Neutrophils % Seg Neutrophils # Sodium 136 L Potassium 5.4 H D Chloride 94.5 L Carbon Dioxide 9 L* D BUN Glucose 255 H POC Glucose 342 H Lactic Acid 4.10 H* Calcium Alkaline Phosphatase Albumin Lipase 03/06/17 03/06/17 03/06/17 14:41 16:22 20:22 RDW Plt Count Lymph % (Auto) [place] % (Auto) Lymph # [place] # Seg Neutrophils % Seg Neutrophils # Sodium 135 L Potassium Chloride 90.0 L Carbon Dioxide 6 L* BUN Glucose 486 H POC Glucose 280 H 215 H Lactic Acid Calcium Alkaline Phosphatase Albumin Lipase 03/06/17 03/07/17 03/07/17 21:48 05:35 06:38 RDW 16.3 H Plt Count Lymph % (Auto) [place] % (Auto) 7.4 H Lymph # [place] # Seg Neutrophils % 73.6 H Seg Neutrophils # Sodium Potassium Chloride Carbon Dioxide BUN Glucose POC Glucose 219 H 421 H Lactic Acid Calcium Alkaline Phosphatase Albumin Lipase 03/07/17 03/07/17 03/07/17 06:38 09:27 12:01 RDW Plt Count Lymph % (Auto) [place] % (Auto) Lymph # [place] # Seg Neutrophils % Seg Neutrophils # Sodium 136 L Potassium Chloride 91.4 L Carbon Dioxide 5 L* BUN Glucose 462 H POC Glucose 264 H 256 H Lactic Acid Calcium Alkaline Phosphatase Albumin Lipase 03/07/17 03/07/17 03/07/17 13:18 14:28 14:39 RDW Plt Count Lymph % (Auto) [place] % (Auto) Lymph # [place] # Seg Neutrophils % Seg Neutrophils # Sodium Potassium Chloride Carbon Dioxide 10 L BUN 6 L Glucose 134 H POC Glucose 215 H 140 H Lactic Acid Calcium 8.1 L Alkaline Phosphatase Albumin Lipase 03/07/17 03/07/17 03/07/17 15:15 16:13 16:57 RDW Plt Count Lymph % (Auto) [place] % (Auto) Lymph # [place] # Seg Neutrophils % Seg Neutrophils # Sodium Potassium Chloride Carbon Dioxide 11 L BUN 6 L Glucose 136 H POC Glucose 144 H 134 H Lactic Acid Calcium 7.9 L Alkaline Phosphatase Albumin Lipase 03/07/17 03/07/17 03/07/17 17:00 18:08 18:56 RDW Plt Count Lymph % (Auto) [place] % (Auto) Lymph # [place] # Seg Neutrophils % Seg Neutrophils # Sodium Potassium Chloride Carbon Dioxide BUN Glucose POC Glucose 154 H 153 H 142 H Lactic Acid Calcium Alkaline Phosphatase Albumin Lipase 03/07/17 03/07/17 03/07/17 20:25 21:07 22:01 RDW Plt Count Lymph % (Auto) [place] % (Auto) Lymph # [place] # Seg Neutrophils % Seg Neutrophils # Sodium Potassium Chloride Carbon Dioxide BUN Glucose POC Glucose 147 H 134 H 142 H Lactic Acid Calcium Alkaline Phosphatase Albumin Lipase 03/07/17 03/08/17 03/08/17 23:04 00:22 00:30 RDW Plt Count Lymph % (Auto) [place] % (Auto) Lymph # [place] # Seg Neutrophils % Seg Neutrophils # Sodium 136 L Potassium Chloride Carbon Dioxide 14 L BUN 5 L Glucose 137 H POC Glucose 149 H 149 H Lactic Acid Calcium 8.3 L Alkaline Phosphatase Albumin Lipase 03/08/17 03/08/17 03/08/17 01:07 02:05 05:22 RDW Plt Count Lymph % (Auto) [place] % (Auto) Lymph # [place] # Seg Neutrophils % Seg Neutrophils # Sodium Potassium Chloride Carbon Dioxide BUN Glucose POC Glucose 165 H 143 H 174 H Lactic Acid Calcium Alkaline Phosphatase Albumin Lipase 03/08/17 03/08/17 03/08/17 06:23 08:12 09:58 RDW Plt Count Lymph % (Auto) [place] % (Auto) Lymph # [place] # Seg Neutrophils % Seg Neutrophils # Sodium 135 L Potassium Chloride Carbon Dioxide 16 L BUN 4 L Glucose 178 H POC Glucose 155 H 194 H Lactic Acid Calcium 8.3 L Alkaline Phosphatase Albumin Lipase
[2017-03-08] MEDS: PROTONIX IV SCH (13:49)
[2017-03-08] MEDS: VANCOMYCIN 1,250 MG in NACL 0.9% 250ML 250 ML IV SCH ×2 (14:01→23:00)
[2017-03-08 16:01] LABS: Hematocrit TNR % (30.3-42.9)
[2017-03-08 16:02] LABS: White Blood Count TNR K/mm3 (4.5-11.0)
[2017-03-08 16:03] LABS: Hemoglobin TNR gm/dl (10.1-14.3); Mean Corpuscular HGB Conc TNR % (30-34); Mean Corpuscular Hemoglobin TNR pg (28-32); Mean Corpuscular Volume TNR fl (79-97); Mean Platelet Volume TNR fl (6-12); Platelet Count TNR K/mm3 (140-440); Red Blood Count TNR M/mm3 (3.65-5.03); Red Cell Distribution Width TNR % (13.2-15.2)
[2017-03-08 16:20] LABS: Anion Gap 19 mmol/L; BUN/Creatinine Ratio 4; Blood Urea Nitrogen 3 mg/dL (7-17); Carbon Dioxide 20 mmol/L (22-30); Chloride 102.3 mmol/L (98-107); Glucose 173 mg/dL (65-100); Potassium 3.2 mmol/L (3.6-5.0); Sodium 138 mmol/L (137-145)
[2017-03-08] MEDS: LEVAQUIN 750MG/150ML 750 MG/150 ML BAG IV SCH (17:11)
[2017-03-08] MEDS: NS/KCL 20MEQ 20 MEQ/1,000 ML BAG IV SCH (18:25)
--- NOTE | 2017-03-08 20:02 | Gastroenterology Progress Note ---
Assessment and Plan - Patient Problems (1) Gastroparesis Current Visit: Yes Status: Acute Plan to address problem: - Advance to full liquid diet. - Continue reglan scheduled for now, but transition to PRN on discharge. - OK to d/c home per our service when tolerating PO. - Will sign off; please call if needed. Subjective Date of service: 03/08/17 Principal diagnosis: Gastroparesis Interval history: The patient is doing well without N/V and is tolerating clears. Her abdominal pain is at her baseline. She has no CP or SOB. Objective - Constitutional Vitals: Temp Pulse Resp BP Pulse Ox 99.0 F 94 H 13 109/73 99 03/08/17 16:00 03/08/17 18:00 03/08/17 18:00 03/08/17 18:00 03/08/17 07:00 General appearance: no acute distress - EENT Eyes: PERRL, EOM intact - Respiratory Respiratory effort: normal Respiratory: bilateral: CTA - Cardiovascular Rhythm: regular Heart Sounds: Present: S1 & S2 - Gastrointestinal General gastrointestinal: Present: soft, non-tender, non-distended - Labs CBC & Chem 7: 03/08/17 15:40 03/08/17 15:40 Labs: Laboratory Results - last 24 hr 03/07/17 03/07/17 03/07/17 13:18 14:28 15:15 WBC RBC Hgb Hct MCV MCH MCHC RDW Plt Count Sodium Potassium Chloride Carbon Dioxide Anion Gap BUN Creatinine Estimated GFR BUN/Creatinine Ratio Glucose POC Glucose 215 H 140 H 144 H Calcium 03/07/17 03/07/17 03/07/17 16:13 17:00 18:08 WBC RBC Hgb Hct MCV MCH MCHC RDW Plt Count Sodium Potassium Chloride Carbon Dioxide Anion Gap BUN Creatinine Estimated GFR BUN/Creatinine Ratio Glucose POC Glucose 134 H 154 H 153 H Calcium 03/07/17 03/07/17 03/07/17 18:56 20:25 21:07 WBC RBC Hgb Hct MCV MCH MCHC RDW Plt Count Sodium Potassium Chloride Carbon Dioxide Anion Gap BUN Creatinine Estimated GFR BUN/Creatinine Ratio Glucose POC Glucose 142 H 147 H 134 H Calcium 03/07/17 03/07/17 03/08/17 22:01 23:04 00:22 WBC RBC Hgb Hct MCV MCH MCHC RDW Plt Count Sodium Potassium Chloride Carbon Dioxide Anion Gap BUN Creatinine Estimated GFR BUN/Creatinine Ratio Glucose POC Glucose 142 H 149 H 149 H Calcium 03/08/17 03/08/17 03/08/17 00:30 01:07 02:05 WBC RBC Hgb Hct MCV MCH MCHC RDW Plt Count Sodium 136 L Potassium 4.9 D Chloride 101.9 Carbon Dioxide 14 L Anion Gap 25 BUN 5 L Creatinine 0.7 Estimated GFR > 60 BUN/Creatinine Ratio 7 Glucose 137 H POC Glucose 165 H 143 H Calcium 8.3 L 03/08/17 03/08/17 03/08/17 05:22 06:23 08:12 WBC RBC Hgb Hct MCV MCH MCHC RDW Plt Count Sodium Potassium Chloride Carbon Dioxide Anion Gap BUN Creatinine Estimated GFR BUN/Creatinine Ratio Glucose POC Glucose 174 H 155 H 194 H Calcium 03/08/17 03/08/17 03/08/17 09:58 15:40 15:40 WBC TNR RBC TNR Hgb TNR Hct TNR MCV TNR MCH TNR MCHC TNR RDW TNR Plt Count TNR Sodium 135 L 138 Potassium 3.9 D 3.2 L Chloride 99.5 102.3 Carbon Dioxide 16 L 20 L Anion Gap 23 19 BUN 4 L 3 L Creatinine 0.9 0.7 Estimated GFR > 60 > 60 BUN/Creatinine Ratio 4 4 Glucose 178 H 173 H POC Glucose Calcium 8.3 L 8.0 L
[2017-03-08] MEDS: LOVENOX SUB-Q SCH (23:00)
[2017-03-08] MEDS: NOVOLOG SUB-Q SCH (23:19)
[2017-03-08] MEDS: PERCOCET 5/325 PO PRN (23:56)
[2017-03-09] MEDS: PERCOCET 5/325 PO PRN (06:48)
[2017-03-09] MEDS: NS/KCL 20MEQ 20 MEQ/1,000 ML BAG IV SCH (07:23)
[2017-03-09 07:55] LABS: Anion Gap 16 mmol/L; BUN/Creatinine Ratio 4; Blood Urea Nitrogen 3 mg/dL (7-17); Calcium 8.4 mg/dL (8.4-10.2); Carbon Dioxide 21 mmol/L (22-30); Chloride 107.9 mmol/L (98-107); Glucose 53 mg/dL (65-100); Sodium 142 mmol/L (137-145)
[2017-03-09] MEDS: NOVOLOG SUB-Q SCH ×3 (07:58→16:40)
[2017-03-09] MEDS: KCL 10MEQ/100ML 10 MEQ/100 ML BAG IV SCH ×3 (09:29→12:28)
[2017-03-09] MEDS: TYLENOL PO PRN ×2 (09:54→16:45)
[2017-03-09] MEDS ORDERED: PROTONIX PO SCH (10:00)
[2017-03-09] MEDS ORDERED: LEVAQUIN PO SCH (10:00)
--- NOTE | 2017-03-09 13:36 | Progress Note ---
Subjective Date of service: 03/09/17 Principal diagnosis: DKA; Gastroparesis Interval history: Patient is seen today for: DKA; Gastroparesis with N&V Seen and examined at bedside; 24hour events reviewed; nursing and respiratory care staff consulted; no adverse overnight events reported to me; Objective Vital Signs - 12hr 03/09/17 03/09/17 03/09/17 04:00 04:55 07:17 Temperature 98.5 F 98.8 F 98.2 F Pulse Rate 88 96 H Pulse Rate [ 86 Left Radial] Respiratory 18 20 16 Rate Blood Pressure 118/78 116/75 113/78 O2 Sat by Pulse 98 99 Oximetry CBC and BMP: 03/08/17 15:40 03/09/17 07:11 ABG, PT/INR, D-dimer: PT/INR, D-dimer PT 13.1 Sec. (12.2-14.9) 03/03/17 21:33 INR 0.94 (0.87-1.13) 03/03/17 21:33 Abnormal lab findings: Abnormal Labs 03/03/17 03/03/17 03/04/17 21:33 21:33 00:35 RDW 15.6 H Plt Count 445 H Lymph % (Auto) 10.2 L [place] % (Auto) Lymph # 0.8 L [place] # Seg Neutrophils % 85.4 H Seg Neutrophils # Sodium Potassium 3.5 L Chloride 95.7 L Carbon Dioxide 20 L BUN Glucose POC Glucose 224 H Lactic Acid Calcium Alkaline Phosphatase 132 H Albumin 3.5 L Lipase 12 L 03/04/17 03/04/17 03/04/17 07:39 11:43 17:18 RDW Plt Count Lymph % (Auto) [place] % (Auto) Lymph # [place] # Seg Neutrophils % Seg Neutrophils # Sodium Potassium Chloride Carbon Dioxide BUN Glucose POC Glucose 472 H 162 H 308 H Lactic Acid Calcium Alkaline Phosphatase Albumin Lipase 03/05/17 03/05/17 03/05/17 06:24 07:15 08:41 RDW Plt Count Lymph % (Auto) [place] % (Auto) Lymph # [place] # Seg Neutrophils % Seg Neutrophils # Sodium Potassium 3.5 L Chloride Carbon Dioxide BUN Glucose POC Glucose 56 L 139 H Lactic Acid Calcium Alkaline Phosphatase Albumin Lipase 03/05/17 03/05/17 03/05/17 11:46 16:48 21:36 RDW Plt Count Lymph % (Auto) [place] % (Auto) Lymph # [place] # Seg Neutrophils % Seg Neutrophils # Sodium Potassium Chloride Carbon Dioxide BUN Glucose POC Glucose 318 H 203 H 155 H Lactic Acid Calcium Alkaline Phosphatase Albumin Lipase 03/06/17 03/06/17 03/06/17 05:17 06:14 08:26 RDW 16.3 H Plt Count Lymph % (Auto) [place] % (Auto) 8.9 H Lymph # [place] # 1.0 H Seg Neutrophils % 75.7 H Seg Neutrophils # 8.3 H Sodium Potassium Chloride Carbon Dioxide BUN Glucose POC Glucose 405 H 236 H Lactic Acid Calcium Alkaline Phosphatase Albumin Lipase 03/06/17 03/06/17 03/06/17 09:05 11:11 12:25 RDW Plt Count Lymph % (Auto) [place] % (Auto) Lymph # [place] # Seg Neutrophils % Seg Neutrophils # Sodium 136 L Potassium 5.4 H D Chloride 94.5 L Carbon Dioxide 9 L* D BUN Glucose 255 H POC Glucose 342 H Lactic Acid 4.10 H* Calcium Alkaline Phosphatase Albumin Lipase 03/06/17 03/06/17 03/06/17 14:41 16:22 20:22 RDW Plt Count Lymph % (Auto) [place] % (Auto) Lymph # [place] # Seg Neutrophils % Seg Neutrophils # Sodium 135 L Potassium Chloride 90.0 L Carbon Dioxide 6 L* BUN Glucose 486 H POC Glucose 280 H 215 H Lactic Acid Calcium Alkaline Phosphatase Albumin Lipase 03/06/17 03/07/17 03/07/17 21:48 05:35 06:38 RDW 16.3 H Plt Count Lymph % (Auto) [place] % (Auto) 7.4 H Lymph # [place] # Seg Neutrophils % 73.6 H Seg Neutrophils # Sodium Potassium Chloride Carbon Dioxide BUN Glucose POC Glucose 219 H 421 H Lactic Acid Calcium Alkaline Phosphatase Albumin Lipase 03/07/17 03/07/17 03/07/17 06:38 09:27 12:01 RDW Plt Count Lymph % (Auto) [place] % (Auto) Lymph # [place] # Seg Neutrophils % Seg Neutrophils # Sodium 136 L Potassium Chloride 91.4 L Carbon Dioxide 5 L* BUN Glucose 462 H POC Glucose 264 H 256 H Lactic Acid Calcium Alkaline Phosphatase Albumin Lipase 03/07/17 03/07/17 03/07/17 13:18 14:28 14:39 RDW Plt Count Lymph % (Auto) [place] % (Auto) Lymph # [place] # Seg Neutrophils % Seg Neutrophils # Sodium Potassium Chloride Carbon Dioxide 10 L BUN 6 L Glucose 134 H POC Glucose 215 H 140 H Lactic Acid Calcium 8.1 L Alkaline Phosphatase Albumin Lipase 03/07/17 03/07/17 03/07/17 15:15 16:13 16:57 RDW Plt Count Lymph % (Auto) [place] % (Auto) Lymph # [place] # Seg Neutrophils % Seg Neutrophils # Sodium Potassium Chloride Carbon Dioxide 11 L BUN 6 L Glucose 136 H POC Glucose 144 H 134 H Lactic Acid Calcium 7.9 L Alkaline Phosphatase Albumin Lipase 03/07/17 03/07/17 03/07/17 17:00 18:08 18:56 RDW Plt Count Lymph % (Auto) [place] % (Auto) Lymph # [place] # Seg Neutrophils % Seg Neutrophils # Sodium Potassium Chloride Carbon Dioxide BUN Glucose POC Glucose 154 H 153 H 142 H Lactic Acid Calcium Alkaline Phosphatase Albumin Lipase 03/07/17 03/07/17 03/07/17 20:25 21:07 22:01 RDW Plt Count Lymph % (Auto) [place] % (Auto) Lymph # [place] # Seg Neutrophils % Seg Neutrophils # Sodium Potassium Chloride Carbon Dioxide BUN Glucose POC Glucose 147 H 134 H 142 H Lactic Acid Calcium Alkaline Phosphatase Albumin Lipase 03/07/17 03/08/17 03/08/17 23:04 00:22 00:30 RDW Plt Count Lymph % (Auto) [place] % (Auto) Lymph # [place] # Seg Neutrophils % Seg Neutrophils # Sodium 136 L Potassium Chloride Carbon Dioxide 14 L BUN 5 L Glucose 137 H POC Glucose 149 H 149 H Lactic Acid Calcium 8.3 L Alkaline Phosphatase Albumin Lipase 03/08/17 03/08/17 03/08/17 01:07 02:05 02:50 RDW Plt Count Lymph % (Auto) [place] % (Auto) Lymph # [place] # Seg Neutrophils % Seg Neutrophils # Sodium Potassium Chloride Carbon Dioxide BUN Glucose POC Glucose 165 H 143 H 141 H Lactic Acid Calcium Alkaline Phosphatase Albumin Lipase 03/08/17 03/08/17 03/08/17 04:30 05:22 06:23 RDW Plt Count Lymph % (Auto) [place] % (Auto) Lymph # [place] # Seg Neutrophils % Seg Neutrophils # Sodium Potassium Chloride Carbon Dioxide BUN Glucose POC Glucose 125 H 174 H 155 H Lactic Acid Calcium Alkaline Phosphatase Albumin Lipase 03/08/17 03/08/17 03/08/17 07:13 08:12 09:27 RDW Plt Count Lymph % (Auto) [place] % (Auto) Lymph # [place] # Seg Neutrophils % Seg Neutrophils # Sodium Potassium Chloride Carbon Dioxide BUN Glucose POC Glucose 128 H 194 H 149 H Lactic Acid Calcium Alkaline Phosphatase Albumin Lipase 03/08/17 03/08/17 03/08/17 09:58 10:08 11:44 RDW Plt Count Lymph % (Auto) [place] % (Auto) Lymph # [place] # Seg Neutrophils % Seg Neutrophils # Sodium 135 L Potassium Chloride Carbon Dioxide 16 L BUN 4 L Glucose 178 H POC Glucose 182 H 148 H Lactic Acid Calcium 8.3 L Alkaline Phosphatase Albumin Lipase 03/08/17 03/08/17 03/08/17 13:34 14:57 15:40 RDW Plt Count Lymph % (Auto) [place] % (Auto) Lymph # [place] # Seg Neutrophils % Seg Neutrophils # Sodium Potassium 3.2 L Chloride Carbon Dioxide 20 L BUN 3 L Glucose 173 H POC Glucose 144 H 204 H Lactic Acid Calcium 8.0 L Alkaline Phosphatase Albumin Lipase 03/08/17 03/08/17 03/08/17 17:29 21:27 23:19 RDW Plt Count Lymph % (Auto) [place] % (Auto) Lymph # [place] # Seg Neutrophils % Seg Neutrophils # Sodium Potassium Chloride Carbon Dioxide BUN Glucose POC Glucose 158 H 121 H 131 H Lactic Acid Calcium Alkaline Phosphatase Albumin Lipase 03/09/17 03/09/17 03/09/17 06:25 06:55 07:11 RDW Plt Count Lymph % (Auto) [place] % (Auto) Lymph # [place] # Seg Neutrophils % Seg Neutrophils # Sodium Potassium 3.0 L Chloride 107.9 H Carbon Dioxide 21 L BUN 3 L Glucose 53 L POC Glucose 50 L 53 L Lactic Acid Calcium Alkaline Phosphatase Albumin Lipase 03/09/17 03/09/17 09:56 11:25 RDW Plt Count Lymph % (Auto) [place] % (Auto) Lymph # [place] # Seg Neutrophils % Seg Neutrophils # Sodium Potassium Chloride Carbon Dioxide BUN Glucose POC Glucose 246 H 252 H Lactic Acid Calcium Alkaline Phosphatase Albumin Lipase
[2017-03-09] MEDS: VANCOMYCIN 1,250 MG in NACL 0.9% 250ML 250 ML IV SCH (15:52)
[2017-03-09 15:59] VITALS: BP 109/61
--- NOTE | 2017-03-09 16:49 | Discharge Summary ---
Providers - Providers Date of Admission: 03/04/17 02:21 Date of discharge: 03/09/17 Attending physician: MARISELA ALAS 03/06/17 13:11 Consult to Physician [CONS] Routine Consulting Provider: AARON WHALEY Reason For Exam: hematemesis Place consult to:: DR. Natalee ROBISON Notified:: DR. 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 moeller Notified:: office Phone number called:: Was contact made?: Yes If yes, spoke with:: tita Time called:: 09:38 03/08/17 11:32 Consult to Physician [CONS] Routine Consulting Provider: LAILA LOUIE Reason For Exam: iv access, central line pls Place consult to:: DR. LOUIE Notified:: DR. 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 In ED her glucose was 85. She was put on iv fluids, Zofran and admitted. GI Physician was consulted and was contemplating EGD if no improvement. her glucose level increased to 486, CO2 down to 6 with high anion gap of 44. She was diagnosed with diabetic ketoacidosis transferred to ICU and started on Insulin drip, iv fluids. Her glucose improved, Insuin drip weaned off and she was started on subcut Novolin 70/30 and transferred back to medical floor. Nausea and vomiting also resolved. She was then discharged home on on Metoclopramide. Total time spent on discharge, 34 mins. Disposition: DC-01 TO HOME OR SELFCARE - Discharge Diagnoses (1) Hypokalemia Status: Acute (2) Hyponatremia Status: Acute (3) DKA (diabetic ketoacidoses) Status: Acute (4) Gastroparesis Status: Acute (5) Non-compliance Status: Chronic Core Measure Documentation - Palliative Care Palliative Care/ Comfort Measures: Not Applicable - Core Measures Any of the following diagnoses?: none Exam - Physical Exam Narrative exam: GEN APPEARANCE : Not in acute distress, HEENT: Normocephalic Atraumatic NECK : supple, no JVD LUNGS: clear to auscultation bilaterally, no rales, no wheeze HEART: S1 and S2 regular, no murmurs, rubs or gallop, ABD: Soft, no tenderness, no distension, normal bowel sounds EXT: No edema, no clubbing, no cyanosis NEURO: Awake,alert,oriented x 3, moves all extremities, non focal Psych: Normal mood - Constitutional Vitals: Temp Pulse Resp BP Pulse Ox 98.6 F 91 H 16 109/61 99 03/09/17 15:27 03/09/17 15:27 03/09/17 15:27 03/09/17 15:27 03/09/17 15:27 Plan Activity: no restrictions Diet: low fat, low cholesterol, diabetic Additional Instructions: 1.Follow up with PCP or [facility] in 1 week Follow up with: PRIMARY CARE, [Primary Care Provider] - 7 Days Prescriptions: Famotidine [Pepcid] 20 mg PO BID #30 tablet Gabapentin [Neurontin] 300 mg PO TID #90 capsule Metoclopramide HCl [Metoclopramide ODT TAB] 5 mg PO Q6HR #20 tab
[2017-03-09] MEDS ORDERED: REGLAN PO PRN (16:50)
[2017-03-09] MEDS ORDERED: TRIPLE ANTIBIOTIC TP ONE (17:09)
--- NOTE | 2017-03-10 06:57 | Consultation ---
PULMONARY CRITICAL CARE EVALUATION NOTE REQUESTING PHYSICIAN: Larry Cason MD REASON FOR CONSULTATION: Diabetic ketoacidosis, need for IV insulin administration and ICU admission. Please note this is a late dictation, the patient was seen 03/07/2017. CHIEF COMPLAINT AND HISTORY OF PRESENT ILLNESS: The patient is a 21-year-old female with past medical history significant for diabetes since the age of 3 with complications, came into the ER complaining of gastroparesis. She does have history of medication noncompliance. She was admitted to the medical floor for management. However, on the medical floor, her blood sugars were difficult to control. It is unclear if she was on any home insulin therapy as a result of the gap arising to about 44 and CO2 dropping and essentially with diabetic ketoacidosis, she was transferred to the intensive care unit when I stopped by to see her. She was rested in bed, still complained of some abdominal pain, but no overt nausea at the time I saw her, she had nausea and vomiting prior. Denied aspiration. She denied chest pain. She denied palpitations. She admits to not taking her medications. She is on home metformin, not on home insulin therapy. That is as much of the history of presentation as I have. PAST MEDICAL HISTORY: Diabetes and medical noncompliance. PAST SURGICAL HISTORY: Denied. MEDICATIONS: At the time I stopped by to see her, pertinent medications she was on insulin drip, I believe at 4 units per hour; Levaquin 750 mg IV daily; p.r.n. albuterol treatments; Reglan 10 mg IV q.6 hours p.r.n. nausea and vomiting as well as Zofran 4 mg IV q.4 hours p.r.n. nausea and vomiting. She was on vancomycin 1.25 g IV q.12 hours. ALLERGIES: PENICILLIN AND BACTRIM, nature of this allergy is unknown. DIET: She is a well-built female, no significant weight loss or gain in the preceding few weeks to months. FAMILY AND SOCIAL HISTORY: Lives in the community. There is a history of diabetes and hypertension in the family. Denies tobacco, alcohol, illicit drug use or abuse. REVIEW OF SYSTEMS: Complete 13-review of systems obtained. Her main complaint was abdominal pain, nausea and vomiting. Pertinent positives and/or negatives as in body of history above, otherwise noncontributory. PHYSICAL EXAMINATION: On examination on presentation: VITAL SIGNS: She was afebrile, temperature 98.5, pulse 109, respiratory rate 21, blood pressure 144/94, oxygen sats 100%, and inspired oxygen concentration was not recorded. GENERAL: A well-built female, lying in bed, grimacing intermittently. Breathing is nonlabored. She is normocephalic, atraumatic in mild to moderate nonrespiratory distress. HEAD, EYES, EARS, NOSE, AND THROAT: She is anicteric. No conjunctival erythema. No gross jugular venous distention, no thyromegaly. Oropharynx is a Mallampati #2 oropharynx with mild oropharyngeal dryness. Grossly, no palpable lymph nodes in the supraclavicular or submandibular lymph node chains. LUNGS: Auscultation of both lung sullivan unremarkable. Lungs are clear bilaterally. HEART: Heart sounds 1 and 2 are heard. They are regular in rate and rhythm at the time of my evaluation. No rubs, no murmurs. ABDOMEN: Soft, flat. Bowel sounds positive. Mildly tender diffusely. No palpable hepatosplenomegaly. EXTREMITIES: Without overt digital clubbing, no cyanosis, no pedal edema. Dorsalis pedis pulses are palpable bilaterally. NEUROLOGIC: Pupils are equal, round, about 3-4 mm, reactive to light. Extraocular muscle movements are intact. She moves all 4 extremities spontaneously. The skin is of normal turgor, no rash, no cellulitis. LABORATORY DATA: White cell count 10,200, hemoglobin 11.4, hematocrit 36.7, and platelets 328. No manual differential. Serum sodium 136, potassium 4.2, chloride 91, bicarbonate was 5, BUN was 10, creatinine 1.0, and glucose 462. Magnesium and phosphorus were within normal limits. At admission, she did not have any significant elevation , her gap was heading that way, gap of 28 at that time. Urine test was negative at presentation. Microbiology studies, none. Chest x-ray was done at admission 03/03/2017. I have reviewed the chest x-ray and it is rotated slightly to the left, but otherwise is a normal chest x-ray. ASSESSMENT AND PLAN: 1. Diabetic ketoacidosis. 2. Medication noncompliance. 3. Uncontrolled diabetes with complications of gastroparesis. 4. Intractable nausea and vomiting. PLAN: Continue IV insulin therapy. We will follow the DKA protocol. Better medication compliance has been counseled. Continue antiemetics as necessary. Keep her n.p.o. for now. I will suggest that we deescalate antibiotic therapy, it is really unclear what is being treated. In the meantime, I will order a CRP level and lactic acid level and trend as necessary. She is appropriately on GI prophylaxis. She is on DVT prophylaxis also. Flu and pneumonia vaccination will be per protocol. Thank you very much for the consult. We will follow along and make further recommendations as picture progresses/becomes clearer. JOB# [id number] BILL/IRAIS
== END 2017-03-09 18:25 | disposition home or self-care (01) | DRG 73 ==
LOC: ED 18:40 → 3A 03-04 02:21 → CC1 03-07 11:10 → 3A 03-08 22:11
PROVIDERS: ADMIT Internal Medicine; ATTEND Internal Medicine
PROC: 02HV33Z Insertion of Infusion Device into Superior Vena Cava, Percutaneous Approach (ICD-10-PCS; principal; 2017-03-08)
PROC: B548ZZA Ultrasonography of Superior Vena Cava, Guidance (ICD-10-PCS; 2017-03-08)
DX: E10.43 Type 1 diabetes mellitus with diabetic autonomic (poly)neuropathy (principal); K85.90 Acute pancreatitis without necrosis or infection, unspecified; E10.10 Type 1 diabetes mellitus with ketoacidosis without coma; K31.84 Gastroparesis; K92.0 Hematemesis; K20.9 Esophagitis, unspecified; Z91.14 Patient's other noncompliance with medication regimen; Z79.4 Long term (current) use of insulin; Z88.0 Allergy status to penicillin; Z88.2 Allergy status to sulfonamides; Z86.14 Personal history of Methicillin resistant Staphylococcus aureus infection; Z79.899 Other long term (current) drug therapy; Z83.3 Family history of diabetes mellitus; Z82.49 Family history of ischemic heart disease and other diseases of the circulatory system
CPT/HCPCS: 36415; 71010; 74177; 80048; 80053; 81001; 82140; 82550; 82553; 82805; 82962; 83690; 83735; 84100; 84132; 84484; 84703; 85025; 85027; 85610; 93005; 93010; 96361; 96374; 96375; 96376; A6250; C9113; J1170; J1200; J1650; J1815; J1956; J2270; J2405; J2765; J3370; J3480; J7030; J7040; J7042; J7050; Q9967

== ENCOUNTER 2017-04-17 07:04 | Emergency (ER) | payer OTHER ==
[2017-04-17 08:26] VITALS: BP 135/93
[2017-04-17 10:35] LABS: Basophils # (Auto) 0.1 K/mm3 (0.0-0.1); Basophils % (Auto) 1.2 % (0.0-1.8); Eosinophils # (Auto) 0.1 K/mm3 (0.0-0.4); Eosinophils % (Auto) 1.1 % (0.0-4.3); Hematocrit 33.6 % (30.3-42.9); Hemoglobin 10.9 gm/dl (10.1-14.3); Lymphocytes # (Auto) 1.5 K/mm3 (1.2-5.4); Lymphocytes % (Auto) 29.6 % (13.4-35.0); Mean Corpuscular HGB Conc 33 % (30-34); Mean Corpuscular Hemoglobin 29 pg (28-32); Mean Corpuscular Volume 88 fl (79-97); Monocytes # (Auto) 0.5 K/mm3 (0.0-0.8); Platelet Count 342 K/mm3 (140-440); Red Blood Count 3.81 M/mm3 (3.65-5.03); Red Cell Distribution Width 17.3 % (13.2-15.2)
[2017-04-17 10:59] LABS: BUN/Creatinine Ratio 24; Blood Urea Nitrogen 12 mg/dL (7-17); Hemolysis Index 12
[2017-04-17 13:07] LABS: INR 0.85 (0.87-1.13); Partial Thromboplastin Time 20.6 Sec. (24.2-36.6)
== END 2017-04-17 19:25 | disposition left against medical advice (07) ==
LOC: ED 07:04
DX: M79.606 Pain in leg, unspecified (principal); Z53.21 Procedure and treatment not carried out due to patient leaving prior to being seen by health care provider
CPT/HCPCS: 36415; 80048; 82550; 83880; 84703; 85025; 85610; 85730; 93970

== ENCOUNTER 2018-01-26 11:39 | Emergency (ER) | payer SELFPAY ==
[2018-01-26] MEDS ORDERED: ZOFRAN ODT PO ONE (12:08)
[2018-01-26] MEDS ORDERED: NACL 0.9% 1000 ML 1,000 ML IV ONE (12:51)
--- NOTE | 2018-01-26 12:52 | Emergency Department Report ---
ED Medical Clearance HPI - General Chief complaint: Hyperglycemia Stated complaint: N/V Time Seen by Provider: 01/26/18 12:49 Source: EMS Mode of arrival: Ambulatory - History of Present Illness -: Gradual Alledged Intoxication: No Traumatic Symptoms: denies traumatic injury Associated Symptoms: nausea/vomiting. denies: chest pain, shortness of breath, palpitations, diaphoresis, confusion, cough, fever/chills, headaches, anorexia, malaise, rash, seizure, syncope, weakness Treatments Prior to Arrival: none Home medications: Home Medications Medication Instructions Recorded Confirmed Last Taken Insulin Aspart [NovoLOG 100 0 units .ROUTE AC 03/04/15 03/04/17 12/07/16 UNITS/ML VIAL] Previous Rx's Medication Instructions Recorded Last Taken Type Insulin NPH/Regular [NovoLIN 70/30] 30 unit SQ BID #60 units MDD 60 12/12/16 Unknown Rx Gabapentin [Neurontin] 300 mg PO TID #90 capsule 03/09/17 Unknown Rx Ondansetron [Zofran Odt] 4 mg PO Q8HR PRN #10 tab.rapdis 01/26/18 Unknown Rx Allergies/Adverse reactions: Allergies Allergy/AdvReac Type Severity Reaction Status Date / Time Penicillins Allergy Anaphylaxis Verified 04/17/17 08:18 sulfamethoxazole Allergy Hives Verified 04/17/17 08:18 [From Bactrim] trimethoprim [From Bactrim] Allergy Hives Verified 04/17/17 08:18 ED Review of Systems ROS: Stated complaint: N/V Other details as noted in HPI Comment: All other systems reviewed and negative Constitutional: denies: chills, fever Eyes: denies: eye pain ENT: denies: ear pain, throat pain Respiratory: denies: cough, orthopnea Cardiovascular: denies: chest pain, palpitations, dyspnea on exertion, orthopnea Endocrine: see HPI, other (patient presents stating that she is in DKA but her blood sugar was 97 in triage). denies: excessive sweating, flushing, intolerance to cold, intolerance to heat, increased hunger, increased thirst, increased urine, unexplained weight gain, unexplained weight loss Gastrointestinal: as per HPI, abdominal pain, nausea, vomiting, other (patient has a history of gastroparesis). denies: diarrhea, constipation, hematemesis, melena, hematochezia Genitourinary: denies: urgency, dysuria Musculoskeletal: denies: back pain Skin: denies: rash Neurological: denies: headache, weakness Psychiatric: denies: anxiety, depression Hematological/Lymphatic: denies: easy bleeding ED Past Medical Hx - Past Medical History Hx Congestive Heart Failure: No Hx Diabetes: Yes (Type 1) Hx Asthma: No Hx COPD: No Hx HIV: No Additional medical history: HX of MRSA. NEUROPATHY?,DKA,DM TYPE I. Gastroparesis, NON ADHERENCE - Surgical History Past Surgical History?: No - Social History Smoking Status: Never Smoker Substance Use Type: Alcohol - Medications Home Medications: Home Medications Medication Instructions Recorded Confirmed Last Taken Type Insulin Aspart [NovoLOG 100 0 units .ROUTE AC 03/04/15 03/04/17 12/07/16 History UNITS/ML VIAL] Insulin NPH/Regular [NovoLIN 70/30] 30 unit SQ BID #60 units MDD 60 12/12/16 Unknown Rx Gabapentin [Neurontin] 300 mg PO TID #90 capsule 03/09/17 Unknown Rx Ondansetron [Zofran Odt] 4 mg PO Q8HR PRN #10 tab.rapdis 01/26/18 Unknown Rx ED Physical Exam - General Limitations: No Limitations General appearance: alert, anxious - Head Head exam: Present: atraumatic, normocephalic - Eye Eye exam: Present: normal appearance, PERRL, EOMI Pupils: Present: normal accommodation - ENT ENT exam: Present: normal exam, mucous membranes moist - Neck Neck exam: Present: normal inspection. Absent: tenderness, meningismus - Respiratory Respiratory exam: Present: normal lung sounds bilaterally - Cardiovascular Cardiovascular Exam: Present: regular rate, tachycardia, normal heart sounds - GI/Abdominal GI/Abdominal exam: Present: soft, normal bowel sounds, other (patient complains of generalized abdominal pain and his dramatic on exam touching her with the lightest pressure response is very inappropriate. She's telling me she is in DKA. She is asking for IV fluids.). Absent: distended, tenderness, guarding, rebound, rigid, diminished bowel sounds, hyperactive bowel sounds, hypoactive bowel sounds, organomegaly, mass, bruit, pulsatile mass, hernia - Rectal Rectal exam: Present: deferred - Extremities Exam Extremities exam: Present: normal inspection, full ROM, normal capillary refill. Absent: tenderness, pedal edema, joint swelling - Back Exam Back exam: Present: normal inspection, full ROM. Absent: tenderness, CVA tenderness (R), CVA tenderness (L) - Neurological Exam Neurological exam: Present: alert, oriented X3, CN II-XII intact, normal gait, reflexes normal - Psychiatric Psychiatric exam: Present: anxious - Skin Skin exam: Present: warm, dry, intact, normal color. Absent: rash ED Course Vital Signs 01/26/18 01/26/18 11:53 14:54 Temperature 98.6 F Pulse Rate 108 H 109 H Respiratory 18 16 Rate Blood Pressure 128/85 O2 Sat by Pulse 100 100 Oximetry ED Medical Decision Making - Lab Data Result diagrams: 01/26/18 12:38 01/26/18 12:46 - Medical Decision Making BS 97 WHEN PT YELLING SHE IS IN "DKA PLEASE BELIEVE ME" CO N/V W HX GASTROPARESIS AND DM I LABS NOTED UA NOTED PH NON ACIDOTIC ASKING FOR PAIN MEDS- KNOWN TO BE NON ADH W MEDS 2 l NS AND ZOFRAN/HALDOL HR TRENDING DOWN BP NORMAL SHE HAS HAD NO N/V. PASSED PO CHALLENGE. AMBULATORY SHE HAS HOME MEDS FOLLOW UP PCP - Differential Diagnosis DM NON ADH HYPERGLYCEMIA V DKA; ABD PAIN HX GASTROPERESIS ED Disposition Clinical Impression: DKA, type 1, Abdominal pain, Gastroparesis Disposition: - TO HOME OR SELFCARE Is pt being admited?: No Does the pt Need Aspirin: No Condition: Stable Instructions: Acute Nausea and Vomiting (ED) Additional Instructions: DIABETIC DIET TOLERATED HYDRATE WELL FOLLOW UP WITH PCP THIS WEEK ACTIVITY TOLERATED HOME MEDS PER REGIMEN Prescriptions: Ondansetron [Zofran Odt] 4 mg PO Q8HR PRN #10 tab.rapdis PRN Reason: Nausea Referrals: KENYATTA MENA JR, MD [Staff Physician] - 3-5 Days Time of Disposition: 14:09
[2018-01-26 13:05] LABS: Basophils % (Auto) 0.5 % (0.0-1.8); Hematocrit 39.1 % (30.3-42.9); Lymphocytes # (Auto) 1.1 K/mm3 (1.2-5.4); Lymphocytes % (Auto) 12.7 % (13.4-35.0); Mean Corpuscular HGB Conc 33 % (30-34); Mean Corpuscular Hemoglobin 29 pg (28-32); Mean Corpuscular Volume 87 fl (79-97); Monocytes # (Auto) 0.6 K/mm3 (0.0-0.8); Monocytes % (Auto) 6.8 % (0.0-7.3); Platelet Count 392 K/mm3 (140-440); Red Blood Count 4.49 M/mm3 (3.65-5.03); Red Cell Distribution Width 14.1 % (13.2-15.2)
[2018-01-26 13:25] LABS: BUN/Creatinine Ratio 19; Blood Urea Nitrogen 17 mg/dL (7-17); Calcium 10.1 mg/dL (8.4-10.2); Hemolysis Index 8
[2018-01-26] MEDS ORDERED: HALDOL IM ONE (13:28)
[2018-01-26] MEDS ORDERED: ALUM-MAG HYDROX-SIMETH 200-200-20MG/5ML PO ONE (13:29)
[2018-01-26] MEDS ORDERED: LIDOCAINE VISCOUS 2% PO ONE (13:29)
[2018-01-26 13:57] LABS: Bacteria,Urine 1+ /HPF (Negative); Bilirubin,Urine NEG (Negative); Blood,Urine NEG (Negative); Color,Urine Yellow (Yellow); Mucus,Urine FEW /HPF; Urobilinogen,Urine < 2.0 mg/dL (<2.0)
[2018-01-26 14:01] LABS: Amorphous Crystals,Urine 2+
[2018-01-26 14:03] LABS: HCG Qualitative,Urine Negative (Negative)
[2018-01-26 16:06] VITALS: BP 112/79
== END 2018-01-26 16:17 | disposition home or self-care (01) ==
LOC: ED 11:39
DX: K31.84 Gastroparesis (principal); E10.10 Type 1 diabetes mellitus with ketoacidosis without coma; Z88.0 Allergy status to penicillin; Z88.2 Allergy status to sulfonamides; Z79.4 Long term (current) use of insulin
CPT/HCPCS: 36415; 80048; 81001; 81025; 82805; 82962; 84703; 85025; 93005; 93010; 96360; 96361; 96372; 99284; J1630; J7030; Q0162

== ENCOUNTER 2018-05-13 07:38 | Emergency (ER) | payer SELFPAY ==
[2018-05-13] MEDS ORDERED: GEODON IM ONE (08:21)
[2018-05-13] MEDS ORDERED: ZOFRAN IV ONE (08:21)
[2018-05-13] MEDS ORDERED: TORADOL IV ONE (08:21)
[2018-05-13] MEDS ORDERED: PEPCID IV ONE (08:21)
[2018-05-13] MEDS ORDERED: NACL 0.9% 1000 ML 1,000 ML IV ONE (08:21)
[2018-05-13 08:29] LABS: Hematocrit 37.5 % (30.3-42.9); Hemoglobin 12.5 gm/dl (10.1-14.3); Mean Corpuscular HGB Conc 33 % (30-34); Mean Corpuscular Volume 88 fl (79-97); Red Blood Count 4.27 M/mm3 (3.65-5.03); Red Cell Distribution Width 13.9 % (13.2-15.2)
[2018-05-13 08:30] LABS: Basophils # (Auto) 0.1 K/mm3 (0.0-0.1); Eosinophils % (Auto) 0.3 % (0.0-4.3); Lymphocytes # (Auto) 2.5 K/mm3 (1.2-5.4); Lymphocytes % (Auto) 32.1 % (13.4-35.0); Monocytes # (Auto) 0.7 K/mm3 (0.0-0.8); Monocytes % (Auto) 8.6 % (0.0-7.3); Platelet Count 356 K/mm3 (140-440)
[2018-05-13 08:35] LABS: Alanine Aminotransferase 63 units/L (7-56); Albumin 3.7 g/dL (3.9-5); BUN/Creatinine Ratio 25; Blood Urea Nitrogen 20 mg/dL (7-17); Calcium 9.6 mg/dL (8.4-10.2); Hemolysis Index 8
[2018-05-13] MEDS ORDERED: WATER FOR INJ Sterile (PF) 10 ML ONE (09:59)
[2018-05-13] MEDS ORDERED: MORPHINE IV ONE (10:00)
[2018-05-13 10:19] LABS: Bilirubin,Urine NEG (Negative); Blood,Urine NEG (Negative); Color,Urine Yellow (Yellow); Hyaline Casts,Urine 1 /LPF; Mucus,Urine FEW /HPF; Protein,Urine <15 mg/dL mg/dL (Negative); Urobilinogen,Urine < 2.0 mg/dL (<2.0)
[2018-05-13 10:21] VITALS: BP 123/77
[2018-05-13] MEDS ORDERED: REGLAN IV ONE (10:37)
[2018-05-13 10:47] LABS: Amphetamine Screen,Urine PRESUMPTIVE NEGATIVE; Benzodiazepines Screen,Urine PRESUMPTIVE NEGATIVE; Cannabinoid Screen,Urine PRESUMPTIVE NEGATIVE; Cocaine Screen,Urine PRESUMPTIVE NEGATIVE; Methadone Screen,Urine PRESUMPTIVE NEGATIVE; Opiate Screen,Urine PRESUMPTIVE NEGATIVE
--- NOTE | 2018-05-13 11:56 | Emergency Department Report ---
ED Abdominal Pain HPI - General Chief Complaint: Abdominal Pain Stated Complaint: CHEST PAIN/DKA Time Seen by Provider: 05/13/18 08:17 Source: patient Mode of arrival: Wheelchair Limitations: No Limitations - History of Present Illness Initial Comments: Patient is a 23-year-old female who is complaining of epigastric discomfort and nausea vomiting. Patient is diabetic and states she has a history of gastroparesis. Patient states she has been unable to keep anything down for approximately a week. She has had some stressors in her life recently and her mother has just had surgery. Patient states she is having pain in the epigastrium that is 10 out of 10 in severity. Patient denies any fevers chills diarrhea at this time. Severity scale (0 -10): 0 - Related Data Home Medications Medication Instructions Recorded Confirmed Last Taken Insulin Aspart [NovoLOG 100 0 units .ROUTE AC 03/04/15 03/04/17 12/07/16 UNITS/ML VIAL] Previous Rx's Medication Instructions Recorded Last Taken Type Insulin NPH/Regular [NovoLIN 70/30] 30 unit SQ BID #60 units MDD 60 12/12/16 Unknown Rx Gabapentin [Neurontin] 300 mg PO TID #90 capsule 03/09/17 Unknown Rx Ondansetron [Zofran Odt] 4 mg PO Q8HR PRN #10 tab.rapdis 01/26/18 Unknown Rx Dicyclomine [Bentyl] 10 mg PO QID #15 capsule 05/13/18 Unknown Rx Famotidine [Pepcid] 40 mg PO QHS #10 tablet 05/13/18 Unknown Rx Ondansetron [Zofran Odt] 4 mg PO Q8HR PRN #12 tab.rapdis 05/13/18 Unknown Rx Allergies Allergy/AdvReac Type Severity Reaction Status Date / Time Penicillins Allergy Anaphylaxis Verified 04/17/17 08:18 sulfamethoxazole Allergy Hives Verified 04/17/17 08:18 [From Bactrim] trimethoprim [From Bactrim] Allergy Hives Verified 04/17/17 08:18 ED Review of Systems ROS: Stated complaint: CHEST PAIN/DKA Other details as noted in HPI Comment: All other systems reviewed and negative ED Past Medical Hx - Past Medical History Hx Congestive Heart Failure: No Hx Diabetes: Yes (Type 1) Hx Asthma: No Hx COPD: No Hx HIV: No Additional medical history: HX of MRSA. NEUROPATHY?,DKA,DM TYPE I. Gastroparesis, NON ADHERENCE - Social History Smoking Status: Never Smoker Substance Use Type: None - Medications Home Medications: Home Medications Medication Instructions Recorded Confirmed Last Taken Type Insulin Aspart [NovoLOG 100 0 units .ROUTE AC 03/04/15 03/04/17 12/07/16 History UNITS/ML VIAL] Insulin NPH/Regular [NovoLIN 70/30] 30 unit SQ BID #60 units MDD 60 12/12/16 03/04/17 Unknown Rx Gabapentin [Neurontin] 300 mg PO TID #90 capsule 03/09/17 Unknown Rx Ondansetron [Zofran Odt] 4 mg PO Q8HR PRN #10 tab.rapdis 01/26/18 Unknown Rx Dicyclomine [Bentyl] 10 mg PO QID #15 capsule 05/13/18 Unknown Rx Famotidine [Pepcid] 40 mg PO QHS #10 tablet 05/13/18 Unknown Rx Ondansetron [Zofran Odt] 4 mg PO Q8HR PRN #12 tab.rapdis 05/13/18 Unknown Rx ED Physical Exam - General Limitations: No Limitations General appearance: alert, in distress - Head Head exam: Present: atraumatic, normocephalic - Eye Eye exam: Present: normal appearance - ENT ENT exam: Present: mucous membranes moist - Neck Neck exam: Present: normal inspection - Respiratory Respiratory exam: Present: normal lung sounds bilaterally. Absent: respiratory distress, wheezes, rales, rhonchi - Cardiovascular Cardiovascular Exam: Present: regular rate, normal rhythm. Absent: systolic murmur, diastolic murmur, rubs, gallop - GI/Abdominal GI/Abdominal exam: Present: soft, tenderness (epigastric), normal bowel sounds. Absent: distended, guarding, rebound, rigid - Extremities Exam Extremities exam: Present: normal inspection - Back Exam Back exam: Present: normal inspection - Neurological Exam Neurological exam: Present: alert, oriented X3 - Psychiatric Psychiatric exam: Present: normal affect, normal mood - Skin Skin exam: Present: warm, dry, intact, normal color. Absent: rash ED Course Vital Signs 05/13/18 05/13/18 05/13/18 07:42 09:14 09:44 Temperature 98.2 F Pulse Rate 114 H Respiratory 18 18 17 Rate Blood Pressure 133/100 Blood Pressure [Right] O2 Sat by Pulse 98 Oximetry 05/13/18 05/13/18 10:18 10:19 Temperature 97.8 F Pulse Rate 91 H Respiratory 17 17 Rate Blood Pressure Blood Pressure 123/77 [Right] O2 Sat by Pulse 98 Oximetry ED Medical Decision Making - Lab Data Result diagrams: 05/13/18 07:58 05/13/18 07:58 Lab Results 05/13/18 05/13/18 05/13/18 Range/Units 07:46 07:58 07:58 WBC 7.8 (4.5-11.0) K/mm3 RBC 4.27 (3.65-5.03) M/mm3 Hgb 12.5 (10.1-14.3) gm/dl Hct 37.5 (30.3-42.9) % MCV 88 (79-97) fl MCH 29 (28-32) pg MCHC 33 (30-34) % RDW 13.9 (13.2-15.2) % Plt Count 356 (140-440) K/mm3 Lymph % (Auto) 32.1 (13.4-35.0) % Webster % (Auto) 8.6 H (0.0-7.3) % Eos % (Auto) 0.3 (0.0-4.3) % Baso % (Auto) 1.0 (0.0-1.8) % Lymph # 2.5 (1.2-5.4) K/mm3 Webster # 0.7 (0.0-0.8) K/mm3 Eos # 0.0 (0.0-0.4) K/mm3 Baso # 0.1 (0.0-0.1) K/mm3 Seg Neutrophils % 58.0 (40.0-70.0) % Seg Neutrophils # 4.5 (1.8-7.7) K/mm3 Sodium 136 L (137-145) mmol/L Potassium 4.0 (3.6-5.0) mmol/L Chloride 90.6 L (98-107) mmol/L Carbon Dioxide 21 L (22-30) mmol/L Anion Gap 28 mmol/L BUN 20 H (7-17) mg/dL Creatinine 0.8 (0.7-1.2) mg/dL Estimated GFR > 60 ml/min BUN/Creatinine Ratio 25 % Glucose 117 H (65-100) mg/dL POC Glucose 110 H (70-105) Calcium 9.6 (8.4-10.2) mg/dL Total Bilirubin < 0.20 (0.1-1.2) mg/dL AST 89 H (5-40) units/L ALT 63 H (7-56) units/L Alkaline Phosphatase 207 H (35-129) units/L Total Protein 7.1 (6.3-8.2) g/dL Albumin 3.7 L (3.9-5) g/dL Albumin/Globulin Ratio 1.1 % Lipase 18 (13-60) units/L HCG, Qual (Negative) Urine Color (Yellow) Urine Turbidity (Clear) Urine pH (5.0-7.0) Ur Specific Mary[place] (1.003-1.030) Urine Protein (Negative) mg/dL Urine Glucose (UA) (Negative) mg/dL Urine Ketones (Negative) mg/dL Urine Blood (Negative) Urine Nitrite (Negative) Urine Bilirubin (Negative) Urine Urobilinogen (<2.0) mg/dL Ur Leukocyte Esterase (Negative) Urine WBC (Auto) (0.0-6.0) /HPF Urine RBC (Auto) (0.0-6.0) /HPF U Epithel Cells (Auto) (0-13.0) /HPF Hyaline Casts /LPF Urine Mucus /HPF Urine Opiates Screen Urine Methadone Screen Ur Barbiturates Screen Ur Phencyclidine Scrn Ur Amphetamines Screen U Benzodiazepines Scrn Urine Cocaine Screen U Marijuana (THC) Screen Drugs of Abuse Note 05/13/18 05/13/18 05/13/18 Range/Units 07:58 Unknown Unknown WBC (4.5-11.0) K/mm3 RBC (3.65-5.03) M/mm3 Hgb (10.1-14.3) gm/dl Hct (30.3-42.9) % MCV (79-97) fl MCH (28-32) pg MCHC (30-34) % RDW (13.2-15.2) % Plt Count (140-440) K/mm3 Lymph % (Auto) (13.4-35.0) % Webster % (Auto) (0.0-7.3) % Eos % (Auto) (0.0-4.3) % Baso % (Auto) (0.0-1.8) % Lymph # (1.2-5.4) K/mm3 Webster # (0.0-0.8) K/mm3 Eos # (0.0-0.4) K/mm3 Baso # (0.0-0.1) K/mm3 Seg Neutrophils % (40.0-70.0) % Seg Neutrophils # (1.8-7.7) K/mm3 Sodium (137-145) mmol/L Potassium (3.6-5.0) mmol/L Chloride (98-107) mmol/L Carbon Dioxide (22-30) mmol/L Anion Gap mmol/L BUN (7-17) mg/dL Creatinine (0.7-1.2) mg/dL Estimated GFR ml/min BUN/Creatinine Ratio % Glucose (65-100) mg/dL POC Glucose (70-105) Calcium (8.4-10.2) mg/dL Total Bilirubin (0.1-1.2) mg/dL AST (5-40) units/L ALT (7-56) units/L Alkaline Phosphatase (35-129) units/L Total Protein (6.3-8.2) g/dL Albumin (3.9-5) g/dL Albumin/Globulin Ratio % Lipase (13-60) units/L HCG, Qual Negative (Negative) Urine Color Yellow (Yellow) Urine Turbidity Clear (Clear) Urine pH 5.0 (5.0-7.0) Ur Specific Mary[place] 1.024 (1.003-1.030) Urine Protein <15 mg/dl (Negative) mg/dL Urine Glucose (UA) >=500 (Negative) mg/dL Urine Ketones Tr (Negative) mg/dL Urine Blood Neg (Negative) Urine Nitrite Neg (Negative) Urine Bilirubin Neg (Negative) Urine Urobilinogen < 2.0 (<2.0) mg/dL Ur Leukocyte Esterase Neg (Negative) Urine WBC (Auto) 2.0 (0.0-6.0) /HPF Urine RBC (Auto) 1.0 (0.0-6.0) /HPF U Epithel Cells (Auto) 1.0 (0-13.0) /HPF Hyaline Casts 1 /LPF Urine Mucus Few /HPF Urine Opiates Screen Presumptive negative Urine Methadone Screen Presumptive negative Ur Barbiturates Screen Presumptive negative Ur Phencyclidine Scrn Presumptive negative Ur Amphetamines Screen Presumptive negative U Benzodiazepines Scrn Presumptive negative Urine Cocaine Screen Presumptive negative U Marijuana (THC) Screen Presumptive negative Drugs of Abuse Note Disclamer - Medical Decision Making Patient was given IV fluids and meds for symptomatic relief. Patient's symptoms have calmed down as she is no longer vomiting here in the emergency department. Patient be discharged home. Critical care attestation.: If time is entered above; I have spent that time in minutes in the direct care of this critically ill patient, excluding procedure time. ED Disposition Clinical Impression: Gastroparesis Disposition: DC-01 TO HOME OR SELFCARE Is pt being admited?: No Does the pt Need Aspirin: No Condition: Stable Instructions: Acute Nausea and Vomiting (ED) Referrals: ANIKET WEST MD [Primary Care Provider] - 3-5 Days Time of Disposition: 11:55
== END 2018-05-13 12:10 | disposition home or self-care (01) ==
LOC: ED 07:38
DX: K31.84 Gastroparesis (principal); E10.9 Type 1 diabetes mellitus without complications; Z79.4 Long term (current) use of insulin; Z88.0 Allergy status to penicillin; Z88.2 Allergy status to sulfonamides; Z79.899 Other long term (current) drug therapy
CPT/HCPCS: 36415; 80053; 80307; 81001; 82962; 83690; 84703; 85025; 96361; 96372; 96374; 96375; 99283; J1885; J2270; J2405; J2765; J3486; J7030